=== PATIENT | male | born 1950 | race African-American/Black ===

== ENCOUNTER 2018-04-01 06:53 | Inpatient (IN) | payer MEDICARE, MEDICAID ==
[2018-04-01] MEDS ORDERED: Aspirin 325 MG TAB ONE (07:52)
[2018-04-01 08:01] LABS: CKMB 2.5 ng/mL (0-6.6); Troponin I 0.097 ng/mL (< 0.028)
[2018-04-01] MEDS ORDERED: Ondansetron ODT 4 MG TAB SL PRN (09:21)
[2018-04-01] MEDS ORDERED: Ondansetron HCl/PF 4 MG/2 ML Vial IVP PRN (09:21)
[2018-04-01] MEDS ORDERED: Acetaminophen 325 MG TAB PO PRN ×2 (09:21→13:52)
[2018-04-01 10:31] LABS: HBSAB Concentration 5.08 mIU/mL; HBSAg Index 0.25 S/CO (0-0.99); Hep B Surf AB Non-Reactive (NonReactive); Hep B Surf Ag Non-Reactive S/CO (NonReactive)
--- NOTE | 2018-04-01 12:12 | CON ---
DATE OF CONSULTATION: 04/01/2018 REASON FOR CONSULTATION: End-stage renal disease for maintenance hemodialysis. HISTORY OF PRESENT ILLNESS: This is a very pleasant 67-year-old gentleman who presented to the [facility] with a 1 day history of increasing shortness of breath. The patient did dialyze yesterday. The patient has ascites as well as hepatitis C. PAST MEDICAL HISTORY: Significant for end-stage renal disease, hypertension, anemia, AV fistula, alicia neled dialysis catheter, atrial fibrillation, hepatitis C, COPD. ALLERGIES: Reviewed. SOCIAL AND ECONOMIC HISTORY: No alcohol or IV drug abuse. FAMILY HISTORY: Negative for end-stage renal disease. REVIEW OF SYSTEMS: A 15-point review of systems was performed and negative except for positives note d above. GENERAL: Weakness-. HEAD: Headache-. NECK: No swelling or lumps. NOSE: No epistaxis or discharge. EYES: No diplopia or pain. RESPIRATORY: Dyspnea-. CARDIOVASCULAR: Chest pain-. GASTROINTESTINAL: Nausea-. /MANAGER SOURCING: Hematuria-. MUSCULOSKELETAL: No joint pain. NEUROPSYCHIATIC SYSTEMS: No suicidal ideation. No ideation. SKIN: Denies any rash or ulcer. CONSTITUTIONAL: No fever or chills. PHYSICAL EXAMINATION: GENERAL: Patient is awake, alert. VITAL SIGNS: Afebrile, pulse 70, breathing at 16, blood pressure 130/70. GENERAL APPEARANCE AND MENTAL STATUS: Fair. HEAD/NECK: Normocephalic. Atraumatic. EYES: EOMI. No deformity. EARS: Clear. No ulcers. NOSE: Intact. No lesions. MOUTH: Clear. No discharge. THROAT: Clear. No exudate. LUNGS: Clear. No crackles. CARDIAC: S1, S2. No rub. ABDOMEN: Benign. BS+. GENITALIA/RECTUM: Rosario absent. BACK/EXTREMITIES: Edema 0+ Ulcer-. NEUROLOGICAL: Alert and motor intact. SKIN: Rash- Bruise- LYMPHATICS: Edema- Ulcer-. LABORATORY DATA: Show potassium is 4.7. ASSESSMENT AND PLAN: 1. Stage 6 chronic kidney disease, we will plan hemodialysis. 2. Hypertension, stable. 3. Anemia, stable. 4. Medication based on glomerular filtration rate is appropriate.
[2018-04-01 13:21] LABS: Troponin I 0.098 ng/mL (< 0.028)
[2018-04-01] MEDS ORDERED: PROVENTIL INHALER 6.7 G (200 INHALATIONS) INH PRN (14:02)
[2018-04-01 15:01] LABS: INR-International Normal Ratio 1.2; PTT 35.7 SEC (22.9-36.1); Prothrombin Time 15.6 SEC (12.0-14.7)
[2018-04-01] MEDS ORDERED: Warfarin Sodium 7.5 MG TAB PO SCH (17:00)
--- NOTE | 2018-04-01 17:28 | CON ---
DATE OF CONSULTATION: 04/01/2018 REASON FOR CONSULTATION: Atrial flutter. HISTORY OF PRESENT ILLNESS: Mr. Molina is a pleasant 67-year-old - [place] gentleman who comes to the hospital for shortness of breath. He has end-stage renal disease on hemodialysis and has a hepatitis C with cirrhosis. He has a history of atrial fibrillation, which according to him, he was diagnosed recently with this and he comes in short of breath. He was found to be a little volume overload, so he had another round of hemodialysis and on monitoring, it was found that he was in atrial flutter with 3:1 block and Cardiology is being consulted for this. Mr. Molina states his breathing is a little better after the other round of dialysis today. PAST MEDICAL HISTORY: 1. End-stage renal disease on hemodialysis above. 2. Hypertension. 3. Anemia of chronic disease. 4. Atrial fibrillation. 5. Hepatitis C cirrhosis. 6. COPD. PAST SURGICAL HISTORY: 1. AV fistula. 2. Hemodialysis catheter in the past. 3. Paracentesis for diagnostic purposes in the past. OUTPATIENT MEDICATIONS: Include: 1. Dialyvite 800 Ultra D. 2. Oracle p.r.n. 3. Minoxidil 5 mg p.o. b.i.d. 4. Sensipar. 5. Norvasc 10 mg a day. 6. Losartan 100 mg a day. 7. Metoprolol tartrate 25 mg b.i.d. 8. Warfarin 7.5 mg a day. ALLERGIES: No known drug allergies. SOCIAL HISTORY: No alcohol, tobacco or drugs. FAMILY HISTORY: Noncontributory. REVIEW OF SYSTEMS: A 12-point review of systems was done and is all negative except stated in history of present illness. PHYSICAL EXAMINATION: VITAL SIGNS: Temperature 98.6, pulse 105 to 115, respiratory rate 18, satting 97% on 2 liters, blood pressure 147/89. GENERAL: Awake, alert, oriented x3, in no distress. HEENT: Normocephalic, atraumatic. NECK: Supple. LUNGS: Lungs are reduced breath sounds bilaterally. CARDIOVASCULAR: S1, S2. Heart rate in the 110s. ABDOMEN: Distended with positive ascitic wave. EXTREMITIES: 1+ edema. SKIN: Warm and dry. LABORATORY WORK: Reviewed. CBC with a white count of 7.3, hemoglobin of 8.6, hematocrit 26.7, and platelet count 179. Coags were unremarkable. INR is 1.2, suggestive of him not taking any of his warfarin. Chemistries with sodium of 142, potassium 4.7, BUN 57, creatinine 10.18, GFR of 6. Lactic acid was 1.5. Ammonia was 87, CK-MB of 2.6 and 2.5. Troponin I is 0.12, 0.09 and 0.09. BNP was . Plasma alcohol was undetectable. Hepatitis B surface antigen and antibody surface antigen and antibody are both nonreactive. Chest x-ray, stable cardiomegaly but no CHF. ASSESSMENT AND PLAN: 1. Atrial flutter. 2. History of atrial fibrillation. 3. Hepatitis C cirrhosis. 4. End-stage renal disease, on hemodialysis. 5. Volume overload. 6. Elevated ammonia level. PLAN: 1. We will slow him down with IV diltiazem. 2. He has very few choices for antiarrhythmics given his liver dysfunction. We will consult EP if he does not convert in the next few days, therefore unable to slow him down. 3. Would stop warfarin for now. He has elevated ammonia which could indicate GI bleeding and with cirrhosis not a good candidate for any anticoagulation. Thank you for letting us to assist in the care of your patient. We will follow. TORI
--- NOTE | 2018-04-01 18:02 | HP ---
DATE OF ADMISSION: 04/01/2018 CHIEF COMPLAINT: Shortness of breath. HISTORY OF PRESENT ILLNESS: Patient is a very pleasant 67-year-old male who presents to the hospital with shortness of breath x1 week. Patient has a history of cirrhosis secondary to hepatitis C. He has a history of end-stage renal disease on dialysis. The patient further states that he was at [facility] a few days ago for about a week for shortness of breath. The patient does not recall what was done at the hospital; however, stated that he went home, felt very short of breath and so he decided to come back to the hospital and since he had elevated troponins, he was transferred here for further evaluation. Patient states that he has been going to dialysis every single day while he was at the hospital at [place]. The patient denies any fevers or chills. He denied any chest pain. Patient states that normally he is able to walk around; however, for the past month he has not been able to walk around very much. He gets very short of breath. He does use 2 liters of oxygen on a daily basis. PAST MEDICAL HISTORY: He has a history of cirrhosis. He has a history of hepatitis C, hypertension, end-stage renal disease. PAST SURGICAL HISTORY: He has had a bypass. He also has a fistula, has a hernia repair. SOCIAL HISTORY: The patient has a history of smoking in the past; however, currently does not smoke. Denies any alcohol or drug use. The decision maker, patient mentioned, are his kids and the patient wants to be a F[employer]. FAMILY HISTORY: Denies any history of heart disease or heart failure. ALLERGIES: No known allergies. CURRENT MEDICATIONS: He takes metoprolol 150 mg twice a day, losartan 100 mg daily, Sensipar 60 mg daily, Coumadin 7.5 mg daily, amlodipine 10 mg daily, calcium acetate 1 daily, [place] 10/325 q.6 hours p.r.n. PHYSICAL EXAMINATION: VITAL SIGNS: Temperature of 98.6, 105, 18, 97 on 2 liters, 147/89. GENERAL: He is awake, alert, oriented x3, appears a little short of breath. He appears more older than his stated age. HEENT: Patient has significant dilated superficial veins, especially noted in his left upper extremity where his dialysis all the way up to his chest is. He does have significant JVD which is noted. CARDIOVASCULAR: S1, S2 present, which is irregularly irregular. He appears to be a little tachycardic. LUNGS: Mild decreased breath sounds bilaterally with mild crackles to bilateral lower bases. ABDOMEN: Obese. Bowel sounds present. EXTREMITIES: No edema to lower extremities. NEUROLOGIC: No focal deficits noted. SKIN: Intact. No cuts or lesions noted. REVIEW OF SYSTEMS: All negative except the ones mentioned above in the HPI. LABORATORY RESULTS: Are the following: WBC of 7.3, hemoglobin of 8.6, hematocrit of 26.7, platelets of 179. Chemistry: Sodium of 142, potassium of 4.7, BUN of 57, creatinine of 10.18. His proBNP is 3736. Troponins are mildly elevated. Ammonia level is 87. He did have a chest x-ray which indicated cardiomegaly with mild effusion. The chest x-ray is indicated that the patient has a new endograft stent overlying the medial aspect of the left upper hemothorax. ASSESSMENT AND PLAN: The patient is a very pleasant 67-year-old male who presents to the hospital with shortness of breath. 1. Shortness of breath. This could be secondary to acute on chronic, there is systolic versus diastolic heart failure. I do have an echocardiogram; however, this was done in 2015. I do not have a recent echocardiogram. We will try and get records from [facility] and see if this is in terms of heart failure. The other possibilities could be secondary to volume overload secondary to end-stage renal disease and also cirrhosis. Patient states he has been going to his dialysis sessions. We will consult Nephrology to continue that. 2. Atrial flutter. He is mildly tachycardic. We will consult Cardiology also , put the patient on some rate-limiting medications to hopefully slow down the heart rate a little bit. 3. Hypertension. We will continue patient's home medications. 4. End-stage renal disease on dialysis. We will consult Nephrology. 5. Mildly elevated troponins. We will get an echocardiogram and also get results from [facility]. 6. Deep venous thrombosis prophylaxis. will put pt on scd. hold Coumadin high risk of bleeding MTDD
[2018-04-01] MEDS: Diltiazem 125 MG in Sodium Chloride 0.9% 100 ML IVPB SCH (18:19)
[2018-04-01] MEDS: Cinacalcet HCl 30 MG TAB PO SCH (20:14)
[2018-04-01] MEDS: Metoprolol Tartrate 100 MG TAB PO SCH (20:14)
[2018-04-01] MEDS ORDERED: Prevnar 13-Val Conj/PF 0.5 ML SYRINGE IM ONE (21:00)
[2018-04-02 05:51] LABS: Anion Gap 19 mmol/L (10-20); BUN (Urea Nitrogen) 55 mg/dL (8.4-25.7); Calc. Creatinine Clearance 7 mL/min (70-130); Calcium 10.1 mg/dL (7.8-10.44); Carbon Dioxide 24 mmol/L (23-31); Chloride 102 mmol/L (98-107); Estimated GFR-MDRD 7; Glucose 96 mg/dL (80-115); Potassium 5.3 mmol/L (3.5-5.1); Sodium 140 mmol/L (136-145)
[2018-04-02 06:58] LABS: Band 1 % (5-11); Eosinophils 3 % (0-10); Lymphocytes 14 % (21-51); MDiff Complete? YES; Mean Corpuscular HGB CONC 31.9 g/dL (32.0-36.0); Mean Corpuscular Volume 94.2 fL (78.0-98.0); Monocytes 10 % (0-10); Neutrophil 71 % (42-75); PLT Morphology Comment Appears Adequate; Platelet Count 198 thou/uL (130-400); RBC Distribution Width 15.3 % (11.5-14.5); Red Blood Cell (RBC) Count 2.99 mill/uL (4.70-6.10); Target Cells SLIGHT = 2-5 cells (100X) (0-1/hpf); White Blood Cell (WBC) Count 7.9 thou/uL (4.8-10.8)
[2018-04-02] MEDS ORDERED: Losartan 25 MG TAB PO SCH (09:00)
[2018-04-02] MEDS ORDERED: Ondansetron HCl/PF 4 MG/2 ML Vial IVP SCH (09:00)
[2018-04-02] MEDS ORDERED: Pantoprazole 40 MG VIAL IVP SCH (10:00)
[2018-04-02] MEDS: Cinacalcet HCl 30 MG TAB PO SCH ×2 (11:59→21:18)
[2018-04-02] MEDS: Aspirin 81 mg Enteric Coated Tablet PO SCH (12:00)
[2018-04-02] MEDS: Metoprolol Tartrate 100 MG TAB PO SCH ×2 (12:00→21:22)
[2018-04-02] MEDS: Amlodipine 10 MG TAB PO SCH (12:00)
--- NOTE | 2018-04-02 12:11 | CT ---
CT BRAIN PERFORMED WITHOUT CONTRAST ENHANCEMENT: Date: 04/02/18 HISTORY: Altered mental status, right-sided weakness. COMPARISON: 06/06/03 study. FINDINGS: There is generalized ventricular and sulcal prominence. There is decreased attenuation of the periven tricular white matter. There are no signs of intracerebral hemorrhage or extra-axial fluid collection s. Mastoid air cells and visualized sinuses are clear. IMPRESSION: No acute intracranial abnormalities. POS: [facility]
[2018-04-02 12:19] LABS: Hemoglobin 8.9 g/dL (14.0-18.0)
[2018-04-02 12:42] LABS: Anion Gap 17 mmol/L (10-20); BUN (Urea Nitrogen) 61 mg/dL (8.4-25.7); Calc. Creatinine Clearance 7 mL/min (70-130); Calcium 9.7 mg/dL (7.8-10.44); Carbon Dioxide 27 mmol/L (23-31); Chloride 102 mmol/L (98-107); Estimated GFR-MDRD 7; Glucose 91 mg/dL (80-115); Potassium 5.5 mmol/L (3.5-5.1); Sodium 140 mmol/L (136-145)
--- NOTE | 2018-04-02 13:28 | PRG ---
DATE OF SERVICE: 04/30/2018 SUBJECTIVE: A 67-year-old gentleman being seen for acute kidney injury. The patient denies any naus ea, vomiting, or chest pain. PHYSICAL EXAMINATION: GENERAL: Patient is awake, alert. VITAL SIGNS: Afebrile, pulse 74, breathing 16, blood pressure 138/85. HEAD/NECK: Normocephalic. Atraumatic. EYES: EOMI. No deformity. EARS: Clear. No ulcers. NOSE: Intact. No lesions. MOUTH: Clear. No discharge. THROAT: Clear. No exudate. LUNGS: Clear. No crackles. CARDIAC: S1, S2. No rub. ABDOMEN: Benign. BS+. GENITALIA/RECTUM: Rosario absent. BACK/EXTREMITIES: Edema 0+ Ulcer- NEUROLOGICAL: Alert and motor intact. SKIN: Rash- Bruise- LYMPHATICS: Edema- Ulcer- LABORATORY DATA: Show hemoglobin 8.9, potassium is 5.5. ASSESSMENT AND RECOMMENDATIONS: 1. Stage 6 chronic kidney disease, plan dialysis today. 2. Hyperkalemia, plan dialysis. 3. Anemia, stable. 4. Medications based on glomerular filtration rate are appropriate.
--- NOTE | 2018-04-02 14:37 | PDOC.PN ---
- Subjective Encounter Start Date: 04/02/18 Encounter Start Time: 10:30 Subjective: pt up in bed appeared confused this am - Objective Resuscitation Status: Resuscitation Status FULL:Full Resuscitation Vital Signs & Weight: Vital Signs (12 hours) Temp Pulse Resp BP BP Pulse Ox 04/02/18 12:00 104 H 04/02/18 11:49 97.7 F 104 H 18 156/98 H 99 04/02/18 09:05 98.1 F 104 H 18 92 L 04/02/18 08:34 98.1 F 107 H 20 138/85 92 L 04/02/18 04:00 97.8 F 73 19 150/74 H 96 Weight Weight 141 lb 9.6 oz I&O: 04/01/18 04/02/18 04/03/18 06:59 06:59 06:59 Intake Total 963.1 240 Output Total 300 Balance 663.1 240 Result Diagrams: 04/02/18 12:11 04/02/18 12:11 Phys Exam - Physical Examination pt has significant dilated superfical veins Neck: no nodes, no JVD, supple, full ROM decreased breath sound to bases Cardiovascular: RRR, no significant murmur, no rub, gallop, irregular Gastrointestinal: soft, non-tender, no distention, positive bowel sounds Musculoskeletal: no edema, pulses present, edema present Dx/Plan (1) SOB (shortness of breath) Code(s): R06.02 - SHORTNESS OF BREATH Status: Acute (2) Cirrhosis Code(s): K74.60 - UNSPECIFIED CIRRHOSIS OF LIVER Status: Acute (3) ESRD (end stage renal disease) on dialysis Code(s): N18.6 - END STAGE RENAL DISEASE; Z99.2 - DEPENDENCE ON RENAL DIALYSIS Status: Chronic (4) Hyperkalemia Code(s): E87.5 - HYPERKALEMIA Status: Acute - Plan nurse called this am stating pt very disoriented, at bedside pt awake and -: oriented x2. He stated " leave me alone". pt had emesis x1 today -: he has been given K binder by nephro for hyperkalemia. -: ct head negative, elevated ammonia. will start pt on laculose in am and -: rifaxmine now. pt became bradycardiac last night so drip was off. * . Review of Systems - Review of Systems Respiratory: negative: Cough, Dry, Shortness of Breath, Hemoptysis, SOB with Excertion, Pleuritic Pain, Sputum, Wheezing Cardiovascular: negative: chest pain, palpitations, orthopnea, paroxysmal nocturnal dyspnea, edema, light headedness, other Gastrointestinal: Abdominal Pain Genitourinary: negative: Dysuria, Frequency, Incontinence, Hematuria, Retention , Other Musculoskeletal: negative: Neck Pain, Shoulder Pain, Arm Pain, Back Pain, Hand Pain, Leg Pain, Foot Pain, Other - Medications/Allergies Allergies/Adverse Reactions: Allergies Allergy/AdvReac Type Severity Reaction Status Date / Time No Known Allergies Allergy Verified 04/01/18 16:23 Medications: Current Medications Acetaminophen (Tylenol) 650 mg PO Q4H PRN PRN Reason: Headache/Fever or Pain Albuterol Sulfate (Proventil Hfa) 1 puff INH Q4HR PRN PRN Reason: SOB &/or Wheezing Amlodipine Besylate (Norvasc) 10 mg PO DAILY [facility] Last Admin: 04/02/18 12:00 Dose: 10 mg Aspirin (Ecotrin) 81 mg PO DAILY [facility] Last Admin: 04/02/18 12:00 Dose: 81 mg Cinacalcet (Sensipar) 15 mg PO BID [facility] Last Admin: 04/02/18 11:59 Dose: 15 mg Diltiazem HCl 125 mg/ Sodium (Chloride) 125 mls @ 5 mls/hr IVPB INF [facility]; Protocol Last Admin: 04/01/18 18:19 Dose: 125 mls Losartan Potassium (Cozaar) 100 mg PO DAILY [facility] Last Admin: 04/02/18 11:59 Dose: 100 mg Metoprolol Tartrate (Lopressor) 100 mg PO BID [facility] Last Admin: 04/02/18 12:00 Dose: 100 mg Miscellaneous Medication (Pharmacy To Dose) 1 each PO PRN PRN PRN Reason: Pharmacy to dose Pantoprazole Sodium (Protonix) 40 mg IVP Q12HR [facility] Sodium Chloride (Flush - Normal Saline) 10 ml IVF PRN PRN PRN Reason: Saline Flush Sodium Polystyrene Sulfonate (Kayexelate Oral Susp 15 Gm/60 Ml) 30 gm PO NOW [facility] Stop: 04/02/18 15:30
--- NOTE | 2018-04-02 16:06 | PDOC.EVN ---
Event Note - Event Note Event Note: Nurse called pt vomited again. Emesis appears dark brown, hard to say if there is blood. He is more confused. He does have chunks of food in his emesis. will check gastric occult. He is on ppi if occult positive will start octretide drip and call gi. He has had SBO in the past. will get kub. will also get cxr for concerns of aspiration pna and will start pt on broad spectrum abx. Family member called and message left. Pt will be transferred to [facility].
[2018-04-02 16:24] LABS: Actual Bicarbonate (HCO3a) 27.6 mEq/L (22-28); Base Excess (BEa) 3.5 mEq/L (-2.0 to +3.0); CO2 Tension 40.1 mmHg (35.0-45.0); Carboxyhemoglobin (COHb) 1.5 gm% (0.0-3.0); Hemoglobin (Hb) 9.6 g/dL (14.0-18.0); O2 Tension (PaO2) 75.4 mmHg (> 80.0); pH, Arterial 7.45 (7.35-7.45)
[2018-04-02 16:25] LABS: Potassium - ABG Lab 5.6 mmol/L (3.70-5.30); Puncture Site RBA
[2018-04-02] MEDS: Ipratropium Bromide 2.5 ml Neb NEB SCH ×3 (16:37→22:30)
--- NOTE | 2018-04-02 16:59 | RAD ---
AP CHEST: Indication: Shortness of breath. Comparison: 04-01-18 FINDINGS: There is prominent cardiomegaly with pulmonary vascular congestion. Hilar interstitial and airspace o pacities suspicious for CHF. Endovascular stent overlying the medial upper hemithorax is stable. No p leural effusion or pneumothorax is grossly evident. Chronic osseous changes is similar. IMPRESSION: Worsening perihilar and interstitial/airspace opacities suspicious for worsening pulmonary edema. Car diomegaly and mild pulmonary vascular congestion persists. POS: [facility]
--- NOTE | 2018-04-02 17:01 | PDOC.CTH ---
Cardiology Progress Note - Subjective He is more confused today and throwing up black emesis. - Objective Vital Signs Temp Pulse Resp BP BP Pulse Ox 04/02/18 16:37 100 30 H 04/02/18 15:38 97.9 F 98 20 124/82 97 04/02/18 12:00 104 H 04/02/18 11:49 97.7 F 104 H 18 156/98 H 99 04/02/18 09:05 98.1 F 104 H 18 92 L 04/02/18 08:34 98.1 F 107 H 20 138/85 92 L Weight 141 lb 9.6 oz 04/01/18 04/02/18 04/03/18 06:59 06:59 06:59 Intake Total 963.1 240 Output Total 300 Balance 663.1 240 - Physical Examination General/Neuro: other: (confused.) Neck: no JVD present Lungs: unlabored respirations Heart: RRR Abdomen: NT/ND Extremities: + edema B (1+) - Telemetry Telemetry Rhythm: Aflutter HR 90-105 - Labs Result Diagrams: 04/02/18 12:11 04/02/18 12:11 Troponin/CKMB CK-MB (CK-2) 2.5 ng/mL (0-6.6) 04/01/18 07:26 Troponin I 0.098 ng/mL (< 0.028) H 04/01/18 12:26 - Assessment/Plan 1. Atrial flutter 2. Hep C Cirrhosis 3. AMS, likely from ammonia level. 4. Possible GI bleeding. 5. ESRD on HD PLAN: - Continue to rate control only for flutter. - Agree with transfer to ICU for closer monitoring. - No anticoagulation or aspirin for stroke prophylaixs due to possiblke GI bleedinhg and Hep C Cirrhosis. - Will follow.
--- NOTE | 2018-04-02 17:01 | RAD ---
KUB: Indication: Nausea, vomiting. Comparison: 04-21-15 FINDINGS: There is an endograft stent within the right upper quadrant of the abdomen and may reflect a Tips eli nt. Lung bases are clear. Bowel gas pattern is unobstructed. No acute osseous abnormality is evident. IMPRESSION: 1. Suspected Tips shunt within the right upper quadrant of the abdomen. 2. Nonspecific bowel gas pattern without oscar evidence of obstruction. POS: [facility]
[2018-04-02] MEDS ORDERED: Octreotide Acetate 1,250 MCG in Sodium Chloride 0.9% 250 ML 250 ML IVPB SCH (17:30)
[2018-04-02] MEDS: Midazolam HCl 2 mg/2 ml Vial ONE ×2 (17:34→17:35)
[2018-04-02] MEDS ORDERED: Propofol 1,000 MG/100 ML VIAL IV ONE (17:39)
[2018-04-02] MEDS ORDERED: Albuterol Sulfate 2.5 mg/3 ml Neb ONE (17:50)
[2018-04-02 18:03] LABS: Actual Bicarbonate (HCO3a) 25.4 mEq/L (22-28); Base Excess (BEa) 0.4 mEq/L (-2.0 to +3.0); CO2 Tension 39.9 mmHg (35.0-45.0); O2 Tension (PaO2) 61.6 mmHg (> 80.0); pH, Arterial 7.41 (7.35-7.45)
[2018-04-02 18:04] LABS: Calcium, Ionized 1.13 mmol/L (1.12-1.30); Carboxyhemoglobin (COHb) 1.5 gm% (0.0-3.0); Hemoglobin (Hb) 9.2 g/dL (14.0-18.0); Potassium - ABG Lab 5.6 mmol/L (3.70-5.30)
[2018-04-02 18:10] LABS: ALV-art Gradient 102.425 (0-20); Puncture Site R BRACHIAL
[2018-04-02] MEDS ORDERED: Ipratropium Bromide 2.5 ml Neb ONE (18:16)
--- NOTE | 2018-04-02 18:37 | CON ---
DATE OF CONSULTATION: 04/02/2018 HISTORY OF PRESENT ILLNESS: Jesse is a 67-year-old male who was moved from the telemetry unit to the IMU and then shortly thereafter to the ICU. He has had an altered mental status, has vomited today. He did not vomit blood but his emesis was heme positive. He has an exam suggestive of ascites. He has end-stage renal disease and cirrhosis. He has a mature graft in his left arm. Reviewing records, he has been followed in the [facility] and multiple visits with Makayla in the [facility]. He has undergone a paracentesis in the past in 04/2015. He has been followed by Dr. De Los Santos in the past and Dr. Paulino in the past, reviewing old records. He has a history of hepatitis C. He has had an inguinal herniorrhaphy in the past. He has been multiple times. I am told he has several children and he lives in the [place] area. 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 Paulino. This is on closer questioning, he admitted that he might have used IV drugs in the past. SOCIAL HISTORY: He is nonsmoker, nondrinker. FAMILY HISTORY: Negative for lung disease in early age. REVIEW OF SYSTEMS: 10 point review of systems completed. He is obtunded, so no review of systems is obtainable. PHYSICAL EXAMINATION: GENERAL: He had a long expiratory phase with increased work of breathing. He is using his accessory muscles. He is using his abdominal muscles to exhale. VITAL SIGNS: He is afebrile, heart rate was around 100. Blood pressure is 120 , this has been as high as 156 today systolic. Oximetry is 97. HEENT: Pupils are reactive. Sclerae is anicteric. Extraocular movements are difficult to discuss because of his combative behavior, quickly go back to sleep when he was stimulated. LUNGS: Remarkable for mild rhonchi on the right. His left lung was clear when I was doing. HEART: Regular rhythm. S1 and S2 are normal. ABDOMEN: Soft and nontender. EXTREMITIES: Without asymmetry, clubbing or cyanosis. NEUROLOGIC: He moved all extremities with considerable strength. LABORATORY DATA: White count 7.9, hemoglobin 9.0, platelets 198. Repeat hemoglobin 7 hours later was 8.9. Sodium 140, potassium 5.5, chloride 102, bicarbonate 27, BUN 16, creatinine 9.56. PH is 7.45, CO2 of 40, pO2 of 75. IMPRESSION: His exam suggestive of ascites and significantly increased work of breathing. Although code is not impending, I doubt he would make at 12 hours of his current respiratory status, he may not make it through the night. I recommended intubation. He certainly has an exam suggestive of chronic obstructive pulmonary disease. I can find reviewing all records and a history of heavy smoking. He has been followed in the Heart Failure Clinic. I found an echo from 2015 that showed an ejection fraction of 55-60 with left ventricular hypertrophy. He will need central line access and place femoral vein line once we have intubated and sedated. It is interesting to note that he does have a history of an upper extremity thrombosis in the past from 2015 note. Critical care time 40 minutes independent of the procedures performed. TORI
--- NOTE | 2018-04-02 18:38 | OP ---
DATE OF PROCEDURE: 04/02/2018 PROCEDURE: Right femoral vein line. INDICATION: Need for multiple drug access, potential hypotension after respiratory failure. There is no family available for consent. It was deemed an emergent procedure: Right femoral area was prepped with chlorhexidine. Once his groin was shaved and cleansed with chlorhexidine very thoroughly, his femoral vein was easily cannulated with an introducer needle followed by a wire. Vein dilator was inserted after a small incision was made with a #11 blade. Triple lumen catheter was inserted completely and sewn in place x2. All 3 ports were flushed with saline. Sterile dressing was applied. He tolerated the procedure well. TORI
--- NOTE | 2018-04-02 19:08 | CON ---
DATE OF CONSULTATION: 04/02/2018 HISTORY OF PRESENT ILLNESS: The patient is a 67-year-old -Serbian gentleman who presented to the hospital with shortness of breath. He has end-stage renal disease on hemodialysis and also cirr hosis secondary to hepatitis C. Apparently, he became obtunded on the medical floor and was intubate d and sent to the ICU. He did have an episode of emesis that was blood tinged. He has had no emesis here in the ICU. He is intubated and adds nothing to history of present illness. PAST MEDICAL HISTORY: End-stage renal disease on hemodialysis, cirrhosis secondary to hepatitis C, h ypertension. PAST SURGICAL HISTORY: He has a fistula, hernia repair and has had coronary artery bypass. SOCIAL HISTORY: No smoking, no alcohol. FAMILY HISTORY: Unobtainable. REVIEW OF SYSTEMS: Unobtainable. ALLERGIES: According to the patient's electronic medical record. ALLERGIES: No known allergies. HOME MEDICATIONS: Coumadin 7.5 mg p.o. every day, minoxidil 5 mg p.o. b.i.d., Toprol 25 mg p.o. b.i. d., losartan 100 mg p.o. daily, hydrocodone 1 p.o. q.6 hours p.r.n., Dialyvite 800/Ultram D 1 p.o. da nikko, Sensipar 60 mg p.o. every day, Norvasc 10 mg p.o. daily. PHYSICAL EXAMINATION: GENERAL: Shows intubated, -Serbian gentleman in no acute distress. NECK: Supple. CHEST: Clear. CARDIOVASCULAR: Regular rate and rhythm. ABDOMEN: Protuberant, soft with hepatomegaly, no splenomegaly is appreciable. EXTREMITIES: Normal except for the left upper quadrant where he has a fistula and large collateral v eins going into his chest. LABORATORY DATA: Previous laboratories show a hepatitis C to be positive with RNA positive. Plasma alcohol is less than 10. Chemistry significant for potassium of 5.5, BUN 61, creatinine 9.56. CBC s hows a white blood cell count of 7.9, hemoglobin 9.0 with a repeat of 8.9, platelet count 198. PT is 15.6 with an INR of 1.2. ASSESSMENT: 1. Altered mental status - this could represent hepatic encephalopathy from SBP. 2. Hyperkalemia. 3. End-stage renal disease, on hemodialysis. 4. Dyspnea. 5. Ascites. 6. Cirrhosis secondary to hepatitis C. RECOMMENDATIONS: 1. Diagnostic paracentesis. 2. Serial H&H. 3. PPI. 4. No need for octreotide at this time. 5. No endoscopy at this time.
--- NOTE | 2018-04-02 19:11 | OP ---
PREOPERATIVE DIAGNOSIS: Ascites, rule out SBP. PROCEDURE IN DETAIL: The area in the right lower quadrant was prepped and draped in usual manner. A small needle was inserted through the abdominal wall and a small amount of brown clear colored fluid was aspirated. This will be sent for cell count and diff, approximately a total of 10-15 10 mL aspi rated. ASSESSMENT: Diagnostic paracentesis. RECOMMENDATIONS: Cell count with diff.
[2018-04-02 19:18] LABS: Anion Gap 15 mmol/L (10-20); BUN (Urea Nitrogen) 67 mg/dL (8.4-25.7); Calc. Creatinine Clearance 7 mL/min (70-130); Calcium 9.2 mg/dL (7.8-10.44); Carbon Dioxide 27 mmol/L (23-31); Chloride 103 mmol/L (98-107); Estimated GFR-MDRD 7; Glucose 91 mg/dL (80-115); Sodium 139 mmol/L (136-145)
[2018-04-02] MEDS: Piperacillin/Tazobactam 3.375 GM in Sodium Chloride 0.9% 100 ML IVPB SCH ×2 (19:18→21:23)
[2018-04-02] MEDS: Sodium Chloride 0.9% 1,000 ML IV SCH (20:20)
[2018-04-02 20:34] LABS: BF Color Yellow; BF RBC Count - Manual 2740 /cumm; Body Fluid Source PARACENTESIS FLD; Clarity Hazy (Clear); RBC Background Count 0.001; Tube # EDTA; WBC/NonHematic-Auto 257 /cumm
[2018-04-02] MEDS ORDERED: Lorazepam 2 MG/ML VIAL SLOW IVP PRN (20:36)
[2018-04-02] MEDS ORDERED: Fentanyl BOLUS 250 ML IVPB PRN (20:36)
[2018-04-02] MEDS ORDERED: Propofol BOLUS 1,000 MG/100 ML VIAL IV PRN (20:36)
[2018-04-02] MEDS ORDERED: fentaNYL Citrate/PF 2,000 MCG in Sodium Chloride 0.9% 60 ML IV SCH (20:36)
[2018-04-02] MEDS ORDERED: DISCONTINUE PREVIOUS NARCOTIC PAIN MEDICATIONS AND BENZODIAZEPINES FS SCH (20:36)
[2018-04-02 20:59] LABS: BF Segmented Neutrophils 3 %; Cell Count Non Hematic 85 %; Lymphocytes 12 %
[2018-04-02] MEDS: Pantoprazole 40 MG VIAL IVP SCH (21:22)
[2018-04-02] MEDS: Rifaximin 550 MG TAB PO SCH (21:23)
[2018-04-02] MEDS: Albuterol Sulfate 1.25 MG/3 ML NEB NEB SCH ×4 (22:28→22:34)
--- NOTE | 2018-04-03 00:45 | OP ---
DATE OF PROCEDURE: 04/02/2018 DESCRIPTION OF PROCEDURE: Mr. Molina was given 1 mg of Versed. Bite block was then placed in his mouth. Fiberoptic bronchoscope was passed down through his cords. His cords appeared normal. The scope was passed through his cords _ ____ main patti. Endotracheal tube was advanced and secured in place approximately 2 cm above the main patti. His tracheobronchial tree was free of secretions. His upper airway was free of secretions. There is no evidence of aspiration on endoscopy. He tolerated the procedure well. He was then given 3 more mg of Versed and 100 mg of rocuronium. Propofol drip has been started as this is being dictated. He has had no hemodynamic instability with intubation, nor did he have any hypoxemia. TORI
[2018-04-03] MEDS: Albuterol Sulfate 1.25 MG/3 ML NEB NEB SCH ×6 (02:10→06:48)
[2018-04-03] MEDS: Ipratropium Bromide 2.5 ml Neb NEB SCH ×2 (02:12→06:47)
[2018-04-03] MEDS: Piperacillin/Tazobactam 3.375 GM in Sodium Chloride 0.9% 100 ML IVPB SCH ×4 (04:37→21:06)
[2018-04-03 05:24] LABS: Band 5 % (5-11); Eosinophils 2 % (0-10); Hemoglobin 8.2 g/dL (14.0-18.0); Lymphocytes 7 % (21-51); MDiff Complete? YES; Mean Corpuscular HGB CONC 32.5 g/dL (32.0-36.0); Mean Corpuscular Hemoglobin 29.6 pg (27.0-31.0); Mean Corpuscular Volume 91.3 fL (78.0-98.0); Mean Platelet Volume 7.9 fL (7.4-10.4); Monocytes 21 % (0-10); Neutrophil 63 % (42-75); Platelet Count 215 thou/uL (130-400); RBC Distribution Width 15.3 % (11.5-14.5); Red Blood Cell (RBC) Count 2.75 mill/uL (4.70-6.10)
[2018-04-03 05:36] LABS: ALT (SGPT) 17 U/L (8-55); AST (SGOT) 31 U/L (5-34); Albumin 2.9 g/dL (3.4-4.8); Alkaline Phosphatase 127 U/L (40-150); Anion Gap 18 mmol/L (10-20); BUN (Urea Nitrogen) 43 mg/dL (8.4-25.7); Bilirubin, Total 0.9 mg/dL (0.2-1.2); Calc. Creatinine Clearance 9 mL/min (70-130); Calcium 9.2 mg/dL (7.8-10.44); Carbon Dioxide 25 mmol/L (23-31); Chloride 102 mmol/L (98-107); Estimated GFR-MDRD 10; Globulin 5.1 g/dL (2.4-3.5); Glucose 82 mg/dL (80-115); Potassium 4.4 mmol/L (3.5-5.1); Sodium 141 mmol/L (136-145)
[2018-04-03] MEDS ORDERED: Albuterol Sulfate 1.25 MG/3 ML NEB NEB PRN (06:52)
[2018-04-03] MEDS ORDERED: Metoprolol Tartrate 100 MG TAB PO SCH (07:00)
[2018-04-03 07:10] LABS: CO2 Tension 29.1 mmHg (35.0-45.0); O2 Tension (PaO2) 65.5 mmHg (> 80.0); pH, Arterial 7.55 (7.35-7.45)
[2018-04-03 07:11] LABS: Actual Bicarbonate (HCO3a) 25.1 mEq/L (22-28); Hemoglobin (Hb) 8.6 g/dL (14.0-18.0)
[2018-04-03 07:12] LABS: Carboxyhemoglobin (COHb) 1.7 gm% (0.0-3.0); Potassium - ABG Lab 4.5 mmol/L (3.70-5.30); Puncture Site RBRACH
[2018-04-03 07:13] LABS: ALV-art Gradient 112.025 (0-20)
--- NOTE | 2018-04-03 08:18 | RAD ---
AP VIEW OF THE CHEST: INDICATION: Intubation. COMPARISON: Prior exam dated 04/02/18. FINDINGS: Slight worsening central edema pattern. Cardiomegaly persists. The patient has been intubated with gastric catheter placement. ET tube tip is 1.7 cm from the level of the patti. No pneumothorax is evident. No acute osseous abnormality is evident. Endovascular stent is unchanged in position. IMPRESSION: 1. Worsening central edema pattern with persistent cardiomegaly. 2. Interval intubation and gastric catheter placement. POS: [facility]
[2018-04-03] MEDS: Amlodipine 10 MG TAB PO SCH (09:32)
[2018-04-03] MEDS: Rifaximin 550 MG TAB PO SCH ×2 (09:33→21:06)
[2018-04-03] MEDS: Aspirin 81 mg Enteric Coated Tablet PO SCH (09:33)
[2018-04-03] MEDS: Pantoprazole 40 MG VIAL IVP SCH ×2 (09:33→21:07)
[2018-04-03] MEDS: Cinacalcet HCl 30 MG TAB PO SCH ×2 (09:33→21:05)
[2018-04-03] MEDS: Metoprolol Tartrate 50 MG TAB PO SCH ×2 (09:33→21:06)
--- NOTE | 2018-04-03 11:49 | PRG ---
DATE OF SERVICE: 04/03/2018 SUBJECTIVE: A 67-year-old gentleman being seen for end-stage renal disease. The patient remains int ubated. PHYSICAL EXAMINATION: GENERAL: Patient is resting. VITAL SIGNS: Afebrile, pulse , breathing at 16, blood pressure 124/84. HEAD/NECK: Normocephali c. Atraumatic. EYES: EOMI. No deformity. EARS: Clear. No ulcers. NOSE: Intact. No lesions. MOUTH: Clear. No discharge. THROAT: Clear. No exudate. LUNGS: Clear. No crackles. CARDIAC: S1, S2. No rub. ABDOMEN: Benign. BS+. GENITALIA/RECTUM: Rosario absent. BACK/EXTREMITIES: Edema 0+ Ulcer-. NEUROLOGICAL: Alert and motor intact. SKIN: Rash- Bruise- LYMPHATICS: Edema- Ulcer-. LABORATORY DATA: Show hemoglobin 8.2, potassium 4.4. ASSESSMENT: 1. Stage 6 chronic kidney disease, stable. 2. Hypertension, stable. 3. Anemia, stable. 4. Multiorgan failure. Management per primary team. No indication for dialysis today. Prognosis i s poor.
--- NOTE | 2018-04-03 11:50 | PRG ---
DATE OF SERVICE: 04/03/2018 Thirty-five minutes critical care time. SUBJECTIVE: This patient remains intubated on mechanical ventilation and seemingly done well overnig ht. PHYSICAL EXAMINATION: VITAL SIGNS: Temperature is 99.3, pulse 100, blood pressure 118/80, 24-hour intake 2191, output 650 plus what was removed by dialysis which is about 300 mL. NEUROLOGIC: He is sedated on mechanical ventilation. HEENT: Pupils react. Sclerae icteric. Oropharynx clear. NECK: He has significant JVD, no bruits. LUNGS: Clear anteriorly. CARDIOVASCULAR: S1, S2 regular. ABDOMEN: Distended, but soft to palpation. EXTREMITIES: No clubbing, cyanosis. Generalized edema throughout. LABORATORY DATA: ABG - pH 7.55, pCO2 of 29, pO2 of 65 on bilevel 28/3 with an FiO2 30%. White blood cell count 7, hematocrit 25.1, platelet count 215. Sodium 141, potassium 4.4, chloride 102, CO2 25, BUN 43, creatinine 7.1, glucose 82. Ascitic fluid showed minimal white blood cells and no neutrophi ls of significance. Chest x-ray shows cardiomegaly and infiltrative changes bilaterally. ASSESSMENT: 1. Acute respiratory failure requiring mechanical ventilation. 2. Ascites. 3. Probable underlying chronic obstructive pulmonary disease. 4. History of congestive heart failure. 5. History of hepatitis C. 6. End-stage renal disease which requires hemodialysis. PLAN: This patient basically has cardiorenal syndrome on top of cirrhosis. He is intubated for volu me overload. I think he is safe to go ahead and switch from bilevel SIMV. I have decreased his rate due to the development of respiratory alkalosis. He is continuing antibiotics for now, although I a m not completely sure what we are treating with that. He will continue dialysis. I will go ahead an d initiate tube feeds. Continue low dose steroids.
--- NOTE | 2018-04-03 13:37 | PRG ---
DATE OF SERVICE: 04/03/2018 SUBJECTIVE: The patient is without complaints. He is somewhat lucid, but still intubated on the oliver tilator. No melena, hematochezia per nursing reports. PHYSICAL EXAMINATION: VITAL SIGNS: Temperature 99.2, pulse 107, respiratory rate 20, blood pressure 123/80. CHEST: Clear. CARDIOVASCULAR: Regular rate and rhythm. ABDOMEN: Soft and protuberant with hepatomegaly appreciable 4 fingerbreadths below the right costal margin. EXTREMITIES: No edema. LABORATORY DATA: Shows a white blood cell count of 8.3, hematocrit 25.1, white blood cell count of 7 .0. Chemistries significant for a BUN 43, creatinine 7.06, albumin 2.9. Paracentesis fluid showed white blood cells 257 with 3% segmental segs. ASSESSMENT: 1. Cirrhosis - stable. 2. End-stage renal disease on hemodialysis. 3. Respiratory failure. 4. Altered mental status - doubt this is a GI event. 5. Ascites - no spontaneous bacterial peritonitis by peritoneal fluid analysis. RECOMMENDATIONS: Begin tube feedings.
[2018-04-03] MEDS: Sodium Chloride 0.9% 1,000 ML IV SCH (17:03)
[2018-04-03] MEDS: Propofol 1,000 MG/100 ML VIAL IV PRN (17:03)
--- NOTE | 2018-04-03 17:12 | PDOC.PN ---
- Subjective Encounter Start Date: 04/03/18 Encounter Start Time: 11:30 Subjective: pt intubated - Objective Resuscitation Status: Resuscitation Status FULL:Full Resuscitation Vital Signs & Weight: Vital Signs (12 hours) Temp Pulse Resp BP Pulse Ox 04/03/18 16:00 99.4 F 27 H 04/03/18 14:27 107 H 129/86 04/03/18 12:00 99.2 F 20 04/03/18 10:29 108 H 130/92 H 04/03/18 10:00 22 H 04/03/18 09:32 110 H 118/80 04/03/18 08:00 99.3 F 108 H 20 98 04/03/18 06:46 110 H 20 98 04/03/18 06:00 20 Weight Admit Weight 130 lb Weight 130 lb 8.218 oz Most Recent Monitor Data Heart Rate from ECG 107 NIBP 118/81 NIBP BP-Mean 88 Respiration from ECG 24 SpO2 97 I&O: 04/02/18 04/03/18 04/04/18 06:59 06:59 06:59 Intake Total 963.1 2191 180 Output Total 300 650 Balance 663.1 1541 180 Result Diagrams: 04/03/18 04:10 04/03/18 04:10 Phys Exam - Physical Examination Neck: no nodes, no JVD, supple, full ROM rhonchi all over Cardiovascular: RRR, no significant murmur, no rub, gallop, irregular Gastrointestinal: soft, non-tender, no distention, positive bowel sounds Dx/Plan (1) SOB (shortness of breath) Code(s): R06.02 - SHORTNESS OF BREATH Status: Acute (2) Cirrhosis Code(s): K74.60 - UNSPECIFIED CIRRHOSIS OF LIVER Status: Acute (3) ESRD (end stage renal disease) on dialysis Code(s): N18.6 - END STAGE RENAL DISEASE; Z99.2 - DEPENDENCE ON RENAL DIALYSIS Status: Chronic (4) Hyperkalemia Code(s): E87.5 - HYPERKALEMIA Status: Acute - Plan will continue abx for now -: vent managment per pulmonary -: will continue ppi -: pt on lactulose, s/p paracentesis * . Review of Systems - Review of Systems Other: unable to obtain - Medications/Allergies Allergies/Adverse Reactions: Allergies Allergy/AdvReac Type Severity Reaction Status Date / Time No Known Allergies Allergy Verified 04/01/18 16:23 Medications: Current Medications Acetaminophen (Tylenol) 650 mg PO Q4H PRN PRN Reason: Headache/Fever or Pain Albuterol Sulfate (Albuterol Sulfate) 1.25 mg NEB Q1H PRN PRN Reason: Dyspnea/Wheezing/SOB Albuterol/Ipratropium (Duoneb) 3 ml NEB [id number] [facility] Last Admin: 04/03/18 14:26 Dose: 3 ml Amlodipine Besylate (Norvasc) 10 mg PO DAILY [facility] Last Admin: 04/03/18 09:32 Dose: 10 mg Aspirin (Ecotrin) 81 mg PO DAILY [facility] Last Admin: 04/03/18 09:33 Dose: 81 mg Cinacalcet (Sensipar) 15 mg PO BID [facility] Last Admin: 04/03/18 09:33 Dose: Not Given Diltiazem HCl 125 mg/ Sodium (Chloride) 125 mls @ 5 mls/hr IVPB INF [facility]; Protocol Last Admin: 04/01/18 18:19 Dose: 125 mls Piperacillin Sod/Tazobactam (Sod 3.375 gm/ Sodium Chloride) 100 mls @ 200 mls/ hr IVPB 0400,1000,1600,2200 [facility] Last Admin: 04/03/18 17:02 Dose: 100 mls Sodium Chloride (Normal Saline 0.9%) 1,000 mls @ 50 mls/hr IV .Q20H [facility] Last Admin: 04/03/18 17:03 Dose: 1,000 mls Fentanyl Citrate 2,000 mcg/ (Sodium Chloride) 100 mls @ 0 mls/hr IV INF [facility]; Protocol Stop: 05/02/18 20:36 Fentanyl Citrate (Fentanyl Bolus) 250 mls @ 0 mls/hr IVPB PRN PRN PRN Reason: Breakthrough pain/agitation Stop: 05/02/18 20:36 Lactulose (Lactulose) 30 gm PO QID [facility] Last Admin: 04/03/18 17:03 Dose: 30 gm Lorazepam (Ativan) 2 mg SLOW IVP Q1H PRN PRN Reason: Breakthrough agitation Stop: 05/02/18 20:36 Methylprednisolone Sodium Succinate (Solu-Medrol) 20 mg IVP Q8HR [facility] Last Admin: 04/03/18 13:15 Dose: 20 mg Metoprolol Tartrate (Lopressor) 50 mg PO BID [facility] Last Admin: 04/03/18 09:33 Dose: 50 mg Miscellaneous Medication (Pharmacy To Dose) 1 each PO PRN PRN PRN Reason: Pharmacy to dose Morphine Sulfate (Morphine) 2 mg SLOW IVP Q1H PRN PRN Reason: BREAKTHROUGH PAIN/AGITATION Stop: 05/02/18 20:36 Discontinue Previous Narcotic Pain Medications And Benzodiazepines 1 each FS .ONE [facility] Stop: 05/02/18 20:36 Pantoprazole Sodium (Protonix) 40 mg IVP Q12HR [facility] Last Admin: 04/03/18 09:33 Dose: 40 mg Propofol (Diprivan) 1,000 mg IV INF PRN; Protocol PRN Reason: TO ACHIEVE GOAL RASS Stop: 05/02/18 20:36 Last Admin: 04/03/18 17:03 Dose: 1,000 mg Propofol (Diprivan Bolus) 20 mg IV Q5MIN PRN PRN Reason: BREAKTHROUGH AGITATION Stop: 05/02/18 20:36 Rifaximin (Xifaxan) 550 mg PO BID [facility] Last Admin: 04/03/18 09:33 Dose: 550 mg Sodium Chloride (Flush - Normal Saline) 10 ml IVF PRN PRN PRN Reason: Saline Flush Last Admin: 04/02/18 21:22 Dose: 10 ml
[2018-04-04] MEDS: Propofol 1,000 MG/100 ML VIAL IV PRN ×3 (03:11→23:30)
[2018-04-04] MEDS: Piperacillin/Tazobactam 3.375 GM in Sodium Chloride 0.9% 100 ML IVPB SCH ×2 (04:08→09:43)
[2018-04-04 04:22] LABS: Band 3 % (5-11); Hemoglobin 8.6 g/dL (14.0-18.0); Lymphocytes 9 % (21-51); MDiff Complete? YES; Mean Corpuscular HGB CONC 33.4 g/dL (32.0-36.0); Mean Corpuscular Hemoglobin 30.3 pg (27.0-31.0); Mean Corpuscular Volume 90.6 fL (78.0-98.0); Mean Platelet Volume 7.5 fL (7.4-10.4); Monocytes 4 % (0-10); Neutrophil 84 % (42-75); Platelet Count 232 thou/uL (130-400); RBC Distribution Width 15.5 % (11.5-14.5); Red Blood Cell (RBC) Count 2.83 mill/uL (4.70-6.10); White Blood Cell (WBC) Count 6.4 thou/uL (4.8-10.8)
[2018-04-04 04:38] LABS: Anion Gap 23 mmol/L (10-20); BUN (Urea Nitrogen) 60 mg/dL (8.4-25.7); Calc. Creatinine Clearance 7 mL/min (70-130); Calcium 9.4 mg/dL (7.8-10.44); Carbon Dioxide 21 mmol/L (23-31); Chloride 103 mmol/L (98-107); Estimated GFR-MDRD 8; Glucose 118 mg/dL (80-115); Potassium 5.2 mmol/L (3.5-5.1); Sodium 142 mmol/L (136-145)
[2018-04-04 07:03] LABS: Actual Bicarbonate (HCO3a) 21.6 mEq/L (22-28); Base Excess (BEa) -1.4 mEq/L (-2.0 to +3.0); CO2 Tension 28.5 mmHg (35.0-45.0); Hemoglobin (Hb) 6.9 g/dL (14.0-18.0); O2 Tension (PaO2) 72.1 mmHg (> 80.0)
[2018-04-04 07:04] LABS: ALV-art Gradient 177.475 (0-20); Potassium - ABG Lab 4.9 mmol/L (3.70-5.30); Puncture Site ALINE
--- NOTE | 2018-04-04 09:00 | RAD ---
ONE VIEW CHEST: HISTORY: Respiratory distress. Ventilated patient. COMPARISON: 04/03/18. FINDINGS: Portable semiupright chest demonstrates a stable endotracheal tube, nasogastric tube, and stent proje cting over the left hemithorax. Stable changes in the lung parenchyma. Stable cardiomegaly. Persistent opacification of the left hemidiaphragm. IMPRESSION: No significant interval change. POS: [facility]
[2018-04-04] MEDS: Amlodipine 10 MG TAB PO SCH (09:41)
[2018-04-04] MEDS: Cinacalcet HCl 30 MG TAB PO SCH ×2 (09:42→20:35)
[2018-04-04] MEDS: Aspirin 81 mg Enteric Coated Tablet PO SCH (09:42)
[2018-04-04] MEDS: Rifaximin 550 MG TAB PO SCH ×2 (09:43→21:04)
[2018-04-04] MEDS: Pantoprazole 40 MG VIAL IVP SCH ×2 (09:43→22:03)
[2018-04-04] MEDS: Metoprolol Tartrate 50 MG TAB PO SCH ×2 (09:43→21:04)
[2018-04-04] MEDS: Sodium Chloride 0.9% 1,000 ML IV SCH (09:44)
[2018-04-04] MEDS ORDERED: Piperacillin/Tazobactam 2.25 GM in Sodium Chloride 0.9% 100 ML IVPB SCH (10:00)
--- NOTE | 2018-04-04 10:56 | PRG ---
DATE OF SERVICE: 04/04/2018 SUBJECTIVE: The patient is still on the ventilator, tolerating tube feedings without any difficulty. OBJECTIVE: VITAL SIGNS: Temperature 99.2, pulse 108, respiratory rate 22, blood pressure 127/82. CHEST: Clear. CARDIOVASCULAR: Regular rate and rhythm. ABDOMEN: Protuberant, soft. Bowel sounds present. LABORATORY DATA: Shows a white blood cell count of 6.4, hemoglobin 8.6, hematocrit 25.7. Chemistry showed potassium 5.2, CO2 21, BUN 60, creatinine 8.52, glucose 118. Chest x-ray showed no significant interval change. ASSESSMENT: 1. Cirrhosis - stable. 2. Ascites - stable. 3. Respiratory failure. 4. Altered mental status. RECOMMENDATIONS: 1. Continue tube feedings. 2. Paracentesis as needed for increasing abdominal distention.
--- NOTE | 2018-04-04 12:43 | PRG ---
DATE OF SERVICE: 04/04/2018 SUBJECTIVE: A 67-year-old gentleman being seen for end-stage renal disease. The patient remains int ubated. PHYSICAL EXAMINATION: GENERAL: Patient is resting. VITAL SIGNS: Afebrile, pulse 79, breathing at 16, blood pressure 133/87. GENERAL APPEARANCE AND MENTAL STATUS: Fair. HEAD/NECK: Normocephalic. Atraumatic. EYES: EOMI. No deformity. EARS: Clear. No ulcers. NOSE: Intact. No lesions. MOUTH: Clear. No discharge. THROAT: Clear. No exudate. LUNGS: Clear. No crackles. CARDIAC: S1, S2. No rub. ABDOMEN: Benign. BS+. GENITALIA/RECTUM: Rosario absent. BACK/EXTREMITIES: Edema 0+ Ulcer-. NEUROLOGICAL: Alert and motor intact. SKIN: Rash- Bruise- LYMPHATICS: Edema- Ulcer-. LABORATORY DATA: Show hemoglobin 8.6, potassium 5.2. ASSESSMENT AND RECOMMENDATIONS: 1. Stage 6 chronic kidney disease. We will plan dialysis. 2. Uremia, we will plan dialysis. 3. Cirrhosis. Management per GI. Overall, prognosis is poor.
[2018-04-04] MEDS: Diltiazem 125 MG in Sodium Chloride 0.9% 100 ML IVPB SCH (14:22)
--- NOTE | 2018-04-04 16:41 | PDOC.PN ---
- Subjective Encounter Start Date: 04/04/18 Encounter Start Time: 11:20 Subjective: pt intubated - Objective Resuscitation Status: Resuscitation Status FULL:Full Resuscitation Vital Signs & Weight: Vital Signs (12 hours) Temp Pulse Resp BP Pulse Ox 04/04/18 14:39 119 H 137/89 04/04/18 14:36 124 H 25 H 96 04/04/18 10:16 108 H 127/82 04/04/18 10:14 108 H 22 H 97 04/04/18 10:00 22 H 04/04/18 09:41 108 H 136/87 04/04/18 08:00 99.2 F 110 H 25 H 99 04/04/18 06:35 108 H 125/80 04/04/18 06:33 108 H 28 H 97 04/04/18 06:00 22 H Weight Admit Weight 130 lb Weight 136 lb 14.513 oz Most Recent Monitor Data Heart Rate from ECG 114 NIBP 161/99 NIBP BP-Mean 107 Respiration from ECG 31 SpO2 95 I&O: 04/03/18 04/04/18 04/05/18 06:59 06:59 06:59 Intake Total 2191 2617.9 60 Output Total 650 Balance 1541 2617.9 60 Result Diagrams: 04/04/18 03:16 04/04/18 03:16 Phys Exam - Physical Examination Neck: no nodes, no JVD, supple, full ROM mild rhonchi all over Cardiovascular: RRR, no significant murmur, no rub, gallop, irregular he does have distended veins on left chest area, his left arm is swollen good bruit to his fistula Gastrointestinal: soft, positive bowel sounds mild distention left arm Dx/Plan (1) SOB (shortness of breath) Code(s): R06.02 - SHORTNESS OF BREATH Status: Acute (2) Cirrhosis Code(s): K74.60 - UNSPECIFIED CIRRHOSIS OF LIVER Status: Acute (3) ESRD (end stage renal disease) on dialysis Code(s): N18.6 - END STAGE RENAL DISEASE; Z99.2 - DEPENDENCE ON RENAL DIALYSIS Status: Chronic (4) Hyperkalemia Code(s): E87.5 - HYPERKALEMIA Status: Acute - Plan pt intuabed, per nursing tried to wean him off sedation but he got very -: agitated. will continue abx for now. palliative care consulted -: spoke with nephro for left arm swelling. * . Review of Systems - Review of Systems Other: unable to determine - Medications/Allergies Allergies/Adverse Reactions: Allergies Allergy/AdvReac Type Severity Reaction Status Date / Time No Known Allergies Allergy Verified 04/01/18 16:23 Medications: Current Medications Acetaminophen (Tylenol) 650 mg PO Q4H PRN PRN Reason: Headache/Fever or Pain Albuterol Sulfate (Albuterol Sulfate) 1.25 mg NEB Q1H PRN PRN Reason: Dyspnea/Wheezing/SOB Albuterol/Ipratropium (Duoneb) 3 ml NEB [id number] [facility] Last Admin: 04/04/18 14:36 Dose: 3 ml Amlodipine Besylate (Norvasc) 10 mg PO DAILY [facility] Last Admin: 04/04/18 09:41 Dose: 10 mg Aspirin (Ecotrin) 81 mg PO DAILY [facility] Last Admin: 04/04/18 09:42 Dose: 81 mg Cinacalcet (Sensipar) 15 mg PO BID [facility] Last Admin: 04/04/18 09:42 Dose: 15 mg Diltiazem HCl 125 mg/ Sodium (Chloride) 125 mls @ 5 mls/hr IVPB INF [facility]; Protocol Last Admin: 04/04/18 14:22 Dose: 125 mls Sodium Chloride (Normal Saline 0.9%) 1,000 mls @ 50 mls/hr IV .Q20H [facility] Last Admin: 04/04/18 09:44 Dose: 1,000 mls Fentanyl Citrate 2,000 mcg/ (Sodium Chloride) 100 mls @ 0 mls/hr IV INF [facility]; Protocol Stop: 05/02/18 20:36 Fentanyl Citrate (Fentanyl Bolus) 250 mls @ 0 mls/hr IVPB PRN PRN PRN Reason: Breakthrough pain/agitation Stop: 05/02/18 20:36 Piperacillin Sod/Tazobactam (Sod 2.25 gm/ Sodium Chloride) 100 mls @ 200 mls/ hr IVPB 0200,1000,1800 [facility] Lactulose (Lactulose) 30 gm PO QID [facility] Last Admin: 04/04/18 13:59 Dose: Not Given Lorazepam (Ativan) 2 mg SLOW IVP Q1H PRN PRN Reason: Breakthrough agitation Stop: 05/02/18 20:36 Methylprednisolone Sodium Succinate (Solu-Medrol) 20 mg IVP Q8HR [facility] Last Admin: 04/04/18 14:22 Dose: 20 mg Metoprolol Tartrate (Lopressor) 50 mg PO BID [facility] Last Admin: 04/04/18 09:43 Dose: 50 mg Miscellaneous Medication (Pharmacy To Dose) 1 each PO PRN PRN PRN Reason: Pharmacy to dose Morphine Sulfate (Morphine) 2 mg SLOW IVP Q1H PRN PRN Reason: BREAKTHROUGH PAIN/AGITATION Stop: 05/02/18 20:36 Discontinue Previous Narcotic Pain Medications And Benzodiazepines 1 each FS .ONE [facility] Stop: 05/02/18 20:36 Pantoprazole Sodium (Protonix) 40 mg IVP Q12HR [facility] Last Admin: 04/04/18 09:43 Dose: 40 mg Propofol (Diprivan) 1,000 mg IV INF PRN; Protocol PRN Reason: TO ACHIEVE GOAL RASS Stop: 05/02/18 20:36 Last Admin: 04/04/18 14:28 Dose: 1,000 mg Propofol (Diprivan Bolus) 20 mg IV Q5MIN PRN PRN Reason: BREAKTHROUGH AGITATION Stop: 05/02/18 20:36 Rifaximin (Xifaxan) 550 mg PO BID [facility] Last Admin: 04/04/18 09:43 Dose: 550 mg Sodium Chloride (Flush - Normal Saline) 10 ml IVF PRN PRN PRN Reason: Saline Flush Last Admin: 04/03/18 21:07 Dose: 10 ml
--- NOTE | 2018-04-04 17:35 | PDOC.CTH ---
Cardiology Progress Note - Subjective He had to be intubated to protect his airway. - Objective Vital Signs Temp Pulse Resp BP Pulse Ox 04/04/18 16:00 98.2 F 25 H 04/04/18 14:39 119 H 137/89 04/04/18 14:36 124 H 25 H 96 04/04/18 14:00 27 H 04/04/18 12:00 99.5 F 23 H 04/04/18 10:16 108 H 127/82 04/04/18 10:14 108 H 22 H 97 04/04/18 10:00 22 H 04/04/18 09:41 108 H 136/87 04/04/18 08:00 99.2 F 110 H 25 H 99 04/04/18 06:35 108 H 125/80 04/04/18 06:33 108 H 28 H 97 04/04/18 06:00 22 H Admit Weight 130 lb Weight 136 lb 14.513 oz 04/03/18 04/04/18 04/05/18 06:59 06:59 06:59 Intake Total 2191 2617.9 60 Output Total 650 250 Balance 1541 2617.9 -190 - Physical Examination General/Neuro: other: (Intubated. ) Neck: no JVD present Lungs: unlabored respirations Heart: RRR Abdomen: other: (Decreased ascitc wave.) Extremities: other: (no edema.) - Telemetry Telemetry Rhythm: Aflutter HR 115 - Labs Result Diagrams: 04/04/18 03:16 04/04/18 03:16 Troponin/CKMB CK-MB (CK-2) 2.5 ng/mL (0-6.6) 04/01/18 07:26 Troponin I 0.098 ng/mL (< 0.028) H 04/01/18 12:26 - Assessment/Plan 1. Atrial flutter 2. Hep C Cirrhosis 3. AMS, likely from ammonia level. 4. Possible GI bleeding. 5. ESRD on HD PLAN: - Continue diltiazem drip for rate control. - On HD now, improved fluid status with less ascitis. His left arm and shoulder veins are much much less engorged than when he came in. - No anticoagulation as high risk for bleeding.
[2018-04-04] MEDS: Piperacillin/Tazobactam 2.25 GM in Sodium Chloride 0.9% 100 ML IVPB SCH (17:43)
--- NOTE | 2018-04-04 18:17 | PRG ---
DATE OF SERVICE: 04/04/2018 SUBJECTIVE: Haylee Molina has had sedation held. She is still not awake. OBJECTIVE: VITAL SIGNS: Heart rates 119-120, blood pressure 137/89, respiratory rates per mechanical ventilatio n. LUNGS: Clear anteriorly. HEART: Regular rhythm. ABDOMEN: Distended. EXTREMITIES: Without asymmetry. LABORATORY DATA: White count 6.4, hemoglobin 8.6, platelets 232. Sodium 142, potassium 5.2, chlorid e 103, bicarbonate 21, BUN 60, creatinine , glucose 118. PH 7.5, CO2 28, pO2 of 72. Chest radiograph shows no new infiltrates. She is hazy at the left base. IMPRESSION: 1. Respiratory failure secondary to altered mental status. 2. Probable chronic obstructive pulmonary disease based on my exam without matting. 3. Ascites secondary to chronic liver disease. 4. End-stage renal disease on dialysis. 5. Status post paracentesis, there is no culture reported. 6. Heme positive emesis and no signs of bleeding. PLAN: Continue supportive care. An ammonia level was rechecked today, is down to 39, so would hope we would see in a gradual improvement in his mental status in next 24-48 hours. I met with the vadim linares and answered all the questions. She is not weanable at this time. Critical care time 30 minutes.
[2018-04-05] MEDS: Piperacillin/Tazobactam 2.25 GM in Sodium Chloride 0.9% 100 ML IVPB SCH ×3 (02:28→17:20)
[2018-04-05 04:56] LABS: Anion Gap 19 mmol/L (10-20); BUN (Urea Nitrogen) 36 mg/dL (8.4-25.7); Calc. Creatinine Clearance 13 mL/min (70-130); Calcium 9.1 mg/dL (7.8-10.44); Carbon Dioxide 25 mmol/L (23-31); Chloride 99 mmol/L (98-107); Estimated GFR-MDRD 14; Glucose 125 mg/dL (80-115); Sodium 139 mmol/L (136-145)
[2018-04-05] MEDS: Sodium Chloride 0.9% 1,000 ML IV SCH (05:35)
[2018-04-05 05:37] LABS: Band 8 % (5-11); Hemoglobin 8.9 g/dL (14.0-18.0); Lymphocytes 8 % (21-51); MDiff Complete? YES; Mean Corpuscular HGB CONC 32.8 g/dL (32.0-36.0); Mean Corpuscular Hemoglobin 30.1 pg (27.0-31.0); Mean Corpuscular Volume 91.6 fL (78.0-98.0); Monocytes 8 % (0-10); Neutrophil 76 % (42-75); Platelet Count 300 thou/uL (130-400); RBC Distribution Width 15.3 % (11.5-14.5); Red Blood Cell (RBC) Count 2.95 mill/uL (4.70-6.10); White Blood Cell (WBC) Count 7.9 thou/uL (4.8-10.8)
[2018-04-05 07:07] LABS: ALV-art Gradient 102.775 (0-20); Actual Bicarbonate (HCO3a) 25.3 mEq/L (22-28); Base Excess (BEa) 2.6 mEq/L (-2.0 to +3.0); CO2 Tension 32.1 mmHg (35.0-45.0); Carboxyhemoglobin (COHb) 1.2 gm% (0.0-3.0); Hemoglobin (Hb) 9.2 g/dL (14.0-18.0); Puncture Site RRA; pH, Arterial 7.52 (7.35-7.45)
[2018-04-05] MEDS: Propofol 1,000 MG/100 ML VIAL IV PRN (08:35)
[2018-04-05] MEDS: Pantoprazole 40 MG VIAL IVP SCH ×2 (08:36→21:16)
[2018-04-05] MEDS: Cinacalcet HCl 30 MG TAB PO SCH ×2 (08:41→21:15)
[2018-04-05] MEDS: Metoprolol Tartrate 50 MG TAB PO SCH ×2 (08:41→21:16)
[2018-04-05] MEDS: Amlodipine 10 MG TAB PO SCH (08:41)
[2018-04-05] MEDS: Aspirin 81 mg Enteric Coated Tablet PO SCH (08:41)
[2018-04-05] MEDS: Rifaximin 550 MG TAB PO SCH ×2 (08:41→21:17)
--- NOTE | 2018-04-05 09:54 | RAD ---
PORTABLE SEMIUPRIGHT CHEST: History: 67-year-old male history of respiratory insufficiency. Comparison: 04-04-18 FINDINGS: NG tube and endotracheal tubes remain in place. The tip of the endotracheal tube is within several CM of the patti, unchanged from prior study. Monitor leads overlie the chest. Left sided innominate va scular stent. Again noted is cardiomegaly with bilateral mid and lower lung zone parenchymal changes being more confluent in the left lower lobe. IMPRESSION: Persistent cardiomegaly and bilateral vascular congestion and increased linear and interstitial lian ngs in the mid and left lower lung zones with more confluent opacity in the left lower chest, unchang ed from prior study. Continued short term follow up. POS: [facility]
[2018-04-05] MEDS: Diltiazem 125 MG in Sodium Chloride 0.9% 100 ML IVPB SCH (10:25)
--- NOTE | 2018-04-05 12:04 | PRG ---
DATE OF SERVICE: 04/05/2018 SUBJECTIVE: The patient is on the ventilator. He was not tolerating tube feedings and had 2 episode s of vomiting yesterday. His Diprivan was stopped earlier today and really has not woken up. OBJECTIVE: VITAL SIGNS: Pulse is 119, respiratory rate 15, blood pressure 111/74, temperature is 98.4. HEENT: Significant for orotracheal tube and oral gastric tube. CHEST: Clear. CARDIOVASCULAR: Regular rate and rhythm. ABDOMEN: Protuberant but soft. Liver is ballottable, bowel sounds are hypoactive. EXTREMITIES: Normal. LABORATORY DATA: Shows a white blood cell count of 7.9, hemoglobin of 8.9, hematocrit 27.0. Rfid Technician jodie show a BUN 36, creatinine 5.17. Ammonia from yesterday was 39. ASSESSMENT: 1. Cirrhosis - stable. 2. Ascites - stable. 3. Respiratory failure. 4. Altered mental status - this is not hepatic encephalopathy. 5. Intolerance of tube feedings. RECOMMENDATIONS: 1. Trial of metoclopramide. 2. Minimize narcotics. 3. Continue lactulose and Xifaxan.
[2018-04-05] MEDS: Metoclopramide HCl 10 MG/2 ML VIAL IVP SCH ×3 (12:51→23:53)
--- NOTE | 2018-04-05 18:11 | PDOC.CTH ---
Cardiology Progress Note - Subjective No new issues. He is starting to open eyes. On Precedex now. - Objective Vital Signs Temp Pulse Resp BP Pulse Ox 04/05/18 18:00 26 H 04/05/18 16:00 99.8 F H 20 04/05/18 14:11 112 H 99/58 L 04/05/18 14:10 121 H 19 95 04/05/18 14:00 24 H 04/05/18 12:00 99.4 F 20 04/05/18 10:54 109 H 113/75 04/05/18 10:52 109 H 18 97 04/05/18 10:00 20 04/05/18 08:41 108 H 119/80 04/05/18 08:00 99 F 118 H 25 H 97 04/05/18 06:34 108 H 119/80 04/05/18 06:32 108 H 15 97 Admit Weight 130 lb Weight 126 lb 5.198 oz 04/04/18 04/05/18 04/06/18 06:59 06:59 06:59 Intake Total 2617.9 1958.3 821 Output Total 600 250 Balance 2617.9 1358.3 571 - Physical Examination General/Neuro: other: (Sedated intubated. ) Neck: other: (JVD 15 cm H2O) Lungs: CTA Heart: other: (Irregular) Abdomen: other: (Mild ascitis.) Extremities: other: (no edema) - Telemetry Telemetry Rhythm: Aflutter variable block. - Labs Result Diagrams: 04/05/18 04:28 04/05/18 04:28 Troponin/CKMB CK-MB (CK-2) 2.5 ng/mL (0-6.6) 04/01/18 07:26 Troponin I 0.098 ng/mL (< 0.028) H 04/01/18 12:26 - Assessment/Plan 1. Atrial flutter 2. Hep C Cirrhosis 3. AMS 4. ESRD on HD PLAN: - Continue diltiazem drip for rate control at low dose. - On HD - No anticoagulation as high risk for bleeding due to Hep C cirrhosis. - Will switch rate control strategy to Oral once PO tolerated.
--- NOTE | 2018-04-05 18:29 | PRG ---
DATE OF SERVICE: 04/05/2018 SUBJECTIVE: A 67-year-old gentleman being seen for end-stage renal disease. The patient tolerated di alysis well and remains unresponsive. PHYSICAL EXAMINATION: GENERAL APPEARANCE: Patient is resting. VITAL SIGNS: Afebrile, pulse 70, breathing at 16, blood pressure 93/56. HEAD/NECK: Normocephalic. Atraumatic. EYES: EOMI. No deformity. EARS: Clear. No ulcers. NOSE: Intact. No lesions. MOUTH: Clear. No discharge. THROAT: Clear. No exudate. LUNGS: Clear. No crackles. CARDIAC: S1, S2. No rub. ABDOMEN: Benign. BS+. GENITALIA/RECTUM: Rosario absent. BACK/EXTREMITIES: Edema 0+ Ulcer- NEUROLOGICAL: Alert and motor intact. SKIN: Rash- Bruise- LYMPHATICS: Edema- Ulcer- LABORATORY DATA: Show hemoglobin 8.9, creatinine 5.1, potassium 4. ASSESSMENT: 1. Stage 6 chronic kidney disease. We will plan dialysis as needed. 2. Hypertension, stable. 3. Anemia, stable. 4. Hyperkalemia, stable. No indication for dialysis today.
--- NOTE | 2018-04-05 20:48 | PDOC.PN ---
- Subjective Encounter Start Date: 04/05/18 Encounter Start Time: 18:20 Subjective: f/u for acute resp failure on mech vent minimally responsive. Receiving -: HD due to ESRD. - Objective Resuscitation Status: Resuscitation Status FULL:Full Resuscitation MAR Reviewed: Yes Vital Signs & Weight: Vital Signs (12 hours) Temp Pulse Resp BP Pulse Ox 04/05/18 20:02 103 H 95/60 04/05/18 18:48 90 20 97 04/05/18 18:00 26 H 04/05/18 16:00 99.8 F H 20 04/05/18 14:11 112 H 99/58 L 04/05/18 14:10 121 H 19 95 04/05/18 14:00 24 H 04/05/18 12:00 99.4 F 20 04/05/18 10:54 109 H 113/75 04/05/18 10:52 109 H 18 97 04/05/18 10:00 20 Weight Admit Weight 130 lb Weight 126 lb 5.198 oz Most Recent Monitor Data Heart Rate from ECG 85 NIBP 96/60 NIBP BP-Mean 72 Respiration from ECG 18 SpO2 94 I&O: 04/04/18 04/05/18 04/06/18 06:59 06:59 06:59 Intake Total 2617.9 1958.3 821 Output Total 600 250 Balance 2617.9 1358.3 571 Result Diagrams: 04/05/18 04:28 04/05/18 04:28 Additional Labs: Laboratory Tests 04/02/18 04/02/18 04/02/18 05:13 12:11 18:49 Hgb 9.0 L 8.9 L Potassium 6.0 H Creatinine 9.70 H Ammonia 04/03/18 04/03/18 04/04/18 04:10 04:10 03:16 Hgb 8.2 L Potassium 4.4 5.2 H Creatinine 7.06 H 8.52 H Ammonia 04/04/18 04/04/18 03:16 10:51 Hgb 8.6 L Potassium Creatinine Ammonia 39 Radiology Reviewed by me: Yes (PCXR - pulm edema L>R) EKG Reviewed by me: Yes (Tele - A-flutter with variable block) Phys Exam - Physical Examination sedate on mech vent ETT in place HEENT: sclera anicteric, oral pharynx no lesions Neck: no nodes, no JVD, supple diminished in bases, basilar crackles S1, S2 Cardiovascular: no significant murmur, no rub, irregular mild distention Gastrointestinal: soft, non-tender, positive bowel sounds Musculoskeletal: no edema, pulses present Skin: no rash, normal turgor, cap refill <2 seconds Dx/Plan (1) Acute respiratory failure with hypoxia Code(s): J96.01 - ACUTE RESPIRATORY FAILURE WITH HYPOXIA Status: Acute Comment: Continue SIMV with FIO2 30%, wean as clinically indicated (2) Hyperkalemia Code(s): E87.5 - HYPERKALEMIA Status: Acute Comment: Improved and resolving with HD, serial K+ monitoring (3) COPD exacerbation Code(s): J44.1 - CHRONIC OBSTRUCTIVE PULMONARY DISEASE W (ACUTE) EXACERBATION Status: Acute Comment: Continue SIMV, Duonebs, Solumedrol, Zosyn (4) ESRD (end stage renal disease) on dialysis Code(s): N18.6 - END STAGE RENAL DISEASE; Z99.2 - DEPENDENCE ON RENAL DIALYSIS Status: Chronic Comment: HD per Renal service (5) Cirrhosis Code(s): K74.60 - UNSPECIFIED CIRRHOSIS OF LIVER Status: Chronic Qualifiers: Hepatic cirrhosis type: unspecified hepatic cirrhosis Comment: Continue Xifaxan, Lactulose (6) Atrial flutter with rapid ventricular response Code(s): I48.92 - UNSPECIFIED ATRIAL FLUTTER Status: Acute Comment: Rate improved, continue Diltiazem gtt - Plan continue antibiotics, transition social worker, respiratory therapy, DVT proph w/SCDs continue critical support -: Wean off mech ventilation as clinically indicated -: Continue Solumedrol, Duonebs, Zosyn -: Continue Lactulose and Xifaxan -: AM lab: BMP, CBC * .
--- NOTE | 2018-04-05 23:56 | PRG ---
DATE OF SERVICE: 04/05/2018 He was awake, but he was sedated last night. I have discontinued all sedatives except Precedex. PHYSICAL EXAMINATION: VITAL SIGNS: Have been stable. LUNGS: Clear. HEART: Regular rhythm. ABDOMEN: Soft. EXTREMITIES: Without asymmetry. LABORATORY DATA: White count 7.9, hemoglobin 8.9, platelets 300,000. Electrolytes are normal. Creatinine is 5.17. The pH is 7.53, CO2 of 32, pO2 71. Chest radiograph is essentially unchanged. IMPRESSION: 1. Respiratory failure secondary to altered mental status, hepatic encephalopathy and ascites as wel l as COPD by exam. There is no history of PFTs in the past. The daughter 2 days ago related k now much about him. 2. End-stage renal disease. 3. Cirrhosis. 4. Status post paracentesis, was not suggestive of an infectious process. 5. Atrial flutter. PLAN: Continue supportive care. If awaken on just Precedex and we will consider extubation in 24-48 hours.
[2018-04-06] MEDS: Piperacillin/Tazobactam 2.25 GM in Sodium Chloride 0.9% 100 ML IVPB SCH ×3 (01:39→17:30)
[2018-04-06 03:52] LABS: Hemoglobin 8.4 g/dL (14.0-18.0); Mean Corpuscular HGB CONC 32.8 g/dL (32.0-36.0); Mean Corpuscular Volume 91.5 fL (78.0-98.0); Mean Platelet Volume 7.7 fL (7.4-10.4); Platelet Count 250 thou/uL (130-400); RBC Distribution Width 15.4 % (11.5-14.5)
[2018-04-06 03:53] LABS: Band 1 % (5-11); Lymphocytes 6 % (21-51); MDiff Complete? YES; Monocytes 4 % (0-10); Neutrophil 89 % (42-75); PLT Morphology Comment Appears Adequate
[2018-04-06 04:02] LABS: Anion Gap 20 mmol/L (10-20); BUN (Urea Nitrogen) 55 mg/dL (8.4-25.7); Calc. Creatinine Clearance 9 mL/min (70-130); Calcium 8.5 mg/dL (7.8-10.44); Carbon Dioxide 22 mmol/L (23-31); Chloride 100 mmol/L (98-107); Estimated GFR-MDRD 11; Glucose 121 mg/dL (80-115); Sodium 138 mmol/L (136-145)
[2018-04-06] MEDS: Metoclopramide HCl 10 MG/2 ML VIAL IVP SCH ×4 (06:08→23:19)
[2018-04-06] MEDS: Sodium Chloride 0.9% 1,000 ML IV SCH (06:09)
[2018-04-06 06:46] LABS: Actual Bicarbonate (HCO3a) 23.1 mEq/L (22-28); Base Excess (BEa) -0.1 mEq/L (-2.0 to +3.0); CO2 Tension 31.8 mmHg (35.0-45.0); O2 Tension (PaO2) 54.5 mmHg (> 80.0); pH, Arterial 7.48 (7.35-7.45)
[2018-04-06 06:47] LABS: Carboxyhemoglobin (COHb) 1.6 gm% (0.0-3.0); Hemoglobin (Hb) 9.1 g/dL (14.0-18.0); Potassium - ABG Lab 3.9 mmol/L (3.70-5.30); Puncture Site RRA
[2018-04-06] MEDS: Amlodipine 10 MG TAB PO SCH (09:05)
[2018-04-06] MEDS: Pantoprazole 40 MG VIAL IVP SCH ×2 (09:06→20:38)
[2018-04-06] MEDS: Rifaximin 550 MG TAB PO SCH ×2 (09:07→20:38)
[2018-04-06] MEDS: Metoprolol Tartrate 50 MG TAB PO SCH ×2 (09:07→20:38)
[2018-04-06] MEDS: Cinacalcet HCl 30 MG TAB PO SCH ×2 (09:07→20:37)
[2018-04-06] MEDS: Aspirin 81 mg Enteric Coated Tablet PO SCH (09:08)
--- NOTE | 2018-04-06 10:10 | RAD ---
CHEST 1 VIEW: HISTORY: Dyspnea. Followup. COMPARISON: 04/05/18. FINDINGS: Cardiac silhouette magnified, enlarged, and partially obscured by left basilar infiltrate. Mediastin um remains shifted leftward slightly. Endotracheal catheter tip remains just above the level of the patti. nasogastric tube remains in place. Parenchymal scarring throughout each lung is stable. IMPRESSION: Left basilar infiltrate and other findings are stable. POS: PA[facility]
--- NOTE | 2018-04-06 10:41 | PRG ---
DATE OF SERVICE: 04/06/2018 SUBJECTIVE: A 67-year-old gentleman being seen for end-stage renal disease. The patient is resting. PHYSICAL EXAMINATION: GENERAL APPEARANCE: Patient is resting. VITAL SIGNS: Afebrile, pulse 74, breathing 16, blood pressure 98/61. HEAD/NECK: Normocephalic. Atraumatic. EYES: EOMI. No deformity. EARS: Clear. No ulcers. NOSE: Intact. No lesions. MOUTH: Clear. No discharge. THROAT: Clear. No exudate. LUNGS: Clear. No crackles. CARDIAC: S1, S2. No rub. ABDOMEN: Benign. BS+. GENITALIA/RECTUM: Rosario absent. BACK/EXTREMITIES: Edema 0+ Ulcer- NEUROLOGICAL: The patient is resting. SKIN: Rash- Bruise- LYMPHATICS: Edema- Ulcer- LABORATORY DATA: Show hemoglobin 8.4, potassium 4. ASSESSMENT AND PLAN: 1. Stage 6 chronic kidney disease. No indication for dialysis. 2. Hypertension, stable. 3. Anemia, stable. 4. Medications based on glomerular filtration rate are appropriate.
--- NOTE | 2018-04-06 12:12 | PRG ---
DATE OF SERVICE: 04/06/2018 The patient is still on a ventilator. He opens his eyes, does not seem to grimace with palpation of his abdomen. He is now being fed by tube. OBJECTIVE: VITAL SIGNS: Temperature is 98.1, pulse 59, respiratory rate 13, blood pressure 105/60. HEENT: Significant for endotracheal and orotracheal tube. CHEST: Clear. CARDIOVASCULAR: Regular rate and rhythm. ABDOMEN: Protuberant, but very soft and nontender. Bowel sounds are hypoactive. EXTREMITIES: Normal. LABORATORY DATA: Shows a white blood cell count 7.0, hemoglobin 8.4, hematocrit 25.6. Chemistries s how a CO2 22, BUN 55, creatinine 4.66, glucose 121. ASSESSMENT: 1. Cirrhosis - stable. 2. Ascites. 3. Ileus. 4. End-stage renal disease. RECOMMENDATIONS: 1. Clamp NG. 2. Hopefully, we will start a trial of tube feeding. 3. Continue metoclopramide.
--- NOTE | 2018-04-06 16:03 | PDOC.PN ---
- Subjective Encounter Start Date: 04/06/18 Encounter Start Time: 15:00 Subjective: f/u [facility] More alert this -: pm and opens eyes and tracks to name. + BM in last 24h - Objective Resuscitation Status: Resuscitation Status FULL:Full Resuscitation MAR Reviewed: Yes Vital Signs & Weight: Vital Signs (12 hours) Temp Pulse Resp BP Pulse Ox 04/06/18 14:34 89 112/75 04/06/18 14:33 89 18 99 04/06/18 14:00 20 04/06/18 12:00 98.1 F 04/06/18 10:19 59 L 105/60 04/06/18 10:18 59 L 13 99 04/06/18 09:05 94 98/61 04/06/18 08:00 97.7 F 04/06/18 06:24 94 98/61 04/06/18 06:23 96 13 97 04/06/18 06:00 16 Weight Admit Weight 130 lb Weight 132 lb 11.492 oz Most Recent Monitor Data Heart Rate from ECG 79 NIBP 112/81 NIBP BP-Mean 91 Respiration from ECG 30 SpO2 100 I&O: 04/05/18 04/06/18 04/07/18 06:59 06:59 06:59 Intake Total 1958.3 1687 197 Output Total 600 250 Balance 1358.3 1437 197 Result Diagrams: 04/06/18 03:15 04/06/18 03:15 Additional Labs: Laboratory Tests 04/02/18 04/02/18 04/02/18 05:13 12:11 18:49 Hgb 9.0 L 8.9 L Potassium 6.0 H Creatinine 9.70 H Ammonia 04/03/18 04/03/18 04/04/18 04:10 04:10 03:16 Hgb 8.2 L Potassium 4.4 5.2 H Creatinine 7.06 H 8.52 H Ammonia 04/04/18 04/04/18 03:16 10:51 Hgb 8.6 L Potassium Creatinine Ammonia 39 Radiology Reviewed by me: Yes (PCXR - L basilar infiltrate) EKG Reviewed by me: Yes (Tele - A-fib in 90's) Phys Exam - Physical Examination opens eyes to name, turns head and tracks with eyes briefly ETT in place HEENT: PERRLA, sclera anicteric, oral pharynx no lesions Neck: no nodes, no JVD, supple, full ROM diminished in bases Respiratory: no wheezing S1, S2 Cardiovascular: no significant murmur, no rub, irregular tympanic Gastrointestinal: soft, non-tender, positive bowel sounds Musculoskeletal: no edema, pulses present random movements of all extremities Neurological: moves all 4 limbs Skin: no rash, normal turgor, cap refill <2 seconds Dx/Plan (1) Acute respiratory failure with hypoxia Code(s): J96.01 - ACUTE RESPIRATORY FAILURE WITH HYPOXIA Status: Acute Comment: Continue SIMV with FIO2 30%, wean as clinically indicated, Duonebs, Zosyn (2) Hyperkalemia Code(s): E87.5 - HYPERKALEMIA Status: Acute Comment: Improved and resolving with HD, serial K+ monitoring (3) COPD exacerbation Code(s): J44.1 - CHRONIC OBSTRUCTIVE PULMONARY DISEASE W (ACUTE) EXACERBATION Status: Acute Comment: Continue SIMV, Duonebs, Solumedrol, Zosyn (4) ESRD (end stage renal disease) on dialysis Code(s): N18.6 - END STAGE RENAL DISEASE; Z99.2 - DEPENDENCE ON RENAL DIALYSIS Status: Chronic Comment: HD per Renal service (5) Cirrhosis Code(s): K74.60 - UNSPECIFIED CIRRHOSIS OF LIVER Status: Chronic Qualifiers: Hepatic cirrhosis type: unspecified hepatic cirrhosis Comment: Continue Xifaxan, Lactulose (6) Atrial flutter with rapid ventricular response Code(s): I48.92 - UNSPECIFIED ATRIAL FLUTTER Status: Acute Comment: Rate improved, continue Diltiazem gtt - Plan continue antibiotics, transition social worker, respiratory therapy, DVT proph w/SCDs Continue pulm supportive measures and wean as clinically indicated from -: [facility] vent -: HD per Renal service -: Continue Diltiazem gtt for rate control -: Continue Solumedrol * AM lab: BMP, CBC
--- NOTE | 2018-04-06 17:38 | PDOC.CTH ---
Cardiology Progress Note - Subjective No new issues. Remains intubated. - Objective Vital Signs Temp Pulse Resp BP Pulse Ox 04/06/18 16:00 98.5 F 19 04/06/18 14:34 89 112/75 04/06/18 14:33 89 18 99 04/06/18 14:00 20 04/06/18 12:00 98.1 F 16 04/06/18 10:19 59 L 105/60 04/06/18 10:18 59 L 13 99 04/06/18 10:00 10 L 04/06/18 09:05 94 98/61 04/06/18 08:00 97.7 F 122 H 13 100 04/06/18 06:24 94 98/61 04/06/18 06:23 96 13 97 04/06/18 06:00 16 Admit Weight 130 lb Weight 132 lb 11.492 oz 04/05/18 04/06/18 04/07/18 06:59 06:59 06:59 Intake Total 1958.3 1687 197 Output Total 600 250 Balance 1358.3 1437 197 - Physical Examination General/Neuro: alert & oriented x3, NAD Neck: no JVD present Lungs: CTA, unlabored respirations Heart: RRR Abdomen: NT/ND Extremities: other: (no edema.) - Telemetry Telemetry Rhythm: Aflutter variable AV cond, HR 80's - Labs Result Diagrams: 04/06/18 03:15 04/06/18 03:15 Troponin/CKMB CK-MB (CK-2) 2.5 ng/mL (0-6.6) 04/01/18 07:26 Troponin I 0.098 ng/mL (< 0.028) H 04/01/18 12:26 - Assessment/Plan 1. Atrial flutter 2. Hep C Cirrhosis 3. AMS 4. ESRD on HD PLAN: - Continue diltiazem drip for rate control at low dose. - On HD - No anticoagulation as high risk for bleeding due to Hep C cirrhosis. - Will switch rate control strategy to Oral once PO tolerated.
--- NOTE | 2018-04-06 18:24 | PRG ---
DATE OF SERVICE: 04/06/2018 SUBJECTIVE: Haylee Molina is more alert today. He will follow commands. He is afebrile, respir atory rates in the teens, heart rates in the 90s, blood pressure 106/75. Intake and outputs, positive 1437. OBJECTIVE: LUNGS: Clear anteriorly. HEART: Regular rhythm. ABDOMEN: Soft. EXTREMITIES: Without asymmetry. LABORATORY DATA: White count 7, hemoglobin 8.4, platelets 250. Sodium 138, potassium 4, chloride 10 0, bicarbonate 22, BUN 55, creatinine 6.44. IMPRESSION: 1. Respiratory failure, status post intubation for altered mental status. 2. Hepatic encephalopathy, resolving. 3. Cirrhosis. 4. End-stage renal disease. 5. Ascites associated with cirrhosis. PLAN: Continue to slowly wean from mechanical ventilation. He did not tolerate tube feeds yesterday, so his NG tube was clamped. We will continue to follow. Critical care time, 30 minutes.
[2018-04-07] MEDS: Sodium Chloride 0.9% 1,000 ML IV SCH (03:21)
[2018-04-07] MEDS: Piperacillin/Tazobactam 2.25 GM in Sodium Chloride 0.9% 100 ML IVPB SCH ×3 (03:28→18:06)
[2018-04-07] MEDS: Metoclopramide HCl 10 MG/2 ML VIAL IVP SCH ×4 (04:57→23:07)
[2018-04-07 06:02] LABS: Anion Gap 22 mmol/L (10-20); BUN (Urea Nitrogen) 76 mg/dL (8.4-25.7); Calc. Creatinine Clearance 8 mL/min (70-130); Calcium 8.1 mg/dL (7.8-10.44); Carbon Dioxide 19 mmol/L (23-31); Chloride 102 mmol/L (98-107); Estimated GFR-MDRD 9; Glucose 113 mg/dL (80-115); Potassium 3.7 mmol/L (3.5-5.1); Sodium 139 mmol/L (136-145)
[2018-04-07 06:07] LABS: Band 1 % (5-11); Hemoglobin 8.6 g/dL (14.0-18.0); Hypochromia SLIGHT = 6-15 cells (100X) (0-5/hpf); Lymphocytes 1 % (21-51); MDiff Complete? YES; Mean Corpuscular HGB CONC 33.1 g/dL (32.0-36.0); Mean Corpuscular Hemoglobin 30.1 pg (27.0-31.0); Mean Corpuscular Volume 90.9 fL (78.0-98.0); Mean Platelet Volume 7.8 fL (7.4-10.4); Monocytes 1 % (0-10); Neutrophil 97 % (42-75); PLT Morphology Comment Appears Adequate; Platelet Count 274 thou/uL (130-400); RBC Distribution Width 15.7 % (11.5-14.5); Red Blood Cell (RBC) Count 2.85 mill/uL (4.70-6.10); White Blood Cell (WBC) Count 10.1 thou/uL (4.8-10.8)
[2018-04-07 07:29] LABS: Actual Bicarbonate (HCO3a) 18.7 mEq/L (22-28); Base Excess (BEa) -4.5 mEq/L (-2.0 to +3.0); CO2 Tension 27.5 mmHg (35.0-45.0); Carboxyhemoglobin (COHb) 0.9 gm% (0.0-3.0); Hemoglobin (Hb) 8.9 g/dL (14.0-18.0); O2 Tension (PaO2) 76.7 mmHg (> 80.0); pH, Arterial 7.45 (7.35-7.45)
[2018-04-07 07:30] LABS: ALV-art Gradient 101.325 (0-20); Calcium, Ionized 1.04 mmol/L (1.12-1.30); Puncture Site RR
[2018-04-07] MEDS ORDERED: Sodium Chloride 0.9% 1,000 ML IV SCH (09:06)
--- NOTE | 2018-04-07 09:07 | PRG ---
DATE OF SERVICE: 04/07/2018 SUBJECTIVE: This is a 67-year-old gentleman being seen for end-stage renal disease. The patient rem ains intubated. PHYSICAL EXAMINATION: GENERAL: Patient is resting. VITAL SIGNS: Afebrile, pulse 69, breathing 16, blood pressure 135/70. OBJECTIVE: See above. Awake, alert, in no acute distress. GENERAL APPEARANCE AND MENTAL STATUS: Fair. HEAD/NECK: Normocephalic. Atraumatic. EYES: EOMI. No deformity. EARS: Clear. No ulcers. NOSE: Intact. No lesions. MOUTH: Clear. No discharge. THROAT: Clear. No exudate. LUNGS: Clear. No crackles. CARDIAC: S1, S2. No rub. ABDOMEN: Benign. BS+. GENITALIA/RECTUM: Rosario absent. BACK/EXTREMITIES: Edema 0+ Ulcer- NEUROLOGICAL: The patient is resting. SKIN: Rash- Bruise- LYMPHATICS: Edema- Ulcer- LABORATORY: Hemoglobin 8.6, potassium 3.6. ASSESSMENT AND RECOMMENDATIONS: 1. Stage 6 chronic kidney disease, plan dialysis. 2. Hypertension, stable. 3. Anemia, stable. 4. Medication based on glomerular filtration rate are appropriate. 5. ____.
--- NOTE | 2018-04-07 09:13 | RAD ---
CHEST 1 VIEW: HISTORY: Ventilated patient. COMPARISON: Radiograph prior day. FINDINGS: Endotracheal tube tip is in place with tip above the patti 3 cm. Left subclavian vascular stent is in place. Large left upper lobe bullae. Moderate edema. Layering left effusion. Left retrocardiac opacity. IMPRESSION: 1. Increase in reticulonodular opacity suggesting increasing edema. 2. Left basilar opacity concerning for infection/aspiration. POS: [facility]
[2018-04-07] MEDS: Cinacalcet HCl 30 MG TAB PO SCH ×2 (10:17→22:42)
[2018-04-07] MEDS: Amlodipine 10 MG TAB PO SCH (10:18)
[2018-04-07] MEDS: Aspirin 81 mg Enteric Coated Tablet PO SCH (10:18)
[2018-04-07] MEDS: Metoprolol Tartrate 50 MG TAB PO SCH ×2 (10:19→22:42)
[2018-04-07] MEDS: Pantoprazole 40 MG VIAL IVP SCH ×2 (10:19→22:41)
[2018-04-07] MEDS: Rifaximin 550 MG TAB PO SCH ×2 (10:42→22:42)
--- NOTE | 2018-04-07 12:54 | PDOC.PN ---
- Subjective Encounter Start Date: 04/07/18 Encounter Start Time: 11:05 Subjective: f/u for resp failure on mech vent currently receiving HD. No new events -: overnight. - Objective Resuscitation Status: Resuscitation Status FULL:Full Resuscitation MAR Reviewed: Yes Vital Signs & Weight: Vital Signs (12 hours) Temp Pulse Resp BP Pulse Ox 04/07/18 12:00 97.6 F 13 04/07/18 10:18 59 L 131/68 04/07/18 10:15 66 131/68 04/07/18 10:00 17 04/07/18 08:00 97.8 F 19 04/07/18 07:42 59 L 135/72 04/07/18 06:00 18 04/07/18 04:00 17 04/07/18 02:19 106 H 26 H 94 L 04/07/18 02:00 17 Weight Admit Weight 130 lb Weight 127 lb 13.89 oz Most Recent Monitor Data Heart Rate from ECG 101 NIBP 136/83 NIBP BP-Mean 101 Respiration from ECG 14 SpO2 100 I&O: 04/06/18 04/07/18 04/08/18 06:59 06:59 06:59 Intake Total 1687 1637.3 Output Total 250 220 Balance 1437 1417.3 Result Diagrams: 04/07/18 05:35 04/07/18 05:35 Additional Labs: Laboratory Tests 04/02/18 04/02/18 04/02/18 05:13 12:11 18:49 Hgb 9.0 L 8.9 L Potassium 6.0 H Creatinine 9.70 H Ammonia 04/03/18 04/03/18 04/04/18 04:10 04:10 03:16 Hgb 8.2 L Potassium 4.4 5.2 H Creatinine 7.06 H 8.52 H Ammonia 04/04/18 04/04/18 03:16 10:51 Hgb 8.6 L Potassium Creatinine Ammonia 39 Radiology Reviewed by me: Yes (PCXR - large [place] bullae, chronic changes, lines/ tubes in place) EKG Reviewed by me: Yes (Tele - A-fib in 90's) Phys Exam - Physical Examination sedate on [facility] ventilation, ETT in place HEENT: PERRLA, sclera anicteric, oral pharynx no lesions Neck: no nodes, no JVD, supple, full ROM diminished in bases, coarse sounds noted Respiratory: no wheezing S1, S2 Cardiovascular: no significant murmur, no rub, irregular tympanic Gastrointestinal: soft, positive bowel sounds LUE edema noted, AV fistula in place Musculoskeletal: no edema, pulses present Neurological: moves all 4 limbs Skin: normal turgor, cap refill <2 seconds Dx/Plan (1) Acute respiratory failure with hypoxia Code(s): J96.01 - ACUTE RESPIRATORY FAILURE WITH HYPOXIA Status: Acute Comment: Continue SIMV with FIO2 30%, wean as clinically indicated, Duonebs, Zosyn (2) Hyperkalemia Code(s): E87.5 - HYPERKALEMIA Status: Acute Comment: Improved and resolving with HD, serial K+ monitoring (3) COPD exacerbation Code(s): J44.1 - CHRONIC OBSTRUCTIVE PULMONARY DISEASE W (ACUTE) EXACERBATION Status: Acute Comment: Continue SIMV, Duonebs, Solumedrol, Zosyn (4) ESRD (end stage renal disease) on dialysis Code(s): N18.6 - END STAGE RENAL DISEASE; Z99.2 - DEPENDENCE ON RENAL DIALYSIS Status: Chronic Comment: HD per Renal service (5) Cirrhosis Code(s): K74.60 - UNSPECIFIED CIRRHOSIS OF LIVER Status: Chronic Qualifiers: Hepatic cirrhosis type: unspecified hepatic cirrhosis Comment: Continue Xifaxan, Lactulose (6) Atrial flutter with rapid ventricular response Code(s): I48.92 - UNSPECIFIED ATRIAL FLUTTER Status: Acute Comment: Rate improved, continue Diltiazem gtt - Plan continue antibiotics, PT/OT, social work lecturer, speech therapy, respiratory therapy, DVT proph w/SCDs Continue critical support -: Mech vent support weaning as clinically indicated -: HD per Renal service -: Continue Zosyn -: AM lab: BMP, CBC * PCXR in am
--- NOTE | 2018-04-07 13:00 | PRG ---
DATE OF SERVICE: 04/07/2018 Mr. Molina is more alert. He will squeeze hands and follow commands. He is still on IMV 8, pressure support of 8, PEEP of 3. PHYSICAL EXAMINATION: VITAL SIGNS: Blood pressure is 136/83, respiratory rate 13, oximetry is 100%. His minute volume is about 7 liters a minute. LUNGS: His lungs are distant and clear. HEART: Regular rhythm. ABDOMEN: Soft. His ascites, have not by exam increased. Intake and outputs reported as positive 1417. There is no record of dialysis yesterday. Chest radiograph suggestive of pulmonary edema, it worse than yesterday. IMPRESSION: 1. End-stage renal disease. 2. Status post intubation for severe hepatic encephalopathy which improved. 3. Probable underlying reactive airways versus chronic obstructive pulmonary disease. 4. End-stage renal disease. 5. Volume overload with pulmonary edema today. Needs dialysis today. We will decrease ventilatory support. Hopefully, if he is doing well in the morning he can be extubated. Critical care time was 30 minutes.
--- NOTE | 2018-04-07 14:26 | PDOC.CTH ---
Cardiology Progress Note - Subjective He remains intubated but awake and following commands. - Objective Vital Signs Temp Pulse Resp BP Pulse Ox 04/07/18 14:10 112 H 17 100 04/07/18 14:00 19 04/07/18 13:04 105 H 130/76 04/07/18 12:00 97.6 F 13 04/07/18 10:18 59 L 131/68 04/07/18 10:15 66 131/68 04/07/18 10:00 17 04/07/18 08:00 97.8 F 59 L 15 100 04/07/18 07:42 59 L 135/72 04/07/18 06:00 18 04/07/18 04:00 17 Admit Weight 130 lb Weight 127 lb 13.89 oz 04/06/18 04/07/18 04/08/18 06:59 06:59 06:59 Intake Total 1687 1637.3 Output Total 250 220 Balance 1437 1417.3 - Physical Examination General/Neuro: alert & oriented x3, NAD Neck: no JVD present Lungs: CTA, unlabored respirations Heart: RRR Abdomen: NT/ND Extremities: other: (no edema.) - Telemetry Telemetry Rhythm: Aflutter variable block HR 100's - Labs Result Diagrams: 04/07/18 05:35 04/07/18 05:35 Troponin/CKMB CK-MB (CK-2) 2.5 ng/mL (0-6.6) 04/01/18 07:26 Troponin I 0.098 ng/mL (< 0.028) H 04/01/18 12:26 - Assessment/Plan 1. Atrial flutter 2. Hep C Cirrhosis 3. AMS 4. ESRD on HD PLAN: - His chest and arm veins are much more engorged today as well as his abdomen has much more ascitis. His CXR shows pulmonary edema. Needs fluid off. - Continue diltiazem drip for rate control at low dose. - On HD - No anticoagulation as high risk for bleeding due to Hep C cirrhosis. - Will switch rate control strategy to Oral once PO tolerated. - Telemetry today may be sinus tachycardia with PAC's, will get EKG but likely still variable a flutter . - Will follow.
--- NOTE | 2018-04-07 15:00 | PRG ---
DATE OF SERVICE: 04/07/2018 SUBJECTIVE: The patient is more awake and alert. He is having lots of bowel movements. He denies a ny abdominal pain. OBJECTIVE: VITAL SIGNS: Pulse of 126, respiratory rate 14, blood pressure 124/78, and temperature is 97.6. HEENT: Significant for all and orotracheal tube and oral gastric tube. NECK: Supple. CHEST: Clear. CARDIOVASCULAR: Regular rate and rhythm. ABDOMEN: Protuberant but soft. Gastric output is 220 mL. He has had multiple bowel movements today . EXTREMITIES: Normal. LABORATORY DATA: Shows a white blood cell count of 10.1, hemoglobin 8.6, hematocrit of 25.9. Chemis tries show CO2 of 19, BUN 76, creatinine 7.65. ASSESSMENT: 1. Cirrhosis - stable. 2. Ascites - stable. 3. Ileus seems to be resolving. 4. End-stage renal disease. RECOMMENDATIONS: 1. Begin tube feedings. 2. Stop metoclopramide secondary to diarrhea.
--- NOTE | 2018-04-07 16:22 | EKG ---
Test Reason : Blood Pressure : / mmHG Vent. Rate : 126 BPM Atrial Rate : 126 BPM P-R Int : 120 ms QRS Dur : 110 ms QT Int : 358 ms P-R-T Axes : 074 -70 111 degrees QTc Int : 518 ms Sinus tachycardia with occasional Premature ventricular complexes and Fusion complexes Left anterior fascicular block Marked ST abnormality, possible lateral subendocardial injury Abnormal ECG When compared with ECG of 01-APR-2018 07:55, (Unconfirmed) Sinus rhythm has replaced Atrial flutter ST now depressed in Inferior leads Confirmed by DR. Mindy GONZALES (3) on 04/07/2018 4:22:07 PM Referred By: JOLANTA Confirmed By:DR. Mindy GONZALES
[2018-04-08] MEDS: Piperacillin/Tazobactam 2.25 GM in Sodium Chloride 0.9% 100 ML IVPB SCH ×3 (03:31→17:35)
[2018-04-08] MEDS: Diltiazem 125 MG in Sodium Chloride 0.9% 100 ML IVPB SCH (04:32)
[2018-04-08] MEDS: Metoclopramide HCl 10 MG/2 ML VIAL IVP SCH ×4 (05:08→23:08)
[2018-04-08 05:50] LABS: Anion Gap 19 mmol/L (10-20); BUN (Urea Nitrogen) 46 mg/dL (8.4-25.7); Calc. Creatinine Clearance 11 mL/min (70-130); Calcium 8.8 mg/dL (7.8-10.44); Carbon Dioxide 24 mmol/L (23-31); Chloride 99 mmol/L (98-107); Estimated GFR-MDRD 13; Glucose 114 mg/dL (80-115); Potassium 3.8 mmol/L (3.5-5.1); Sodium 138 mmol/L (136-145)
[2018-04-08 06:01] LABS: Band 8 % (5-11); Hemoglobin 8.8 g/dL (14.0-18.0); Lymphocytes 5 % (21-51); MDiff Complete? YES; Mean Corpuscular HGB CONC 32.5 g/dL (32.0-36.0); Mean Corpuscular Hemoglobin 29.6 pg (27.0-31.0); Mean Corpuscular Volume 91.2 fL (78.0-98.0); Mean Platelet Volume 7.3 fL (7.4-10.4); Monocytes 2 % (0-10); Neutrophil 85 % (42-75); PLT Morphology Comment Appears Adequate; Platelet Count 259 thou/uL (130-400); RBC Distribution Width 16.1 % (11.5-14.5); RBC Morphology Normal; Red Blood Cell (RBC) Count 2.96 mill/uL (4.70-6.10); White Blood Cell (WBC) Count 10.5 thou/uL (4.8-10.8)
--- NOTE | 2018-04-08 09:07 | PRG ---
DATE OF SERVICE: 04/08/2018 SUBJECTIVE: The patient is self extubated this morning. He has actually done very well since self e xtubating. PHYSICAL EXAMINATION: VITAL SIGNS: His temperature is 98.1 with no fever overnight, pulse 82, blood pressure 99/63, 24-mandeep r intake 1178, output not quantitated (patient is a dialysis patient). HEENT: Pupils react. Sclerae are anicteric. Oropharynx clear. Speech unimpaired. NECK: No JVD. LUNGS: Clear bilaterally. CARDIOVASCULAR: S1, S2 irregularly irregular. EKG shows atrial flutter. He has a 3/6 holosystolic murmur. ABDOMEN: Soft, nontender, nondistended. EXTREMITIES: No clubbing, cyanosis, or edema. Severe muscle wasting. X-RAY FINDINGS: A chest x-ray done earlier today showed the endotracheal tube was in good position. He has bilateral subacute infiltrates. He has a stent coming down from his left IJ area. LABORATORY DATA: White blood cell count 10.5, hemoglobin 8.8, hematocrit 27.0, platelet count 259. Sodium 130, potassium 3.8, chloride 99, CO2 24, BUN 46, creatinine 5.3, glucose 114. ASSESSMENT: 1. Acute hypoxic respiratory failure - now extubated. 2. End-stage renal disease requiring hemodialysis. 3. Encephalopathy, which is improved. 4. Chronic obstructive pulmonary disease. 5. Atrial flutter. 6. Fluid overload, which has gradually improved. PLAN: The patient is self-extubated and seems to be doing reasonably well. For the time being, we a re continuing his antibiotics. He is continuing Cardizem drip at the discretion of Cardiology. I wi ll go ahead and cut back his steroids and start him on a liquid diet, hoping to advance as tolerated.
--- NOTE | 2018-04-08 10:02 | PDOC.PN ---
- Subjective Encounter Start Date: 04/08/18 Encounter Start Time: 10:00 Mr. Molina was seen today in follow-up of acute respiratory failure. He has self extubated himself last night. He does not have any complaints. He appears to be comfortable. - Objective Resuscitation Status: Resuscitation Status FULL:Full Resuscitation MAR Reviewed: Yes Vital Signs & Weight: Vital Signs (12 hours) Temp Pulse Resp BP Pulse Ox 04/08/18 08:00 97.9 F 92 18 98 04/08/18 07:00 97.9 F 04/08/18 06:10 82 99/63 04/08/18 06:08 82 10 L 100 04/08/18 06:00 12 04/08/18 05:00 98.1 F 04/08/18 04:00 13 04/08/18 02:27 83 100/65 04/08/18 02:26 86 15 100 04/08/18 02:00 12 04/08/18 00:00 13 04/07/18 22:16 113 H 108/67 04/07/18 22:15 110 H 12 100 Weight Admit Weight 130 lb Weight 121 lb 14.65 oz Most Recent Monitor Data Heart Rate from ECG 82 NIBP 125/74 NIBP BP-Mean 82 Respiration from ECG 17 SpO2 99 I&O: 04/07/18 04/08/18 04/09/18 06:59 06:59 06:59 Intake Total 1637.3 1178.6 12 Output Total 220 Balance 1417.3 1178.6 12 Result Diagrams: 04/08/18 05:20 04/08/18 05:20 Phys Exam - Physical Examination HEENT: PERRLA, sclera anicteric + JVD Respiratory: no wheezing, no rales + rhonchi bilaterally Cardiovascular: RRR, no significant murmur, no rub no gallop Gastrointestinal: soft, non-tender, no distention, positive bowel sounds Musculoskeletal: edema present + massive edema in the left upper extremity no Neurological: non-focal, moves all 4 limbs Psychiatric: normal affect Deviation from normal: oriented to person place and year, not time Dx/Plan (1) Acute respiratory failure with hypoxia Code(s): J96.01 - ACUTE RESPIRATORY FAILURE WITH HYPOXIA Status: Acute Comment: He has self- extubated (2) Atrial flutter with rapid ventricular response Code(s): I48.92 - UNSPECIFIED ATRIAL FLUTTER Status: Acute Comment: Rate improved, continue Diltiazem gtt (3) COPD exacerbation Code(s): J44.1 - CHRONIC OBSTRUCTIVE PULMONARY DISEASE W (ACUTE) EXACERBATION Status: Acute Comment: Duonebs, Solumedrol, Zosyn (4) Chronic hepatitis C Code(s): B18.2 - CHRONIC VIRAL HEPATITIS C Status: Chronic (5) ESRD (end stage renal disease) on dialysis Code(s): N18.6 - END STAGE RENAL DISEASE; Z99.2 - DEPENDENCE ON RENAL DIALYSIS Status: Chronic Comment: HD per Renal service - Plan * Acute Respiratory failure- improved- he has extubated himself * Continue treatment for COPD- steroids and Zosyn- which antibiotics can likely be de-escalated, and steroids tappered * Atrial Flutter- his heart rate is stable- Cardizem drip is on hold- await further recommendations from Cardiology * Hepatitis C with cirrhosis- stable- SBP has been ruled out, and encephalopathy which has improved, is not felt to be due to liver disease. * ESRD- continue HD as per Nephrology
[2018-04-08] MEDS: Rifaximin 550 MG TAB PO SCH ×2 (11:13→20:43)
[2018-04-08] MEDS: Cinacalcet HCl 30 MG TAB PO SCH ×2 (11:13→20:43)
[2018-04-08] MEDS: Pantoprazole 40 MG VIAL IVP SCH ×2 (11:14→20:43)
[2018-04-08] MEDS: Aspirin 81 mg Enteric Coated Tablet PO SCH (11:31)
[2018-04-08] MEDS: Amlodipine 10 MG TAB PO SCH (11:31)
[2018-04-08] MEDS: Metoprolol Tartrate 50 MG TAB PO SCH ×2 (11:32→20:43)
--- NOTE | 2018-04-08 14:34 | PRG ---
DATE OF SERVICE: 04/08/2018 SUBJECTIVE: A 67-year-old gentleman being seen for end-stage renal disease. The patient denies any nausea, vomiting, or chest pain. PHYSICAL EXAMINATION: GENERAL: Patient is awake, alert. VITAL SIGNS: Afebrile, pulse 60, breathing 16, blood pressure 139/60. GENERAL APPEARANCE AND MENTAL STATUS: Fair. HEAD/NECK: Normocephalic. Atraumatic. EYES: EOMI. No deformity. EARS: Clear. No ulcers. NOSE: Intact. No lesions. MOUTH: Clear. No discharge. THROAT: Clear. No exudate. LUNGS: Clear. No crackles. CARDIAC: S1, S2. No rub. ABDOMEN: Benign. BS+. GENITALIA/RECTUM: Rosario absent. BACK/EXTREMITIES: Edema 0+ Ulcer- NEUROLOGICAL: Alert and motor intact. SKIN: Rash- Bruise- LYMPHATICS: Edema- Ulcer- LABORATORY DATA: Hemoglobin 8.8, potassium 3.8. ASSESSMENT AND RECOMMENDATIONS: 1. Stage 6 chronic kidney disease, plan dialysis Tuesday. 2. Hypertension. 3. Anemia, stable. 4. Medication based on glomerular filtration rate appropriate.
--- NOTE | 2018-04-08 20:13 | EKG ---
Test Reason : Blood Pressure : / mmHG Vent. Rate : 097 BPM Atrial Rate : 227 BPM P-R Int : 000 ms QRS Dur : 108 ms QT Int : 374 ms P-R-T Axes : 000 -63 121 degrees QTc Int : 474 ms Atrial flutter with variable A-V block Left anterior fascicular block Prolonged QT Abnormal ECG Confirmed by KERRY FRANKEL ([id number]), scientific editor YOMI LANTIGUA ([id number]) on 04/08/2018 8:13:01 PM Referred By: Confirmed By:KERRY FRANKEL
--- NOTE | 2018-04-08 20:20 | EKG ---
Test Reason : Blood Pressure : / mmHG Vent. Rate : 113 BPM Atrial Rate : 113 BPM P-R Int : 214 ms QRS Dur : 122 ms QT Int : 352 ms P-R-T Axes : 031 -80 122 degrees QTc Int : 482 ms Poor data quality, interpretation may be adversely affected Sinus tachycardia with 1st degree A-V block Left anterior fascicular block Abnormal ECG T wave inversion progression from baseline EKG on 14-APR-2015 now includes V4-V5 inversion Confirmed by KERRY FRANKEL ([id number]), research editor YOMI LANTIGUA ([id number]) on 04/08/2018 8:20:32 PM Referred By: Confirmed By:KERRY FRANKEL
[2018-04-09] MEDS: Piperacillin/Tazobactam 2.25 GM in Sodium Chloride 0.9% 100 ML IVPB SCH ×3 (01:02→17:32)
[2018-04-09] MEDS: Diltiazem 125 MG in Sodium Chloride 0.9% 100 ML IVPB SCH (03:27)
[2018-04-09] MEDS: Simethicone Chewable 80 MG TAB PO PRN (03:37)
[2018-04-09 04:30] LABS: Anion Gap 21 mmol/L (10-20); BUN (Urea Nitrogen) 62 mg/dL (8.4-25.7); Calc. Creatinine Clearance 9 mL/min (70-130); Calcium 8.4 mg/dL (7.8-10.44); Carbon Dioxide 22 mmol/L (23-31); Chloride 101 mmol/L (98-107); Estimated GFR-MDRD 11; Glucose 123 mg/dL (80-115); Potassium 3.9 mmol/L (3.5-5.1); Sodium 140 mmol/L (136-145)
[2018-04-09 05:33] LABS: Hemoglobin 8.5 g/dL (14.0-18.0); Hypochromia SLIGHT = 6-15 cells (100X) (0-5/hpf); Lymphocytes 3 % (21-51); MDiff Complete? YES; Mean Corpuscular HGB CONC 33.5 g/dL (32.0-36.0); Mean Corpuscular Hemoglobin 30.5 pg (27.0-31.0); Mean Corpuscular Volume 91.1 fL (78.0-98.0); Mean Platelet Volume 7.3 fL (7.4-10.4); Monocytes 3 % (0-10); Neutrophil 94 % (42-75); Nucleated RBC 1 % (0); PLT Morphology Comment Appears Adequate; Platelet Count 272 thou/uL (130-400); RBC Distribution Width 16.4 % (11.5-14.5); White Blood Cell (WBC) Count 15.7 thou/uL (4.8-10.8)
[2018-04-09] MEDS: Amlodipine 10 MG TAB PO SCH (08:17)
[2018-04-09] MEDS: Cinacalcet HCl 30 MG TAB PO SCH ×2 (08:18→20:58)
[2018-04-09] MEDS: Pantoprazole 40 MG VIAL IVP SCH ×2 (08:19→20:59)
[2018-04-09] MEDS: Rifaximin 550 MG TAB PO SCH ×2 (08:19→20:59)
[2018-04-09] MEDS: Metoprolol Tartrate 50 MG TAB PO SCH ×2 (08:19→20:59)
[2018-04-09] MEDS: Aspirin 81 mg Enteric Coated Tablet PO SCH (08:21)
--- NOTE | 2018-04-09 08:42 | PDOC.PN ---
- Subjective Encounter Start Date: 04/09/18 Encounter Start Time: 08:40 Mr. Molina was seen today in follow-up of respiratory failure. He does not have any complaints. He is breathing well via NC. - Objective Resuscitation Status: Resuscitation Status FULL:Full Resuscitation MAR Reviewed: Yes Vital Signs & Weight: Vital Signs (12 hours) Temp Pulse Resp BP Pulse Ox 04/09/18 08:17 93 148/79 H 04/09/18 06:15 98 04/09/18 06:13 73 20 10 L 04/09/18 04:00 98.6 F 04/09/18 00:58 73 19 96 04/09/18 00:00 99.1 F 04/08/18 22:04 92 20 92 L Weight Admit Weight 130 lb Weight 124 lb 5.451 oz Most Recent Monitor Data Heart Rate from ECG 74 NIBP 145/78 NIBP BP-Mean 88 Respiration from ECG 17 SpO2 97 I&O: 04/08/18 04/09/18 04/10/18 06:59 06:59 06:59 Intake Total 1178.6 2237 Balance 1178.6 2237 Result Diagrams: 04/09/18 03:35 04/09/18 03:35 Phys Exam - Physical Examination HEENT: PERRLA Respiratory: no wheezing, no rhonchi + rales at the left base Cardiovascular: RRR, no rub no gallop, and 2/6 systolic murmur Gastrointestinal: soft, non-tender, positive bowel sounds + mild distention Musculoskeletal: edema present 1+ edema Neurological: moves all 4 limbs Dx/Plan (1) Acute respiratory failure with hypoxia Code(s): J96.01 - ACUTE RESPIRATORY FAILURE WITH HYPOXIA Status: Acute Comment: He has self- extubated (2) Atrial flutter with rapid ventricular response Code(s): I48.92 - UNSPECIFIED ATRIAL FLUTTER Status: Acute Comment: Rate improved, continue Diltiazem gtt (3) COPD exacerbation Code(s): J44.1 - CHRONIC OBSTRUCTIVE PULMONARY DISEASE W (ACUTE) EXACERBATION Status: Acute Comment: Duonebs, Solumedrol, Zosyn (4) Hepatic encephalopathy Code(s): K72.90 - HEPATIC FAILURE, UNSPECIFIED WITHOUT COMA Status: Acute (5) Chronic hepatitis C Code(s): B18.2 - CHRONIC VIRAL HEPATITIS C Status: Chronic (6) Cirrhosis Code(s): K74.60 - UNSPECIFIED CIRRHOSIS OF LIVER Status: Chronic Qualifiers: Hepatic cirrhosis type: unspecified hepatic cirrhosis Comment: Continue Xifaxan, Lactulose (7) ESRD (end stage renal disease) on dialysis Code(s): N18.6 - END STAGE RENAL DISEASE; Z99.2 - DEPENDENCE ON RENAL DIALYSIS Status: Chronic Comment: HD per Renal service - Plan * Mr. Molina has a history of chronic hepatitis C with cirrhosis . He was admitted initially with acute on chronic respiratory failure thought to be due to diastolic dysfunction initially. He was also found at that time to have Atrial Flutter, with a rapid heart rate. He was placed on IV diuresis, as well as Cardizem for rate control. He was evaluated by Cardiology. Anticoagulation was held due to increased risk of bleeding, due to his cirrhosis. He developed some worsening in his mentation, and vomited ( ? blood) and there was concern that he would not maintain his airway and would decompensate with regards to his respiratory status, and he was intubated. He was evaluated by GI for concerns of GI bleed, and SBP, and possible hepatic encephalopathy. SBP has been ruled out, and well as any concern for GI bleed. He likely had some underlying hepatic encephalopathy. COPD, Volume overload, from ESRD, and CHf have complicated his respiratory status. He has since self extubated, and his mental status has improved. * Acute respiratory failure- clinically stable. Continue Duonebs, steroids, and antibiotics * Atrial Flutter- his heart rate is stable on Cardizem drip * Cirrhosis- compensated * Hepatic encephalopathy- improved with Lactulose and Rifaxamin * ESRD- continue dialysis as per Nephrology * He has been cleared to move out of the ICU today
[2018-04-09] MEDS: Metoclopramide HCl 10 MG/2 ML VIAL IVP SCH ×3 (10:34→17:39)
--- NOTE | 2018-04-09 10:47 | PRG ---
DATE OF SERVICE: 04/09/2018 SUBJECTIVE: The patient remains in the ICU, he has done well overnight. He has been intermittently on a Cardizem drip for atrial fibrillation with a rapid ventricular response. PHYSICAL EXAMINATION: VITAL SIGNS: Temperature is 98.6, pulse is 74, blood pressure 145/78, O2 saturation 100% on nasal ca nnula. Total intake for 24 hours is 2037, output not measured. This patient is on chronic hemodialy sis. HEENT: Remarkable for mild bitemporal wasting. NECK: No JVD. LUNGS: Clear without wheezing or rhonchi. CARDIOVASCULAR: S1, S2, irregularly irregular. ABDOMEN: Soft, nontender, nondistended. EXTREMITIES: No clubbing, cyanosis, or edema. LABORATORY DATA: White blood cell count 15.7, hematocrit 25.5, platelet count 272. Sodium 140, pota ssium 3.9, chloride 101, CO2 20, BUN 62, creatinine 6.4, glucose 123. ASSESSMENT: 1. Status post acute hypoxic respiratory failure requiring mechanical ventilation. 2. End-stage renal disease requiring hemodialysis. 3. Improved encephalopathy. 4. Chronic obstructive pulmonary disease. 5. Atrial flutter. PLAN: The patient will be moved out to the [facility]. Hopefully, we can increase his level of activity. Physical therapy will be consulted to assist the patient.
--- NOTE | 2018-04-09 13:14 | PRG ---
DATE OF SERVICE: 04/09/2018 SUBJECTIVE: This 67-year-old gentleman is being seen for end-stage renal disease. The patient denie s any nausea, vomiting or chest pain. PHYSICAL EXAMINATION: GENERAL: Patient is awake, alert. VITAL SIGNS: Afebrile, pulse of 100, breathing 16, blood pressure 139/95. GENERAL APPEARANCE AND MENTAL STATUS: Fair. HEAD/NECK: Normocephalic. Atraumatic. EYES: EOMI. No deformity. EARS: Clear. No ulcers. NOSE: Intact. No lesions. MOUTH: Clear. No discharge. THROAT: Clear. No exudate. LUNGS: Clear. No crackles. CARDIAC: S1, S2. No rub. ABDOMEN: Benign. BS+. GENITALIA/RECTUM: Rosario absent. BACK/EXTREMITIES: Edema 0+ Ulcer- NEUROLOGICAL: Alert and motor intact. SKIN: Rash- Bruise- LYMPHATICS: Edema- Ulcer- LABORATORY DATA: Show hemoglobin 8.5. ASSESSMENT AND PLAN: 1. Stage 6 chronic kidney disease, on hemodialysis Tuesday, Tuesday, Tuesday 2. Hypertension, stable. 3. Anemia, stable. 4. Medication based on glomerular filtration rate appropriate.
--- NOTE | 2018-04-09 16:49 | PDOC.CTH ---
<Arlin Gracia - Last Filed: 04/09/18 17:04> Cardiology Progress Note - Subjective The pt seen and examined. No overnight events. No cardiac complaints. Cont. complaining of SOB. - Objective Vital Signs Temp Pulse Pulse Pulse Resp BP BP 04/09/18 14:28 98 16 04/09/18 13:35 98 101 H 139/90 04/09/18 12:00 97.7 F 04/09/18 10:19 84 20 04/09/18 08:17 93 148/79 H 04/09/18 08:00 98.6 F 93 17 04/09/18 07:00 98.6 F 04/09/18 06:15 04/09/18 06:13 73 20 BP Pulse Ox 04/09/18 14:28 97 04/09/18 13:35 149/92 H 04/09/18 12:00 04/09/18 10:19 96 04/09/18 08:17 04/09/18 08:00 98 04/09/18 07:00 04/09/18 06:15 98 04/09/18 06:13 97 Admit Weight 130 lb Weight 124 lb 5.451 oz 04/08/18 04/09/18 04/10/18 06:59 06:59 06:59 Intake Total 1178.6 2237 415 Balance 1178.6 2237 415 - Physical Examination General/Neuro: alert & oriented x3 Neck: no JVD present Lungs: other: (very diminished at bases) Heart: other: (irregular) Extremities: other: (no edema) - Telemetry Telemetry Rhythm: AFib 100s - Labs Result Diagrams: 04/09/18 03:35 04/09/18 03:35 Troponin/CKMB CK-MB (CK-2) 2.5 ng/mL (0-6.6) 04/01/18 07:26 Troponin I 0.098 ng/mL (< 0.028) H 04/01/18 12:26 - Assessment/Plan 1. Aflutter/Aflutter - HR increased gradually after diltiazem is off; Resume Ditilazem 120mg qd; 2. Hep C with Cirrhosis - 3. HTN - stable 4. ESRD on HD on MWF - managed by primary counselor 5. COPD - on 2LNC; managed by home care associate 6. Anemia - stable; 7. Hepatic encephalopathy - improving MAR reviewed Review of Systems - Review of Systems Constitutional: reports: weakness EENTM: reports: no symptoms reported Respiratory: reports: see HPI Cardiac (ROS): reports: no symptoms reported ABD/GI: reports: no symptoms reported : reports: no symptoms reported Musculoskeletal: reports: no symptoms reported <Galen Cruz - Last Filed: 04/09/18 19:40> Cardiology Progress Note - Objective Vital Signs Temp Pulse Pulse Pulse Resp BP BP 04/09/18 19:33 97.1 F L 98 20 04/09/18 17:25 93 20 04/09/18 14:28 98 16 04/09/18 13:35 98 101 H 139/90 04/09/18 12:00 97.7 F 04/09/18 10:19 84 20 04/09/18 08:17 93 148/79 H 04/09/18 08:00 98.6 F 93 17 BP BP Pulse Ox 04/09/18 19:33 147/90 H 91 L 04/09/18 17:25 152/91 H 93 L 04/09/18 14:28 97 04/09/18 13:35 149/92 H 04/09/18 12:00 04/09/18 10:19 96 04/09/18 08:17 04/09/18 08:00 98 Admit Weight 130 lb Weight 124 lb 5.451 oz 04/08/18 04/09/18 04/10/18 06:59 06:59 06:59 Intake Total 1178.6 2237 415 Balance 1178.6 2237 415 - Labs Result Diagrams: 04/09/18 03:35 04/09/18 03:35 Troponin/CKMB CK-MB (CK-2) 2.5 ng/mL (0-6.6) 04/01/18 07:26 Troponin I 0.098 ng/mL (< 0.028) H 04/01/18 12:26 - Assessment/Plan Pt. seen and eval. by me. I agree with the A/P by the CHEESE COOKER.He is feeling better today and is more alert.
[2018-04-10] MEDS: Metoclopramide HCl 10 MG/2 ML VIAL IVP SCH ×4 (00:02→18:09)
[2018-04-10] MEDS: Piperacillin/Tazobactam 2.25 GM in Sodium Chloride 0.9% 100 ML IVPB SCH ×2 (02:04→09:12)
[2018-04-10 05:21] LABS: Anion Gap 19 mmol/L (10-20); BUN (Urea Nitrogen) 73 mg/dL (8.4-25.7); Calc. Creatinine Clearance 7 mL/min (70-130); Calcium 8.2 mg/dL (7.8-10.44); Carbon Dioxide 23 mmol/L (23-31); Chloride 103 mmol/L (98-107); Estimated GFR-MDRD 8; Glucose 140 mg/dL (80-115); Sodium 141 mmol/L (136-145)
[2018-04-10 05:25] LABS: Band 4 % (5-11); Hemoglobin 8.7 g/dL (14.0-18.0); Lymphocytes 2 % (21-51); MDiff Complete? YES; Mean Corpuscular HGB CONC 32.3 g/dL (32.0-36.0); Mean Corpuscular Hemoglobin 29.8 pg (27.0-31.0); Mean Corpuscular Volume 92.2 fL (78.0-98.0); Mean Platelet Volume 7.6 fL (7.4-10.4); Monocytes 6 % (0-10); Neutrophil 88 % (42-75); PLT Morphology Comment Appears Adequate; Platelet Count 251 thou/uL (130-400); RBC Distribution Width 16.7 % (11.5-14.5); White Blood Cell (WBC) Count 15.2 thou/uL (4.8-10.8)
[2018-04-10] MEDS: Pantoprazole 40 MG VIAL IVP SCH ×2 (09:12→21:32)
[2018-04-10] MEDS: Cinacalcet HCl 30 MG TAB PO SCH ×2 (09:18→21:31)
[2018-04-10] MEDS: Metoprolol Tartrate 50 MG TAB PO SCH ×2 (09:18→21:32)
[2018-04-10] MEDS: Rifaximin 550 MG TAB PO SCH ×2 (09:18→21:32)
[2018-04-10] MEDS: Amlodipine 10 MG TAB PO SCH (09:18)
[2018-04-10] MEDS: Aspirin 81 mg Enteric Coated Tablet PO SCH (09:19)
--- NOTE | 2018-04-10 10:06 | PDOC.PN ---
- Subjective Encounter Start Date: 04/10/18 Encounter Start Time: 10:04 Mr. Molina was seen today in follow-up of acute respiratory failure. He does not have any complaints. He is asking when he can go home. He still appears extremely weak. weak. - Objective Resuscitation Status: Resuscitation Status FULL:Full Resuscitation MAR Reviewed: Yes Vital Signs & Weight: Vital Signs (12 hours) Temp Pulse Resp BP BP Pulse Ox 04/10/18 09:18 80 139/84 04/10/18 08:00 80 15 04/10/18 07:34 98.6 F 83 19 155/92 H 96 04/10/18 04:28 98.2 F 73 20 138/89 96 04/10/18 02:39 67 16 04/10/18 00:42 98.9 F 75 19 127/61 97 Weight Admit Weight 130 lb Weight 138 lb 12.8 oz Most Recent Monitor Data Heart Rate from ECG 105 NIBP 141/83 NIBP BP-Mean 93 Respiration from ECG 17 SpO2 99 I&O: 04/09/18 04/10/18 04/11/18 06:59 06:59 06:59 Intake Total 2237 875 Balance 2237 875 Result Diagrams: 04/10/18 05:00 04/10/18 05:00 Phys Exam - Physical Examination HEENT: PERRLA, sclera anicteric Respiratory: no wheezing, no rales + rhonchi and coarse breath sounds bilaterally Cardiovascular: no significant murmur irregular, mildly tachycardic, Gastrointestinal: soft, non-tender, positive bowel sounds + mildly distended Musculoskeletal: edema present + edema in the left upper extremity Neurological: non-focal, moves all 4 limbs Psychiatric: normal affect, A&O x 3 Dx/Plan (1) Acute respiratory failure with hypoxia Code(s): J96.01 - ACUTE RESPIRATORY FAILURE WITH HYPOXIA Status: Acute Comment: He has self- extubated (2) Atrial flutter with rapid ventricular response Code(s): I48.92 - UNSPECIFIED ATRIAL FLUTTER Status: Acute Comment: Rate improved, continue Diltiazem gtt (3) COPD exacerbation Code(s): J44.1 - CHRONIC OBSTRUCTIVE PULMONARY DISEASE W (ACUTE) EXACERBATION Status: Acute Comment: Duonebs, Solumedrol, Zosyn (4) Hepatic encephalopathy Code(s): K72.90 - HEPATIC FAILURE, UNSPECIFIED WITHOUT COMA Status: Acute (5) Chronic hepatitis C Code(s): B18.2 - CHRONIC VIRAL HEPATITIS C Status: Chronic (6) Cirrhosis Code(s): K74.60 - UNSPECIFIED CIRRHOSIS OF LIVER Status: Chronic Qualifiers: Hepatic cirrhosis type: unspecified hepatic cirrhosis Comment: Continue Xifaxan, Lactulose (7) ESRD (end stage renal disease) on dialysis Code(s): N18.6 - END STAGE RENAL DISEASE; Z99.2 - DEPENDENCE ON RENAL DIALYSIS Status: Chronic Comment: HD per Renal service (8) Physical deconditioning Code(s): R53.81 - OTHER MALAISE Status: Acute - Plan PT/OT * Acute respiratory failure- continues to improve * Atrial Flutter- his heart rate is relatively stable on Cardizem and Metoprolol * COPD- will change Zosyn to Augmentin, and change steroids to oral * Hepatic encephalopathy- continue Rifaximin, and Lactulose * ESRD- continue dialysis as per Nephrology * Severe deconditioning- continue PT/OT- will need to assess in a few days what his discharge needs will be Home Health vs Skilled.
--- NOTE | 2018-04-10 11:59 | PRG ---
DATE OF SERVICE: 04/10/2018 SUBJECTIVE: This is a 67-year-old male being seen for end-stage renal disease. The patient denies a ny nausea, vomiting or chest pain. PHYSICAL EXAMINATION: GENERAL: Patient is awake, alert. VITAL SIGNS: Afebrile, pulse 60, breathing 16, blood pressure 145/93. OBJECTIVE: See above. Awake, alert, in no acute distress. GENERAL APPEARANCE AND MENTAL STATUS: Fair. HEAD/NECK: Normocephalic. Atraumatic. EYES: EOMI. No deformity. EARS: Clear. No ulcers. NOSE: Intact. No lesions. MOUTH: Clear. No discharge. THROAT: Clear. No exudate. LUNGS: Clear. No crackles. CARDIAC: S1, S2. No rub. ABDOMEN: Benign. BS+. GENITALIA/RECTUM: Rosario absent. BACK/EXTREMITIES: Edema 0+ Ulcer- NEUROLOGICAL: Alert and motor intact. SKIN: Rash- Bruise- LYMPHATICS: Edema- Ulcer- LABORATORY: Hemoglobin 8.7, creatinine 8.5. ASSESSMENT AND PLAN: 1. Stage 6 chronic kidney disease. Continue dialysis. 2. Hypertension, stable. 3. Anemia, stable. 4. Medication based on glomerular filtration rate are appropriate.
--- NOTE | 2018-04-10 12:45 | PDOC.CTH ---
Cardiology Progress Note - Subjective He is doing much better. His mentation is back to normal. He denies any hematemesis before admission but admits to black tarry stool. - Objective Vital Signs Temp Pulse Pulse Pulse Resp BP BP 04/10/18 11:33 98.2 F 88 17 04/10/18 11:08 96 16 04/10/18 10:15 101 H 95 158/83 H 04/10/18 09:18 80 139/84 04/10/18 08:00 98.6 F 80 15 04/10/18 07:34 98.6 F 83 19 04/10/18 04:28 98.2 F 73 20 04/10/18 02:39 67 16 BP BP Pulse Ox Pulse Ox Pulse Ox 04/10/18 11:33 158/83 H 93 L 04/10/18 11:08 04/10/18 10:15 145/93 H 89 L 84 L 04/10/18 09:18 04/10/18 08:00 96 04/10/18 07:34 155/92 H 96 04/10/18 04:28 138/89 96 04/10/18 02:39 Admit Weight 130 lb Weight 138 lb 12.8 oz 04/09/18 04/10/18 04/11/18 06:59 06:59 06:59 Intake Total 2237 875 Balance 2237 875 - Physical Examination General/Neuro: alert & oriented x3, NAD Neck: no JVD present Lungs: CTA, unlabored respirations Heart: RRR Abdomen: NT/ND Extremities: + edema B (1+) - Telemetry Telemetry Rhythm: Afib HR 100's. - Labs Result Diagrams: 04/10/18 05:00 04/10/18 05:00 Troponin/CKMB CK-MB (CK-2) 2.5 ng/mL (0-6.6) 04/01/18 07:26 Troponin I 0.098 ng/mL (< 0.028) H 04/01/18 12:26 - Assessment/Plan 1. Atrial flutter 2. Hep C Cirrhosis 3. AMS 4. ESRD on HD 5. HTN PLAN: - Continue rate control. - Hold AMLODIPINE. - Increase Diltiazem to 180 mg daily. - Increase Metoprolol to 100 mg BID.
--- NOTE | 2018-04-10 13:04 | RAD ---
CHEST 1 VIEW SEMIUPRIGHT PORTABLE: HISTORY: A 67-year-old male with a history of respiratory insufficiency. FINDINGS: Life support tubes remain place. Stable cardiomegaly and bilateral interstitial and linear parenchym al changes bilaterally, particularly in the perihilar regions with some abnormal increased opacity in the left retrocardiac region. Bullous changes in the apices. IMPRESSION: Overall stable chest. Continue short-term followup. POS: MARIA E
[2018-04-10] MEDS: Amoxicillin/Potassium Clav 500 MG TAB PO SCH (15:47)
--- NOTE | 2018-04-10 16:03 | SPC ---
LEFT UPPER EXTREMITY ARTERIOVENOUS DIALYSIS FISTULOGRAM AND VENOGRAM TO SVC: Date: 04/10/18 HISTORY: Left upper extremity arteriovenous dialysis fistula. Patient presents with significant left upper ext remity edema. TECHNIQUE: After informed consent was obtained, the patient was placed on the angiography table in the supine po sition. The left upper extremity was meticulously prepped and draped in the usual sterile fashion. Sk in and subcutaneous tissues overlying the intended puncture site were infiltrated with buffered 1% li docaine for local anesthesia. The fistula was accessed utilizing micropuncture technique and 4 Tongan introducer sheath was placed. Fistulogram and venogram to the SVC were performed. Images demonstrated severe tortuosity with serpig inous dual venous outflow to the level of the SVC. There is severe narrowing within a stent in the le ft innominate vein with venous structures predominantly dilated proximal to this region, including mu ltiple collateral vessels. A 6 Tongan sheath was placed, followed by placement of a 5 [place] angled [place] catheter. A .035 Gl idewire and angled [place] catheter were manipulated to the level of the axillary vein, but the cathete r was unable to be manipulated further proximally due to tortuosity and redundancy of the fistula at the level of the antecubital fossa. The .035 Glidewire was manipulated into the SVC. Given the tor tuosity and redundancy of the fistula, an angioplasty balloon would most likely be unable to negotiat e the areas of tortuosity and as a result, the procedure was terminated. The patient will be brought back for angioplasty on 04/11/18 with more proximal access. The catheter was removed and hemostasis was achieved with direct pressure. The patient tolerated the procedure well and without immediate complication. A dry, sterile dressing was placed at catheter ent ry site. 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 This precludes adequate access and difficulty in negotiating the tortuosity. As a result, repeat examination with more proximal access will be performed on 04/11/18 with planned [employer] of the i n-stent stenosis. Separate access was not performed on today's examination due to patient's difficult y in laying stationary for a prolonged period of time. POS: MARIA E
--- NOTE | 2018-04-10 16:53 | EKG ---
Test Reason : Blood Pressure : / mmHG Vent. Rate : 094 BPM Atrial Rate : 244 BPM P-R Int : 000 ms QRS Dur : 116 ms QT Int : 414 ms P-R-T Axes : 000 -59 117 degrees QTc Int : 517 ms Atrial flutter with variable A-V block Left anterior fascicular block Left ventricular hypertrophy with QRS widening Prolonged QT Abnormal ECG When compared with ECG of 07-APR-2018 14:36, Atrial flutter has replaced Sinus rhythm ST less depressed in Inferior leads Confirmed by DR. Mindy GONZALES ([id number]) on 04/10/2018 4:53:35 PM Referred By: KATIE Confirmed By:DR. Mindy GONZALES
[2018-04-10] MEDS ORDERED: Amoxicillin/Potassium Clav 875 MG TAB PO SCH (21:00)
[2018-04-11] MEDS: Metoclopramide HCl 10 MG/2 ML VIAL IVP SCH ×4 (00:24→18:36)
[2018-04-11 05:51] LABS: Anion Gap 16 mmol/L (10-20); BUN (Urea Nitrogen) 56 mg/dL (8.4-25.7); Calc. Creatinine Clearance 10 mL/min (70-130); Calcium 8.3 mg/dL (7.8-10.44); Carbon Dioxide 26 mmol/L (23-31); Chloride 102 mmol/L (98-107); Estimated GFR-MDRD 10; Glucose 97 mg/dL (80-115); Potassium 3.4 mmol/L (3.5-5.1); Sodium 141 mmol/L (136-145)
[2018-04-11 06:03] LABS: Hemoglobin 8.5 g/dL (14.0-18.0); Hypochromia SLIGHT = 6-15 cells (100X) (0-5/hpf); Lymphocytes 5 % (21-51); MDiff Complete? YES; Mean Corpuscular HGB CONC 32.9 g/dL (32.0-36.0); Mean Corpuscular Hemoglobin 30.1 pg (27.0-31.0); Mean Corpuscular Volume 91.6 fL (78.0-98.0); Mean Platelet Volume 7.2 fL (7.4-10.4); Monocytes 3 % (0-10); Neutrophil 92 % (42-75); PLT Morphology Comment Appears Adequate; Platelet Count 267 thou/uL (130-400); RBC Distribution Width 17.1 % (11.5-14.5); Red Blood Cell (RBC) Count 2.81 mill/uL (4.70-6.10); White Blood Cell (WBC) Count 14.5 thou/uL (4.8-10.8)
[2018-04-11] MEDS ORDERED: predniSONE 20 MG TAB PO SCH (08:00)
[2018-04-11] MEDS ORDERED: Iopamidol 300 61% 100 ML VIAL FS ONE (08:03)
[2018-04-11] MEDS ORDERED: Metoprolol Tartrate 50 MG TAB ONE (10:01)
[2018-04-11] MEDS: Cinacalcet HCl 30 MG TAB PO SCH ×2 (10:22→20:37)
[2018-04-11] MEDS: Rifaximin 550 MG TAB PO SCH ×2 (10:22→20:38)
[2018-04-11] MEDS: Metoprolol Tartrate 50 MG TAB PO SCH ×2 (10:23→20:38)
[2018-04-11] MEDS: Aspirin 81 mg Enteric Coated Tablet PO SCH (10:23)
[2018-04-11] MEDS: Pantoprazole 40 MG VIAL IVP SCH ×2 (10:25→20:37)
--- NOTE | 2018-04-11 13:40 | SPC ---
LEFT UPPER EXTREMITY ARTERIOVENOUS DIALYSIS FISTULOGRAM AND VENOGRAM TO SVC: ACETYLENE BURNER OF CENTRAL STENOSIS: 04/11/2018 HISTORY: Patient with left upper extremity arm swelling with left upper extremity arteriovenous dialysis fistu la. The patient had a fistulogram and a venogram performed one day ago, which demonstrated narrowing in the region of the innominate vein stent. Dilated serpiginous venous outflow was present. Attemp ts at manipulating the guide wire from access one day ago were unsuccessful due to tortuosity and the patient's inability to remain stationary. The patient was brought back today for more proximal acce ss in the left arm. TECHNIQUE: After informed consent was obtained, the patient was placed on the angiography table in the supine po sition. Limited sonographic evaluation of the left upper extremity was performed. An area overlying the left arm was marked and then meticulously prepped and draped in the usual sterile fashion. The skin and subcutaneous tissues were infiltrated with buffered 1% Lidocaine for local anesthesia. A di lated venous outflow vessel was accessed, and a 7 [place] vascular sheath was placed. A fistulogram w as performed. A 0.035 inch Bentson guidewire and a 5 [place] Berenstein catheter were manipulated thr ough the vascular stent, with the guidewire subsequently placed within the IVC. A 10 mm x 4 cm angioplasty balloon was placed over the guidewire and ACETYLENE BURNER of the innominate vein, prox imal to the SVC, was performed, as well as ACETYLENE BURNER of the vascular stent. The balloon easily reached ful l profile. The fistulogram demonstrated no significant improvement in narrowing just distal to the s tent but proximal to the SVC within the left innominate vein. As a result, a 12 mm x 4 cm angioplast y balloon was placed, and ACETYLENE BURNER was again performed. The angioplasty balloon was removed. A venogram was performed, which did demonstrate mild improvement in the luminal diameter at the level of focal n arrowing, but with resolution of narrowing within the innominate vein stent. However, collateral ves sels did persist after ACETYLENE BURNER to 12 mm in diameter. The patient experienced no discomfort on full infla tion of the angioplasty balloon. The angioplasty balloon and guidewire were removed. The vascular sheath was removed. Hemostasis was achieved with direct pressure. The above findings were discussed with Jyoti Ludwig after this procedure. After a dry sterile dressing w as placed, the patient was discharge to his room, in stable condition. IMPRESSION: 1. 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 2. Percutaneous transluminal angioplasty to 12 mm in diameter with improvement in luminal diameter, but the prominent collaterals at the supraclavicular location did persist. Placement of and addition al innominate vein stent may be helpful for further evaluation. These findings were discussed with Dr. Montes on 04/11/2018 at the termination of this procedure. CODE CR POS: MARIA E
--- NOTE | 2018-04-11 14:10 | PDOC.PN ---
- Subjective Encounter Start Date: 04/11/18 Encounter Start Time: 14:09 Mr. Molina was seen today in follow-up of Acute respiratory failure. He says he is tired today, after going for the AV- fistulogram. - Objective Resuscitation Status: Resuscitation Status FULL:Full Resuscitation MAR Reviewed: Yes Vital Signs & Weight: Vital Signs (12 hours) Temp Pulse Resp BP Pulse Ox 04/11/18 11:44 97.7 F 60 20 130/65 92 L 04/11/18 10:44 62 20 99 04/11/18 08:00 98.9 F 62 20 135/76 99 04/11/18 04:45 98.5 F 81 18 147/84 H 94 L 04/11/18 02:50 93 L Weight Admit Weight 130 lb Weight 136 lb 1.6 oz Most Recent Monitor Data Heart Rate from ECG 105 NIBP 141/83 NIBP BP-Mean 93 Respiration from ECG 17 SpO2 99 I&O: 04/10/18 04/11/18 04/12/18 06:59 06:59 06:59 Intake Total 875 1030.5 Balance 875 1030.5 Result Diagrams: 04/11/18 05:00 04/11/18 05:00 Phys Exam - Physical Examination HEENT: PERRLA Respiratory: no wheezing, no rales, no rhonchi, clear to auscultation bilateral Cardiovascular: RRR, no significant murmur, no rub Gastrointestinal: soft, non-tender, no distention, positive bowel sounds Musculoskeletal: no edema Dx/Plan (1) Acute respiratory failure with hypoxia Code(s): J96.01 - ACUTE RESPIRATORY FAILURE WITH HYPOXIA Status: Acute Comment: He has self- extubated (2) Atrial flutter with rapid ventricular response Code(s): I48.92 - UNSPECIFIED ATRIAL FLUTTER Status: Acute Comment: Rate improved, continue Diltiazem gtt (3) Severe malnutrition Code(s): E43 - UNSPECIFIED SEVERE PROTEIN-CALORIE MALNUTRITION Status: Chronic (4) Physical deconditioning Code(s): R53.81 - OTHER MALAISE Status: Acute (5) COPD exacerbation Code(s): J44.1 - CHRONIC OBSTRUCTIVE PULMONARY DISEASE W (ACUTE) EXACERBATION Status: Acute Comment: Duonebs, Solumedrol, Zosyn (6) Hepatic encephalopathy Code(s): K72.90 - HEPATIC FAILURE, UNSPECIFIED WITHOUT COMA Status: Acute (7) Chronic hepatitis C Code(s): B18.2 - CHRONIC VIRAL HEPATITIS C Status: Chronic (8) Cirrhosis Code(s): K74.60 - UNSPECIFIED CIRRHOSIS OF LIVER Status: Chronic Qualifiers: Hepatic cirrhosis type: unspecified hepatic cirrhosis Comment: Continue Xifaxan, Lactulose (9) ESRD (end stage renal disease) on dialysis Code(s): N18.6 - END STAGE RENAL DISEASE; Z99.2 - DEPENDENCE ON RENAL DIALYSIS Status: Chronic Comment: HD per Renal service - Plan * Acute respiratory failure-improved * Atrial flutter- his heart rate has improved, and stable on Cardizem and Metoprolol * Severe Malnutrition. He has severe muscle wasting thought out, and a low albumin, continue dietary supplements, and encourage oral intake * Deconditioning- continue PT/OT- he is agreeable to shelter * Hepatic Encephalopathy- stable * start discharge planning ( patient says he will speak with Case Management today).
--- NOTE | 2018-04-11 14:27 | RAD ---
LEFT UPPER EXTREMITY ARTERIOVENOUS DIALYSIS FISTULOGRAM AND VENOGRAM TO SVC: Date: 04/10/18 HISTORY: Left upper extremity arteriovenous dialysis fistula. Patient presents with significant left upper ext remity edema. TECHNIQUE: After informed consent was obtained, the patient was placed on the angiography table in the supine po sition. The left upper extremity was meticulously prepped and draped in the usual sterile fashion. Sk in and subcutaneous tissues overlying the intended puncture site were infiltrated with buffered 1% li docaine for local anesthesia. The fistula was accessed utilizing micropuncture technique and 4 Australian introducer sheath was placed. Fistulogram and venogram to the SVC were performed. Images demonstrated severe tortuosity with serpig inous dual venous outflow to the level of the SVC. There is severe narrowing within a stent in the le ft innominate vein with venous structures predominantly dilated proximal to this region, including mu ltiple collateral vessels. A 6 Australian sheath was placed, followed by placement of a 5 Australian angled [place] catheter. A .035 Gl idewire and angled [place] catheter were manipulated to the level of the axillary vein, but the cathete r was unable to be manipulated further proximally due to tortuosity and redundancy of the fistula at the level of the antecubital fossa. The .035 Glidewire was manipulated into the SVC. Given the tor tuosity and redundancy of the fistula, an angioplasty balloon would most likely be unable to negotiat e the areas of tortuosity and as a result, the procedure was terminated. The patient will be brought back for angioplasty on 04/11/18 with more proximal access. The catheter was removed and hemostasis was achieved with direct pressure. The patient tolerated the procedure well and without immediate complication. A dry, sterile dressing was placed at catheter ent ry site. 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 This precludes adequate access and difficulty in negotiating the tortuosity. As a result, repeat e xamination with more proximal access will be performed on 04/11/18 with planned TUBE BUILDER of the in-stent s tenosis. Separate access was not performed on today's examination due to patient's difficulty in layi ng stationary for a prolonged period of time.
[2018-04-11] MEDS: Amoxicillin/Potassium Clav 500 MG TAB PO SCH (15:01)
--- NOTE | 2018-04-11 18:22 | PRG ---
DATE OF SERVICE: 04/11/2018 Haylee Molina has no complaints. PHYSICAL EXAMINATION: VITAL SIGNS: He is afebrile, heart rate 79, respiratory rate 15, oximetry is 90% on room air, blood pressure 133/74. GENERAL: I asked him where he was, he said here. He did know the day. LUNGS: His lungs are clear. HEART: Regular rhythm. ABDOMEN: Soft. LABORATORY DATA: White count 14.5, hemoglobin 8.5, platelets 267. Sodium 141, potassium 3.4, chlori de 102, bicarb 26, BUN 56, creatinine 6.76. IMPRESSION: 1. Status post respiratory failure with mechanical ventilation for his hepatic encephalopathy. 2. Ascites, status post diagnostic paracentesis. 3. Chronic obstructive pulmonary disease with a prolonged expiratory phase on intubation, clinically improved. 4. Cirrhosis. 5. Atrial fibrillation. PLAN: Continue supportive care. His prognosis is quite guarded. Antibiotics were discontinued yest erday. Prednisone dose can be decreased. He is no longer bronchospastic.
--- NOTE | 2018-04-11 18:37 | PDOC.CTH ---
Cardiology Progress Note - Subjective No new issues. His speech is a little slower today as compared to yesterday but he is oriented x 3. - Objective Vital Signs Temp Pulse Resp BP Pulse Ox 04/11/18 15:59 98.8 F 79 15 133/74 90 L 04/11/18 14:54 65 16 95 04/11/18 11:44 97.7 F 60 20 130/65 92 L 04/11/18 10:44 62 20 99 04/11/18 08:00 98.9 F 62 20 135/76 99 Admit Weight 130 lb Weight 136 lb 1.6 oz 04/10/18 04/11/18 04/12/18 06:59 06:59 06:59 Intake Total 875 1030.5 Balance 875 1030.5 - Physical Examination General/Neuro: alert & oriented x3 Neck: no JVD present Lungs: CTA, unlabored respirations Heart: other: (Irreg) Abdomen: NT/ND, other: (Ascitis) Extremities: + edema B (1+) - Telemetry Telemetry Rhythm: Afib, HR 60's. - Labs Result Diagrams: 04/11/18 05:00 04/11/18 05:00 Troponin/CKMB CK-MB (CK-2) 2.5 ng/mL (0-6.6) 04/01/18 07:26 Troponin I 0.098 ng/mL (< 0.028) H 04/01/18 12:26 - Assessment/Plan 1. Atrial flutter/Atrial fibrillation. 2. Hep C Cirrhosis 3. AMS, improved. 4. ESRD on HD 5. HTN PLAN: - Continue rate control. - Continue Diltiazem and metoprolol at current doses. - Consult EP to see if he is a candidate for an ablation for his flutter.
--- NOTE | 2018-04-11 19:03 | PRG ---
DATE OF SERVICE: 04/11/2018 SUBJECTIVE: The patient is a 67-year-old male being seen for end-stage renal disease, patient denies any nausea, vomiting, or chest pain. PHYSICAL EXAMINATION: GENERAL: Patient is awake and alert. VITAL SIGNS: Afebrile, pulse 69, breathing 16, blood pressure 133/74. GENERAL APPEARANCE AND MENTAL STATUS: Fair. HEAD/NECK: Normocephalic. Atraumatic. EYES: EOMI. No deformity. EARS: Clear. No ulcers. NOSE: Intact. No lesions. MOUTH: Clear. No discharge. THROAT: Clear. No exudate. LUNGS: Clear. No crackles. CARDIAC: S1, S2. No rub. ABDOMEN: Benign. BS+. GENITALIA/RECTUM: Rosario absent. BACK/EXTREMITIES: Edema 0+ Ulcer- NEUROLOGICAL: Alert and motor intact. SKIN: Rash- Bruise- LABORATORY DATA: Hemoglobin 8.5. ASSESSMENT AND PLAN: 1. Stage 6 chronic kidney disease, continue hemodialysis. 2. Hypertension, stable. 3. Anemia, stable. 4. Medication based on glomerular filtration rate are appropriate. We will plan dialysis tomorrow.
[2018-04-12] MEDS: Metoclopramide HCl 10 MG/2 ML VIAL IVP SCH ×4 (00:27→17:26)
[2018-04-12 06:07] LABS: Anion Gap 17 mmol/L (10-20); BUN (Urea Nitrogen) 71 mg/dL (8.4-25.7); Calc. Creatinine Clearance 8 mL/min (70-130); Calcium 7.6 mg/dL (7.8-10.44); Carbon Dioxide 25 mmol/L (23-31); Chloride 102 mmol/L (98-107); Estimated GFR-MDRD 8; Glucose 110 mg/dL (80-115); Potassium 4.2 mmol/L (3.5-5.1); Sodium 140 mmol/L (136-145)
[2018-04-12 06:10] LABS: Hemoglobin 8.3 g/dL (14.0-18.0); Mean Corpuscular Hemoglobin 29.7 pg (27.0-31.0); Mean Platelet Volume 7.5 fL (7.4-10.4); Platelet Count 261 thou/uL (130-400); RBC Distribution Width 17.6 % (11.5-14.5); Red Blood Cell (RBC) Count 2.78 mill/uL (4.70-6.10); White Blood Cell (WBC) Count 10.9 thou/uL (4.8-10.8)
[2018-04-12 06:13] LABS: Band 3 % (5-11); Lymphocytes 6 % (21-51); MDiff Complete? YES; Metamyelocyte 1 % (0-0); Monocytes 7 % (0-10); Neutrophil 83 % (42-75)
--- NOTE | 2018-04-12 08:40 | CON ---
DATE OF CONSULTATION: 04/11/2018 ELECTROPHYSIOLOGY CONSULTATION REPORT REFERRING PHYSICIAN: Doron Webb MD HISTORY OF PRESENT ILLNESS: I am seeing Mr. Molina at our [facility] ICU as electrophysiology independent marketing consultant. His problems are: 1. Persistent atrial flutter, occasionally with rapid ventricular rates. 2. Valvular heart disease with echo on the this admit shows LVEF 60%-65%, severe concentric LVH, normal in size RV with mildly reduced RV systolic function, moderate biatrial enlargement, moderate MR and severe tricuspid regurgitation seen with pulmonary hypertension at 100 Hgmm. 3. End-stage renal disease on hemodialysis. A. Left upper extremity AV fistula. 4. History of hepatitis C cirrhosis with mental status changes and pneumonia on admission. A. Ascites requiring paracentesis in the past. 5. Risk factors include hypertension. 6. History of COPD. ALLERGIES: None noted. MEDICATIONS AT HOME: Include dialyvite, [place], minoxidil, Sensipar, Norvasc, losartan, metoprolol, and warfarin. SUBJECTIVE: Mr. Molina is although a poor historian, history obtained from the chart and nursing staff. This gentleman was admitted on 04/01/2018. There are symptoms of confusion, possibly due to hepatic coma and was markedly short of breath. The patient was found to be in atrial flutter with rapid rates. Dr. Webb was consulted and eventually he was able to control the heart rate with the IV diltiazem now with p.o. diltiazem and metoprolol. He continues though in atrial flutter. He does not pass out. No stroke-like symptoms, no neurological deficits. He had issues with anemia and his hemoglobin levels dropped to low at 8.2, still lower than at 8.5. He is off warfarin currently. Rest of 12 point otherwise unremarkable. PAST MEDICAL HISTORY: As above. SOCIAL HISTORY: Patient denies smoking, ETOH or drug abuse. FAMILY HISTORY: Noncontributory. OBJECTIVE: VITAL SIGNS: Blood pressure is 133/74, heart rate 79. Respiratory rate is 15, temperature 98.8 degrees Fahrenheit. GENERAL: He is alert and oriented man x2, in no apparent distress. NECK: Supple. Jugular veins not distended. CHEST: Coarse without crackles. CARDIOVASCULAR: Heart sounds are regular to rate and rhythm. There is 3/6 holosystolic murmur at the left precordial area without radiation, worse with expiration. No gallop is noted. ABDOMEN: Benign. Bowel sounds positive. EXTREMITIES: Lower extremities without edema, clubbing or cyanosis. NEUROLOGIC: The patient nonfocal. MUSCULOSKELETAL: No joint deformity. SKIN: Without rash. DATABASE: EKGs reviewed. Initial EKG reveals 2:1 atrial flutter. Subsequent EKGs reveal better rate control with typical appearing flutter waves underlying. There is also 6-beat nonsustained ventricular tachycardia, wide complex rhythm is noted on EKG from 04/11/2018. ASSESSMENT AND PLAN: Mr. Molina is a 67-year-old man with end-stage renal and liver disease who also has significant valvular heart disease as noted above. He is presenting with atrial flutter, which was sustained, seemed to be in sinus rhythm, but now with diltiazem, his rates are controlled, does not seem to be markedly symptomatic. Complicating issues of significant liver disease and anemia will make anticoagulation options difficult. I discussed the treatment options, continued rate control is not an unreasonable option in view of his multiple comorbidities. As optimal therapy, we could consider radiofrequency ablation after CAR to ascertain no clots, even then unless he can go on Coumadin or anticoagulation afterwards, he still will present of some stroke risk halfway. I will follow up with you. Further discussion about this will be made if he improves his condition. We will discuss with Dr. Webb. TORI
[2018-04-12] MEDS: Rifaximin 550 MG TAB PO SCH ×2 (09:04→20:19)
[2018-04-12] MEDS: Metoprolol Tartrate 50 MG TAB PO SCH ×2 (09:04→20:19)
[2018-04-12] MEDS: predniSONE 20 MG TAB PO SCH (09:04)
[2018-04-12] MEDS: Aspirin 81 mg Enteric Coated Tablet PO SCH (09:04)
[2018-04-12] MEDS: Cinacalcet HCl 30 MG TAB PO SCH ×2 (09:04→20:19)
[2018-04-12] MEDS: Pantoprazole 40 MG VIAL IVP SCH ×2 (09:05→20:20)
--- NOTE | 2018-04-12 10:47 | PDOC.PN ---
- Subjective Encounter Start Date: 04/12/18 Encounter Start Time: 10:46 Mr. Molina was seen today in follow-up of acute respiratory failure. He does not have any complaints other than he is hungry. - Objective Resuscitation Status: Resuscitation Status FULL:Full Resuscitation MAR Reviewed: Yes Vital Signs & Weight: Vital Signs (12 hours) Temp Pulse Resp BP Pulse Ox 04/12/18 10:22 92 16 90 L 04/12/18 08:28 98.3 F 61 20 124/60 94 L 04/12/18 08:00 97.9 F 51 L 20 96 04/12/18 06:39 92 L 04/12/18 06:29 51 L 20 92 L 04/12/18 04:23 97.8 F 82 19 144/67 H 92 L 04/12/18 02:34 62 16 99 04/12/18 00:45 98.0 F 62 20 139/81 93 L Weight Admit Weight 130 lb Weight 137 lb 9 oz Most Recent Monitor Data Heart Rate from ECG 105 NIBP 141/83 NIBP BP-Mean 93 Respiration from ECG 17 SpO2 99 I&O: 04/11/18 04/12/18 04/13/18 06:59 06:59 06:59 Intake Total 1030.5 980 Output Total 150 300 Balance 1030.5 830 -300 Result Diagrams: 04/12/18 05:30 04/12/18 05:30 Phys Exam - Physical Examination HEENT: PERRLA Respiratory: no wheezing, no rales, no rhonchi, clear to auscultation bilateral Cardiovascular: RRR, no significant murmur, no rub Gastrointestinal: soft, non-tender, no distention, positive bowel sounds Musculoskeletal: no edema, edema present Dx/Plan (1) Acute respiratory failure with hypoxia Code(s): J96.01 - ACUTE RESPIRATORY FAILURE WITH HYPOXIA Status: Resolved Comment: He has self- extubated (2) Atrial flutter with rapid ventricular response Code(s): I48.92 - UNSPECIFIED ATRIAL FLUTTER Status: Acute (3) Severe malnutrition Code(s): E43 - UNSPECIFIED SEVERE PROTEIN-CALORIE MALNUTRITION Status: Chronic (4) Physical deconditioning Code(s): R53.81 - OTHER MALAISE Status: Acute (5) COPD exacerbation Code(s): J44.1 - CHRONIC OBSTRUCTIVE PULMONARY DISEASE W (ACUTE) EXACERBATION Status: Acute (6) Hepatic encephalopathy Code(s): K72.90 - HEPATIC FAILURE, UNSPECIFIED WITHOUT COMA Status: Acute (7) Chronic hepatitis C Code(s): B18.2 - CHRONIC VIRAL HEPATITIS C Status: Chronic (8) Cirrhosis Code(s): K74.60 - UNSPECIFIED CIRRHOSIS OF LIVER Status: Chronic Qualifiers: Hepatic cirrhosis type: unspecified hepatic cirrhosis Comment: Continue Xifaxan, Lactulose (9) ESRD (end stage renal disease) on dialysis Code(s): N18.6 - END STAGE RENAL DISEASE; Z99.2 - DEPENDENCE ON RENAL DIALYSIS Status: Chronic Comment: HD per Renal service - Plan * Acute respiratory failure- improved * Atrial Flutter- his heart rate is controlled with medication. He was seen by EP, and there is consideration for possible Ablation- await further recommendations from Cardiology * Malnutrition- continue to encourage oral intake, and supplements * COPD- stable * Hepatic ncephalopathy- stable * Deconditioning- continue PT/OT * ESRD- continue dialysis .
--- NOTE | 2018-04-12 12:26 | PRG ---
DATE OF SERVICE: 04/12/2018 SUBJECTIVE: This is a 67-year-old gentleman being seen for end-stage renal disease. The patient den ies any nausea, vomiting or chest pain. PHYSICAL EXAMINATION: GENERAL: Patient is awake, alert. VITAL SIGNS: Afebrile, pulse 92, breathing 16, blood pressure 124/60. OBJECTIVE: See above. Awake, alert, in no acute distress. GENERAL APPEARANCE AND MENTAL STATUS: Fair. HEAD/NECK: Normocephalic. Atraumatic. EYES: EOMI. No deformity. EARS: Clear. No ulcers. NOSE: Intact. No lesions. MOUTH: Clear. No discharge. THROAT: Clear. No exudate. LUNGS: Clear. No crackles. CARDIAC: S1, S2. No rub. ABDOMEN: Benign. BS+. GENITALIA/RECTUM: Rosario absent. BACK/EXTREMITIES: Edema 0+ Ulcer- NEUROLOGICAL: Alert and motor intact. SKIN: Rash- Bruise- LYMPHATICS: Edema- Ulcer- LABORATORY DATA: Hemoglobin 8.3, potassium 4.3. ASSESSMENT AND RECOMMENDATIONS: 1. Stage 6 chronic kidney disease, continue hemodialysis. 2. Hypertension, stable. 3. Anemia, stable. 4. Medication based on glomerular filtration rate are appropriate.
--- NOTE | 2018-04-12 15:06 | SPC ---
LEFT UPPER EXTREMITY ARTERIOVENOUS DIALYSIS FISTULOGRAM AND VENOGRAM TO SVC: DIE ATTACHER OF CENTRAL STENOSIS: 04/11/2018 HISTORY: Patient with left upper extremity arm swelling with left upper extremity arteriovenous dialysis fistu la. The patient had a fistulogram and a venogram performed one day ago, which demonstrated narrowing in the region of the innominate vein stent. Dilated serpiginous venous outflow was present. Attemp ts at manipulating the guide wire from access one day ago were unsuccessful due to tortuosity and the patient's inability to remain stationary. The patient was brought back today for more proximal acce ss in the left arm. TECHNIQUE: After informed consent was obtained, the patient was placed on the angiography table in the supine po sition. Limited sonographic evaluation of the left upper extremity was performed. An area overlying the left arm was marked and then meticulously prepped and draped in the usual sterile fashion. The skin and subcutaneous tissues were infiltrated with buffered 1% Lidocaine for local anesthesia. A di lated venous outflow vessel was accessed, and a 7 [place] vascular sheath was placed. A fistulogram w as performed. A 0.035 inch Bentson guidewire and a 5 [place] Berenstein catheter were manipulated thr ough the vascular stent, with the guidewire subsequently placed within the IVC. A 10 mm x 4 cm angioplasty balloon was placed over the guidewire and DIE ATTACHER of the innominate vein, prox imal to the SVC, was performed, as well as DIE ATTACHER of the vascular stent. The balloon easily reached ful l profile. The fistulogram demonstrated no significant improvement in narrowing just distal to the s tent but proximal to the SVC within the left innominate vein. As a result, a 12 mm x 4 cm angioplast y balloon was placed, and DIE ATTACHER was again performed. The angioplasty balloon was removed. A venogram was performed, which did demonstrate mild improvement in the luminal diameter at the level of focal n arrowing, but with resolution of narrowing within the innominate vein stent. However, collateral ves sels did persist after DIE ATTACHER to 12 mm in diameter. The patient experienced no discomfort on full infla tion of the angioplasty balloon. The angioplasty balloon and guidewire were removed. The vascular sheath was removed. Hemostasis was achieved with direct pressure. The above findings were discussed with Jyoti Ludwig after this procedure. After a dry sterile dressing w as placed, the patient was discharge to his room, in stable condition. IMPRESSION: 1. 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 2. Percutaneous transluminal angioplasty to 12 mm in diameter with improvement in luminal diameter, but the prominent collaterals at the supraclavicular location did persist. Placement of an innominat e vein stent may be helpful for further treatment. These findings were discussed with Dr. Montes on 04/11/2018 at the termination of this procedure. CODE CR
[2018-04-12] MEDS: Amoxicillin/Potassium Clav 500 MG TAB PO SCH (15:22)
--- NOTE | 2018-04-12 16:40 | PRG ---
DATE OF SERVICE: 04/12/2018 SUBJECTIVE: Mr. Molina is unchanged. He is in no distress. He has been dialyzed in the room to day. PHYSICAL EXAMINATION: VITAL SIGNS: He is afebrile, heart rate 67, respiratory rate 20, oximetry is 94% on 2 liters, blood pressure 117/66. LUNGS: Clear. HEART: Regular rhythm. ABDOMEN: Soft. LABORATORY DATA: White count 10.9, hemoglobin 8.3, platelets 261. Sodium 140, potassium 4.2, chlori de 102, bicarbonate 25, BUN 71, creatinine 8.12, glucose 110. IMPRESSION: 1. Status post intubation for hepatic encephalopathy. 2. Cirrhosis. 3. End-stage renal disease. 4. Atrial flutter/atrial fibrillation. 5. Hepatitis C. 6. History of hypertension. PLAN: Transfer to telemetry when bed becomes available. He is medically stable and does not really need to be in the Intermediate Care Unit anymore.
--- NOTE | 2018-04-12 17:58 | PDOC.CTH ---
Cardiology Progress Note - Subjective GHe is dong well. Better today. Speech not as slurred. He is undergoing dialysis on my evaluation. - Objective Vital Signs Temp Pulse Resp BP Pulse Ox 04/12/18 16:00 97.2 F L 69 18 125/68 04/12/18 13:02 67 20 94 L 04/12/18 12:39 98.2 F 73 20 117/66 91 L 04/12/18 10:22 92 16 90 L 04/12/18 08:28 98.3 F 61 20 124/60 94 L 04/12/18 08:00 97.9 F 51 L 20 96 04/12/18 06:39 92 L 04/12/18 06:29 51 L 20 92 L Admit Weight 130 lb Weight 137 lb 9 oz 04/11/18 04/12/18 04/13/18 06:59 06:59 06:59 Intake Total 1030.5 980 Output Total 150 300 Balance 1030.5 830 -300 - Physical Examination General/Neuro: alert & oriented x3, NAD Neck: no JVD present Lungs: unlabored respirations Heart: RRR Abdomen: NT/ND, other: (Mild ascitis. ) Extremities: other: (no edema) - Telemetry Telemetry Rhythm: NSR - Labs Result Diagrams: 04/12/18 05:30 04/12/18 05:30 Troponin/CKMB CK-MB (CK-2) 2.5 ng/mL (0-6.6) 04/01/18 07:26 Troponin I 0.098 ng/mL (< 0.028) H 04/01/18 12:26 - Assessment/Plan 1. Atrial flutter/Atrial fibrillation. Currently in si nus. 2. Hep C Cirrhosis 3. AMS, improved. 4. ESRD on HD 5. HTN PLAN: - Continue rate control. - Continue Diltiazem and metoprolol at current doses. - Appreciate EP recs. May have an ablation once more stable.
--- NOTE | 2018-04-12 18:16 | PRG ---
DATE OF SERVICE: 04/12/2018 DATE OF SERVICE: Mr. Molina seems to be doing better. Day by day, he has no new current symptom s. He has no dizziness, loss of consciousness, no stroke-like symptoms. His mental status seems to be back to normal. He is being dialyzed today. OBJECTIVE: VITAL SIGNS: Blood pressure is 117/66, heart rate 67, respirations 20, oxygen saturation 94%. GENERAL: He is alert and oriented man in no apparent distress. NECK: Supple. Jugular veins not distended. CHEST: Coarse without crackles. CARDIOVASCULAR: Heart sounds are regular to rate and rhythm. No murmur or gallop. ABDOMEN: Benign. Bowel sounds positive. Left upper extremity fistula is functional. LABORATORY DATA: White count is 7.9, hemoglobin 8.3, platelets 261. Sodium 140, potassium 4.2, BUN 71, creatinine is 8. 20. ASSESSMENT AND PLAN: Mr. Molina is a 67-year-old man with history of end-stage renal disease and endstage liver disease, history of hepatitis C, who presented with hepatic encephalopathy and now th at is improved. He is extubated. Significant valvular heart disease and pulmonary hypertension on t he echo performed. He has continued atrial flutter, which appears to be typical isthmus-dependent, on the other hand, hi s rates are well controlled on the current diltiazem CD and metoprolol tartrate 100 b.i.d. Should the re be further difficulty rate control, ablation could be attempted for the flutter circuit. He is nava flores a poor candidate for left atrial ablation attempts although anticoagulation will be difficult pr oposition in this gentleman with both liver and kidney failure. At this point, continue conservative measures.
[2018-04-13] MEDS: Metoclopramide HCl 10 MG/2 ML VIAL IVP SCH ×5 (00:15→23:44)
[2018-04-13 06:09] LABS: Eosinophils 1 % (0-10); Hemoglobin 8.7 g/dL (14.0-18.0); Lymphocytes 7 % (21-51); MDiff Complete? YES; Mean Corpuscular Hemoglobin 29.8 pg (27.0-31.0); Mean Corpuscular Volume 93.2 fL (78.0-98.0); Mean Platelet Volume 7.7 fL (7.4-10.4); Monocytes 7 % (0-10); Neutrophil 85 % (42-75); Platelet Count 259 thou/uL (130-400); RBC Distribution Width 17.3 % (11.5-14.5); Red Blood Cell (RBC) Count 2.93 mill/uL (4.70-6.10); White Blood Cell (WBC) Count 10.7 thou/uL (4.8-10.8)
[2018-04-13 06:13] LABS: Anion Gap 17 mmol/L (10-20); BUN (Urea Nitrogen) 37 mg/dL (8.4-25.7); Calc. Creatinine Clearance 11 mL/min (70-130); Carbon Dioxide 25 mmol/L (23-31); Chloride 102 mmol/L (98-107); Estimated GFR-MDRD 13; Glucose 104 mg/dL (80-115); Sodium 140 mmol/L (136-145)
[2018-04-13] MEDS: Pantoprazole 40 MG VIAL IVP SCH (08:13)
[2018-04-13] MEDS: Cinacalcet HCl 30 MG TAB PO SCH ×2 (08:14→20:58)
[2018-04-13] MEDS: Metoprolol Tartrate 50 MG TAB PO SCH ×2 (08:15→20:59)
[2018-04-13] MEDS: predniSONE 20 MG TAB PO SCH (08:15)
[2018-04-13] MEDS: Aspirin 81 mg Enteric Coated Tablet PO SCH (08:15)
--- NOTE | 2018-04-13 11:23 | PDOC.PN ---
- Subjective Encounter Start Date: 04/13/18 Encounter Start Time: 11:21 Mr. Molina was seen today in follow-up of acute respiratory failure. He does not have any complaints. He denies dyspnea. - Objective Resuscitation Status: Resuscitation Status FULL:Full Resuscitation MAR Reviewed: Yes Vital Signs & Weight: Vital Signs (12 hours) Temp Pulse Resp BP Pulse Ox 04/13/18 10:39 68 16 94 L 04/13/18 08:07 97.7 F 61 16 134/65 99 04/13/18 06:54 68 16 95 04/13/18 04:24 97.8 F 62 18 130/70 98 04/13/18 02:30 70 16 94 L 04/12/18 23:50 97 Weight Admit Weight 130 lb Weight 128 lb Most Recent Monitor Data Heart Rate from ECG 105 NIBP 141/83 NIBP BP-Mean 93 Respiration from ECG 17 SpO2 99 I&O: 04/12/18 04/13/18 04/14/18 06:59 06:59 06:59 Intake Total 980 900 Output Total 150 4500 Balance 830 -3600 Result Diagrams: 04/13/18 05:24 04/13/18 05:24 Phys Exam - Physical Examination HEENT: PERRLA Respiratory: no wheezing, no rales, no rhonchi, clear to auscultation bilateral Cardiovascular: RRR, no significant murmur, no rub Gastrointestinal: soft, non-tender, no distention, positive bowel sounds Musculoskeletal: edema present trace pedal edema Dx/Plan (1) Acute respiratory failure with hypoxia Code(s): J96.01 - ACUTE RESPIRATORY FAILURE WITH HYPOXIA Status: Resolved Comment: He has self- extubated (2) Atrial flutter with rapid ventricular response Code(s): I48.92 - UNSPECIFIED ATRIAL FLUTTER Status: Acute (3) Severe malnutrition Code(s): E43 - UNSPECIFIED SEVERE PROTEIN-CALORIE MALNUTRITION Status: Chronic (4) Physical deconditioning Code(s): R53.81 - OTHER MALAISE Status: Acute (5) COPD exacerbation Code(s): J44.1 - CHRONIC OBSTRUCTIVE PULMONARY DISEASE W (ACUTE) EXACERBATION Status: Acute (6) Hepatic encephalopathy Code(s): K72.90 - HEPATIC FAILURE, UNSPECIFIED WITHOUT COMA Status: Acute (7) Chronic hepatitis C Code(s): B18.2 - CHRONIC VIRAL HEPATITIS C Status: Chronic (8) Cirrhosis Code(s): K74.60 - UNSPECIFIED CIRRHOSIS OF LIVER Status: Chronic Qualifiers: Hepatic cirrhosis type: unspecified hepatic cirrhosis Comment: Continue Xifaxan, Lactulose (9) ESRD (end stage renal disease) on dialysis Code(s): N18.6 - END STAGE RENAL DISEASE; Z99.2 - DEPENDENCE ON RENAL DIALYSIS Status: Chronic Comment: HD per Renal service - Plan * Acute respiratory failure- improved. * Atrial Flutter- his heart rate has been in an acceptable range. * COPD- stable * Hepatic encephalopathy- improved * Malnutrition- continue nutritional supplementation. * He is stable for transfer to [facility]
--- NOTE | 2018-04-13 11:28 | PRG ---
DATE OF SERVICE: 04/13/2018 SUBJECTIVE: A 67-year-old gentleman being seen for end-stage renal disease. The patient denies any nausea, vomiting or chest pain. PHYSICAL EXAMINATION: GENERAL: The patient is awake, alert. VITAL SIGNS: Afebrile, pulse 60, breathing 16, blood pressure 130/65. OBJECTIVE: See above. Awake, alert, in no acute distress. GENERAL APPEARANCE AND MENTAL STATUS: Fair. HEAD/NECK: Normocephalic. Atraumatic. EYES: EOMI. No deformity. EARS: Clear. No ulcers. NOSE: Intact. No lesions. MOUTH: Clear. No discharge. THROAT: Clear. No exudate. LUNGS: Clear. No crackles. CARDIAC: S1, S2. No rub. ABDOMEN: Benign. BS+. GENITALIA/RECTUM: Rosario absent. BACK/EXTREMITIES: Edema 0+ Ulcer- NEUROLOGICAL: Alert and motor intact. SKIN: Rash- Bruise- LYMPHATICS: Edema- Ulcer- LABORATORY DATA: Show hemoglobin 8.7. ASSESSMENT AND RECOMMENDATIONS: 1. Stage 6 chronic kidney disease, continue hemodialysis. 2. Hypertension, stable. 3. Anemia, stable. 4. Medication based on glomerular filtration rate are appropriate.
[2018-04-13 11:38] VITALS: BMI 17.6
--- NOTE | 2018-04-13 14:36 | PDOC.CTH ---
Cardiology Progress Note - Subjective EP progress note: Patient seen and evaluated. No new cardiac concerns or complaints today. Denies heart racing, palpitations, chest pain/pressure, dizziness, or passing out. No stroke like symptoms. - Objective Vital Signs Temp Pulse Resp BP BP Pulse Ox 04/13/18 14:27 72 20 94 L 04/13/18 12:01 97.5 F L 61 16 123/67 94 L 04/13/18 10:39 68 16 94 L 04/13/18 08:07 97.7 F 61 16 134/65 99 04/13/18 06:54 68 16 95 04/13/18 04:24 97.8 F 62 18 130/70 98 Admit Weight 141 lb Weight 128 lb 04/12/18 04/13/18 04/14/18 06:59 06:59 06:59 Intake Total 980 900 Output Total 150 4500 Balance 830 -3600 - Physical Examination General/Neuro: alert & oriented x3, NAD Neck: carotid US brisk, no JVD present Lungs: other: (mild dyspnea) Heart: PMI normal Abdomen: NT/ND, soft - Telemetry Telemetry Rhythm: Sustained flutter, CVR - Labs Result Diagrams: 04/13/18 05:24 04/13/18 05:24 Troponin/CKMB CK-MB (CK-2) 2.5 ng/mL (0-6.6) 04/01/18 07:26 Troponin I 0.098 ng/mL (< 0.028) H 04/01/18 12:26 - Assessment/Plan 1. Typical appearing atrial flutter,intially RVR but now rate controlled 2. CHADS-VASC: 2 (age, HTN) OAC is indicated. Recent issues with anemia in addition to his liver disease make him high risk for complications with OAC. Currently off warfarin. 3. ESRD 4.Chronic hepatitis C 5. Cirrhosis 6. Hepatic encephalopathy Continue rate control stategy for now as he remains minimally symptomatic. If OAC is an option later, we could discuss him going for ablation but his chronic liver disease will always be concerning when considering OAC therapy.
[2018-04-13] MEDS ORDERED: PROVENTIL INHALER 6.7 G (200 INHALATIONS) INH PRN (15:09)
[2018-04-13] MEDS: Amoxicillin/Potassium Clav 500 MG TAB PO SCH (15:53)
--- NOTE | 2018-04-13 15:53 | PDOC.CTH ---
Cardiology Progress Note - Subjective No new issues or concerns. He feels a little bloated and getting SOB again. Abdominal girth increasing again. - Objective Vital Signs Temp Pulse Resp BP BP Pulse Ox 04/13/18 14:27 72 20 94 L 04/13/18 12:01 97.5 F L 61 16 123/67 94 L 04/13/18 10:39 68 16 94 L 04/13/18 08:07 97.7 F 61 16 134/65 99 04/13/18 06:54 68 16 95 04/13/18 04:24 97.8 F 62 18 130/70 98 Admit Weight 141 lb Weight 128 lb 04/12/18 04/13/18 04/14/18 06:59 06:59 06:59 Intake Total 980 900 Output Total 150 4500 Balance 830 -3600 - Physical Examination General/Neuro: alert & oriented x3, NAD Neck: no JVD present Lungs: CTA, unlabored respirations Heart: RRR Abdomen: other: (ascitis.) Extremities: other: (no edema) - Telemetry Telemetry Rhythm: NSR - Labs Result Diagrams: 04/13/18 05:24 04/13/18 05:24 Troponin/CKMB CK-MB (CK-2) 2.5 ng/mL (0-6.6) 04/01/18 07:26 Troponin I 0.098 ng/mL (< 0.028) H 04/01/18 12:26 - Assessment/Plan 1. Atrial flutter/Atrial fibrillation. Back in sinus rhythm now. 2. Hep C Cirrhosis 3. AMS, improved. 4. ESRD on HD 5. HTN PLAN: - Continue Diltiazem and metoprolol at current doses. - Appreciate EP recs. May have an ablation once more stable. - Poor candidate for full anticoagulation given cirrhosis, aspirin alone for CVA prophylaxis.
--- NOTE | 2018-04-13 16:10 | PRG ---
DATE OF SERVICE: 04/13/2018 SUBJECTIVE: Mr. Molina has no complaints. OBJECTIVE: VITAL SIGNS: His heart rates in the 60s-70s, he is afebrile. Oximetry is 94% on room air, blood pre ssure 123/67. LUNGS: Clear. HEART: Regular rhythm. ABDOMEN: Soft. He wants his nebulizer treatments more frequently, but he has already got them to q.4 hours and he is not wheezing on exam, so we will continue with this. An albuterol metered dose inhaler at the [facility]. IMPRESSION: 1. Cirrhosis. 2. End-stage renal disease. 3. Chronic obstructive pulmonary disease with bronchospasm on intubation. 4. Status post intubation for hepatic encephalopathy. PLAN: Continue current care per meter dose inhaler in the room with 20 mg prednisone for now.
[2018-04-14] MEDS: Ondansetron HCl/PF 4 MG/2 ML Vial IVP PRN ×2 (01:03→13:37)
[2018-04-14] MEDS: Metoclopramide HCl 10 MG/2 ML VIAL IVP SCH ×3 (05:02→19:12)
[2018-04-14] MEDS: Simethicone Chewable 80 MG TAB PO PRN (05:02)
[2018-04-14 05:56] LABS: Anion Gap 18 mmol/L (10-20); BUN (Urea Nitrogen) 53 mg/dL (8.4-25.7); Calc. Creatinine Clearance 9 mL/min (70-130); Calcium 7.7 mg/dL (7.8-10.44); Carbon Dioxide 21 mmol/L (23-31); Chloride 103 mmol/L (98-107); Estimated GFR-MDRD 10; Glucose 86 mg/dL (80-115); Potassium 4.4 mmol/L (3.5-5.1); Sodium 138 mmol/L (136-145)
[2018-04-14 06:38] LABS: Band 7 % (5-11); Eosinophils 3 % (0-10); Hemoglobin 9.5 g/dL (14.0-18.0); Lymphocytes 7 % (21-51); MDiff Complete? YES; Mean Corpuscular HGB CONC 32.4 g/dL (32.0-36.0); Mean Corpuscular Hemoglobin 30.6 pg (27.0-31.0); Mean Corpuscular Volume 94.4 fL (78.0-98.0); Mean Platelet Volume 8.1 fL (7.4-10.4); Monocytes 10 % (0-10); Neutrophil 73 % (42-75); Platelet Count 250 thou/uL (130-400); RBC Distribution Width 17.4 % (11.5-14.5); Red Blood Cell (RBC) Count 3.12 mill/uL (4.70-6.10); White Blood Cell (WBC) Count 11.7 thou/uL (4.8-10.8)
--- NOTE | 2018-04-14 10:46 | PDOC.PN ---
- Subjective Encounter Start Date: 04/14/18 Encounter Start Time: 10:44 Mr. Molina was seen today in follow-up acute respiratory failure. He is laying flat in bed, says he feels a little congested. He had some abdominal discomfort last night but this has improved. - Objective Resuscitation Status: Resuscitation Status FULL:Full Resuscitation MAR Reviewed: Yes Vital Signs & Weight: Vital Signs (12 hours) Temp Pulse Resp BP BP Pulse Ox 04/14/18 08:12 99.1 F 61 16 144/71 H 95 04/14/18 07:11 96 04/14/18 07:08 61 20 04/14/18 04:16 98.7 F 61 12 130/63 93 L 04/14/18 02:04 60 18 96 04/13/18 23:51 95 04/13/18 23:49 83 20 146/68 H 95 Weight Admit Weight 141 lb Weight 131 lb 1.6 oz Most Recent Monitor Data Heart Rate from ECG 105 NIBP 141/83 NIBP BP-Mean 93 Respiration from ECG 17 SpO2 99 I&O: 04/13/18 04/14/18 04/15/18 06:59 06:59 06:59 Intake Total 900 900 Output Total 4500 0 Balance -3600 900 Result Diagrams: 04/14/18 05:05 04/14/18 05:05 Phys Exam - Physical Examination HEENT: PERRLA + elevated JVD Respiratory: no wheezing, no rales, no rhonchi, clear to auscultation bilateral Cardiovascular: RRR, no rub 2/6 systolic murmur over precordium Gastrointestinal: soft, positive bowel sounds mildly distended, + diffuse tenderness no rebound, or guarding Musculoskeletal: edema present trace pedal edema Neurological: moves all 4 limbs Dx/Plan (1) Acute respiratory failure with hypoxia Code(s): J96.01 - ACUTE RESPIRATORY FAILURE WITH HYPOXIA Status: Resolved Comment: He has self- extubated (2) Atrial flutter with rapid ventricular response Code(s): I48.92 - UNSPECIFIED ATRIAL FLUTTER Status: Acute (3) Severe malnutrition Code(s): E43 - UNSPECIFIED SEVERE PROTEIN-CALORIE MALNUTRITION Status: Chronic (4) Physical deconditioning Code(s): R53.81 - OTHER MALAISE Status: Acute (5) COPD exacerbation Code(s): J44.1 - CHRONIC OBSTRUCTIVE PULMONARY DISEASE W (ACUTE) EXACERBATION Status: Acute (6) Hepatic encephalopathy Code(s): K72.90 - HEPATIC FAILURE, UNSPECIFIED WITHOUT COMA Status: Acute (7) Chronic hepatitis C Code(s): B18.2 - CHRONIC VIRAL HEPATITIS C Status: Chronic (8) Cirrhosis Code(s): K74.60 - UNSPECIFIED CIRRHOSIS OF LIVER Status: Chronic Qualifiers: Hepatic cirrhosis type: unspecified hepatic cirrhosis Comment: Continue Xifaxan, Lactulose (9) ESRD (end stage renal disease) on dialysis Code(s): N18.6 - END STAGE RENAL DISEASE; Z99.2 - DEPENDENCE ON RENAL DIALYSIS Status: Chronic Comment: HD per Renal service - Plan * Acute respiratory failure- improved * Atrial Flutter- his heart rate is controlled. Ablation will be reconsidered once he is more stable. He is not on anti-coagualtion due to advanced liver disease, and risk for fall * Cirrhosis with ascites- he is mildly volume overloaded, but this will need to be managed with fluid removal with dialysis. He does not appear so uncomfortable that he requires paracentesis. * COPD- stable * ESRD- dialysis today * Malnutrition- continue nutritional supplements * Deconditioning- continue PT/OT * Await transfer to Rehab
--- NOTE | 2018-04-14 11:08 | PRG ---
DATE OF SERVICE: 04/14/2018 SUBJECTIVE: This is a 67-year-old gentleman being seen for end-stage renal disease. PHYSICAL EXAMINATION: GENERAL: Patient denies any nausea, vomiting, chest pain. VITAL SIGNS: Pulse 61, breathing 16, blood pressure 134/71. OBJECTIVE: See above. Awake, alert, in no acute distress. GENERAL APPEARANCE AND MENTAL STATUS: Fair. HEAD/NECK: Normocephalic. Atraumatic. EYES: EOMI. No deformity. EARS: Clear. No ulcers. NOSE: Intact. No lesions. MOUTH: Clear. No discharge. THROAT: Clear. No exudate. LUNGS: Clear. No crackles. CARDIAC: S1, S2. No rub. ABDOMEN: Benign. BS+. GENITALIA/RECTUM: Rosario absent. BACK/EXTREMITIES: Edema 0+ Ulcer- NEUROLOGICAL: Alert and motor intact. SKIN: Rash- Bruise- LYMPHATICS: Edema- Ulcer- LABORATORY: Hemoglobin 9.5, creatinine 6.8. ASSESSMENT AND RECOMMENDATIONS: 1. Stage 3 chronic kidney disease, stable. 2. Hypertension, stable. 3. Anemia, stable. We will plan dialysis.
[2018-04-14] MEDS: Cinacalcet HCl 30 MG TAB PO SCH (11:24)
[2018-04-14] MEDS: Aspirin 81 mg Enteric Coated Tablet PO SCH (11:26)
[2018-04-14] MEDS: Metoprolol Tartrate 50 MG TAB PO SCH (11:27)
[2018-04-14 11:39] VITALS: BP 151/75; TEMP 98.1
--- NOTE | 2018-04-14 11:43 | PRG ---
DATE OF SERVICE: 04/14/2018 Haylee Molina is unchanged. He is not wheezing. He has no new complaints. PHYSICAL EXAMINATION: VITAL SIGNS: Stable. We will continue with 20 of prednisone and nebulizer treatments for presumed chronic obstructive pulm onary disease based on his exam when he was intubated. His hepatic encephalopathy is stable. His ci rrhosis and end-stage renal disease are not clinical issues right now. He is being dialyzed regularl y by the tapping machine operator. He is in sinus rhythm. I would think he would be a candidate for discharge s oon.
[2018-04-14] MEDS: predniSONE 20 MG TAB PO SCH (11:44)
--- NOTE | 2018-04-14 13:21 | PDOC.CTH ---
Cardiology Progress Note - Subjective EP progress note: Patient seen and evaluated. No new cardiac concerns or complaints today. Denies heart racing, palpitations, chest pain/pressure, dizziness, or passing out. No stroke like symptoms. +anxiety today. - Objective Vital Signs Temp Pulse Resp BP BP Pulse Ox 04/14/18 11:38 98.1 F 62 18 151/75 H 100 04/14/18 10:44 61 20 94 L 04/14/18 08:12 99.1 F 61 16 144/71 H 95 04/14/18 07:11 96 04/14/18 07:08 61 20 04/14/18 04:16 98.7 F 61 12 130/63 93 L 04/14/18 02:04 60 18 96 Admit Weight 141 lb Weight 131 lb 1.6 oz 04/13/18 04/14/18 04/15/18 06:59 06:59 06:59 Intake Total 900 900 200 Output Total 4500 0 Balance -3600 900 200 - Physical Examination General/Neuro: NAD, other: Neck: carotid US brisk, no JVD present Lungs: unlabored respirations Heart: other: (atrial flutter, CVR) Abdomen: NT/ND, soft - Labs Result Diagrams: 04/14/18 05:05 04/14/18 05:05 Troponin/CKMB CK-MB (CK-2) 2.5 ng/mL (0-6.6) 04/01/18 07:26 Troponin I 0.098 ng/mL (< 0.028) H 04/01/18 12:26 - Assessment/Plan 1. Atrial flutter,intially RVR but now rate controlled. intially typical in appearing, now seeing atypical as well 2. CHADS-VASC: 2 (age, HTN) OAC is indicated. Recent issues with anemia in addition to his liver disease make him high risk for complications with OAC. Currently off warfarin. 3. ESRD 4.Chronic hepatitis C 5. Cirrhosis 6. Hepatic encephalopathy Continue rate control stategy for now as he remains minimally symptomatic. If OAC is an option later, we could discuss him going for ablation but his chronic liver disease will always be concerning when considering OAC therapy. CAR/CV with porcelain enameling supervisor is a reasonable option at this point.
[2018-04-14] MEDS: Amoxicillin/Potassium Clav 500 MG TAB PO SCH (15:17)
--- NOTE | 2018-04-14 15:23 | PDOC.CTH ---
Cardiology Progress Note - Subjective He is much more distended today and more SOB. - Objective Vital Signs Temp Pulse Resp BP BP Pulse Ox 04/14/18 14:10 62 18 04/14/18 11:38 98.1 F 62 18 151/75 H 100 04/14/18 10:44 61 20 94 L 04/14/18 08:12 99.1 F 61 16 144/71 H 95 04/14/18 07:11 96 04/14/18 07:08 61 20 04/14/18 04:16 98.7 F 61 12 130/63 93 L Admit Weight 141 lb Weight 131 lb 1.6 oz 04/13/18 04/14/18 04/15/18 06:59 06:59 06:59 Intake Total 900 900 200 Output Total 4500 0 Balance -3600 900 200 - Physical Examination General/Neuro: alert & oriented x3, NAD Neck: no JVD present Lungs: CTA, unlabored respirations Heart: RRR Abdomen: other: (Tense ascitis.) Extremities: other: (no edema.) - Telemetry Telemetry Rhythm: Aflutter 4-1 AV cond. - Labs Result Diagrams: 04/14/18 05:05 04/14/18 05:05 Troponin/CKMB CK-MB (CK-2) 2.5 ng/mL (0-6.6) 04/01/18 07:26 Troponin I 0.098 ng/mL (< 0.028) H 04/01/18 12:26 - Assessment/Plan 1. Atrial flutter. Atypical. 2. Hep C Cirrhosis 3. AMS, improved. 4. ESRD on HD 5. HTN 6. Ascitis. PLAN: - Continue rate control Diltiazem and metoprolol at current doses. - If he becomes unstable may need to have Cardioversion. - He goes in and out of aflutter. - Poor candidate for full anticoagulation given cirrhosis, aspirin alone for CVA prophylaxis. - Patient is severely ill and would not be unexpected.
--- NOTE | 2018-04-14 21:18 | DIS ---
DATE OF ADMISSION: 04/01/2018 DATE OF DISCHARGE: 04/14/2018 PRIMARY CARE PHYSICIAN: The patient does not have a primary care physician. DISCHARGE DISPOSITION: To inpatient rehabilitation. DISCHARGE DIAGNOSES: 1. Acute respiratory failure with hypoxia. 2. Atrial flutter. 3. Hepatic encephalopathy, resolved. 4. End-stage renal disease, on hemodialysis. 5. Cirrhosis. 6. Chronic hepatitis C. 7. Chronic obstructive pulmonary disease. 8. Physical deconditioning. 9. Severe malnutrition. DISCHARGE MEDICATIONS: Include simethicone 80 mg q.6 hours, prednisone 10 mg daily, Protonix 40 mg t wice a day, lactulose 30 grams q.i.d., albuterol nebs q.4 hours as needed, Cardizem CD 180 mg daily, aspirin 81 mg daily, Augmentin 500 mg daily, Proventil 2 puffs q.i.d. as well as albuterol nebs p.r.n ., Tylenol 650 mg q.4 hours, Lopressor 250 mg twice daily, Sensipar 60 mg daily, folic acid, zinc and vitamin D3 one tablet daily. PROCEDURES DONE DURING ADMISSION: The patient had the following procedures. A CT scan of the brain showing no acute intracranial abnormalities. The patient had an echocardiogram in which the ejection fraction was estimated at 60% to 65%. There was atrial flutter at rest, severe concentric left vent ricular hypertrophy, normal size right ventricle and right systolic function, small pericolic effusio n without tamponade and there is some ascites. The patient had an AV shuntogram and fistulogram. 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 HOSPITAL COURSE: Mr. Molina is a pleasant 67-year-old gentleman, who presented to the hospital w ith shortness of breath and he was in diastolic heart failure initially and at that time he was found to be in atrial flutter. His heart rate was rapid and he was placed on Cardizem. He was diuresed. He was seen by Cardiology. During this time, that he was being evaluated for this, he became decomp ensated with regards to his mental status and vomited and this required him to be intubated due to hi m being unstable. There was initially some concern for possible gastrointestinal bleed and spontaneo us bacterial peritonitis. However, the SBP was ruled out and he did not appear to have any significa nt bleed. He was treated for hepatic encephalopathy with lactulose and his mentation improved. Aaron de leon this time of decompensation, he was intubated, but after this time that his mental status improved , he was able to be extubated. He is also on dialysis and volume status was aided via dialysis. His atrial flutter was controlled with medications. He was seen by Electrophysiology to see if he would benefit from ablation, but given his severe physical deconditioning and also his cirrhosis and risk for fall, it was felt that he would not be a good candidate for anticoagulation. Therefore, this was not initiated. He was severely deconditioned and for this reason, [facility]. He also has severe protein-calorie malnutrition. He was placed on a dietary supplement. This is likely due to access problems to food as well as some cachexia from his illness. If his general status improved, then ablation can be reconsidered at a l ater date. Otherwise, the patient is being discharged to inpatient rehabilitation. However, due to his complicated history and propensity to decompensate, readmission is highly likely.
[2018-04-15] MEDS ORDERED: predniSONE 20 MG TAB PO SCH (08:00)
== END 2018-04-14 20:30 | DRG 981 ==
LOC: ERS 06:53 → 2NO 09:22 → IMCU/EMU 04-02 16:37 → CCU 04-02 16:55 → IMCU/EMU 04-09 17:24 → 2NO 04-12 23:19
PROVIDERS: ADMIT Internal Medicine; ATTEND Internal Medicine
PROC: 5A1955Z Respiratory Ventilation, Greater than 96 Consecutive Hours (ICD-10-PCS; 2018-04-02)
PROC: 0BH17EZ Insertion of Endotracheal Airway into Trachea, Via Natural or Artificial Opening (ICD-10-PCS; 2018-04-02)
PROC: 06HM33Z Insertion of Infusion Device into Right Femoral Vein, Percutaneous Approach (ICD-10-PCS; 2018-04-02)
PROC: 0W9G3ZX Drainage of Peritoneal Cavity, Percutaneous Approach, Diagnostic (ICD-10-PCS; principal; 2018-04-03)
PROC: 5A1D70Z Performance of Urinary Filtration, Intermittent, Less than 6 Hours Per Day (ICD-10-PCS; 2018-04-04)
PROC: B51W1ZZ Fluoroscopy of Dialysis Shunt/Fistula using Low Osmolar Contrast (ICD-10-PCS; 2018-04-10)
PROC: 05743ZZ Dilation of Left Innominate Vein, Percutaneous Approach (ICD-10-PCS; 2018-04-11)
DX: J96.01 Acute respiratory failure with hypoxia (principal); N18.6 End stage renal disease; E43 Unspecified severe protein-calorie malnutrition; J18.9 Pneumonia, unspecified organism; R18.8 Other ascites; N17.9 Acute kidney failure, unspecified; J44.1 Chronic obstructive pulmonary disease with (acute) exacerbation; J44.0 Chronic obstructive pulmonary disease with (acute) lower respiratory infection; K56.7 Ileus, unspecified; T82.856A Stenosis of peripheral vascular stent, initial encounter; Z68.1 Body mass index [BMI] 19.9 or less, adult; I48.4 Atypical atrial flutter; I13.2 Hypertensive heart and chronic kidney disease with heart failure and with stage 5 chronic kidney disease, or end stage renal disease; I50.30 Unspecified diastolic (congestive) heart failure; I27.20 Pulmonary hypertension, unspecified; I08.1 Rheumatic disorders of both mitral and tricuspid valves; K74.69 Other cirrhosis of liver; B18.2 Chronic viral hepatitis C; K72.90 Hepatic failure, unspecified without coma; D63.1 Anemia in chronic kidney disease; R74.8 Abnormal levels of other serum enzymes; E87.5 Hyperkalemia; R11.10 Vomiting, unspecified; I48.91 Unspecified atrial fibrillation; Z99.2 Dependence on renal dialysis; Z99.81 Dependence on supplemental oxygen; Z95.1 Presence of aortocoronary bypass graft; Z87.891 Personal history of nicotine dependence; Z79.01 Long term (current) use of anticoagulants
CPT/HCPCS: 20501; 36415; 36901; 36902; 70450; 71045; 74018; 76080; 80048; 80053; 82140; 82271; 82805; 83735; 85007; 85025; 85027; 85060; 85610; 85730; 86706; 87340; 89051; 90935; 93005; 93010; 93306; 94002; 94003; 94640; 94760; A4216; C1725; C1769; C1887; C9113; G0257; G8978-GP-CL; G8979-GP-CJ; G8987-GO-CJ; G8988-GO-CI; G8996-GN-CK; G8997-GN-CK; J2060; J2250; J2354; J2405; J2543; J2704; J2765; J2920; J7050; J7506; J7611; J7620; J7644

== ENCOUNTER 2018-04-23 11:47 | Inpatient (IN) | payer MEDICARE, MEDICAID ==
[2018-04-23] MEDS ORDERED: fentaNYL Citrate/PF 2,000 MCG in Sodium Chloride 0.9% 60 ML IV SCH ×2 (12:23→16:14)
[2018-04-23 12:47] LABS: Actual Bicarbonate (HCO3a) 25.6 mEq/L (22-28); Analyzer IN Cardio ER; Calcium, Ionized 0.98 mmol/L (1.12-1.30); Carboxyhemoglobin (COHb) 0.4 gm% (0.0-3.0); Hemoglobin (Hb) 10.1 g/dL (14.0-18.0); O2 Tension (PaO2) 91.2 mmHg (> 80.0); Potassium - ABG Lab 4.25 mmol/L (3.70-5.30); pH, Arterial 7.47 (7.35-7.45)
[2018-04-23 12:59] LABS: Hemoglobin 9.2 g/dL (14.0-18.0); Mean Corpuscular Volume 93.7 fL (78.0-98.0); Mean Platelet Volume 8.2 fL (7.4-10.4); Platelet Count 224 thou/uL (130-400); RBC Distribution Width 18.6 % (11.5-14.5); Red Blood Cell (RBC) Count 3.16 mill/uL (4.70-6.10); White Blood Cell (WBC) Count 10.6 thou/uL (4.8-10.8)
[2018-04-23 13:11] LABS: ALT (SGPT) 18 U/L (8-55); AST (SGOT) 24 U/L (5-34); Albumin 2.7 g/dL (3.4-4.8); Alkaline Phosphatase 128 U/L (40-150); Anion Gap 17 mmol/L (10-20); BUN (Urea Nitrogen) 52 mg/dL (8.4-25.7); Bilirubin, Total 0.8 mg/dL (0.2-1.2); Calc. Creatinine Clearance 0 mL/min (70-130); Carbon Dioxide 31 mmol/L (23-31); Chloride 96 mmol/L (98-107); Estimated GFR-MDRD 11; Globulin 4.9 g/dL (2.4-3.5); Glucose 98 mg/dL (80-115); Potassium 4.3 mmol/L (3.5-5.1); Protein, Total 7.6 g/dL (5.8-8.1); Sodium 140 mmol/L (136-145)
[2018-04-23 13:14] LABS: CKMB 5.5 ng/mL (0-6.6); Troponin I 0.092 ng/mL (< 0.028)
[2018-04-23 13:19] LABS: Anisocytosis SLIGHT = 6-15 cells (100X) (0-5/hpf); Band 1 % (5-11); Lymphocytes 16 % (21-51); MDiff Complete? YES; Monocytes 6 % (0-10); Neutrophil 77 % (42-75); PLT Morphology Comment Appears Adequate; Polychromasia SLIGHT = 2-3 cells (100X) (0-2/hpf)
--- NOTE | 2018-04-23 14:12 | RAD ---
SINGLE VIEW OF THE CHEST: COMPARISON: 04/08/18. HISTORY: Unresponsive patient with respiratory failure. FINDINGS: A single view of the chest shows an enlarged but stable cardiomediastinal silhouette. The lines and tubes are unchanged in position. Vascular stent projects in the left subclavian region. Increased i nterstitial lung markings are present. There is obscurity of the left hemidiaphragm which may repres ent atelectasis of the left lung base. IMPRESSION: 1. Cardiomegaly. 2. Left basilar atelectasis versus infiltrate. POS: [facility]
[2018-04-23 15:21] LABS: Actual Bicarbonate (HCO3a) 28.8 mEq/L (22-28); Base Excess (BEa) 5.8 mEq/L (-2.0 to +3.0); CO2 Tension 35.7 mmHg (35.0-45.0); Calcium, Ionized 0.96 mmol/L (1.12-1.30); Carboxyhemoglobin (COHb) 1.4 gm% (0.0-3.0); Hemoglobin (Hb) 10.3 g/dL (14.0-18.0); O2 Tension (PaO2) 69.6 mmHg (> 80.0); Potassium - ABG Lab 4.35 mmol/L (3.70-5.30); pH, Arterial 7.53 (7.35-7.45)
[2018-04-23] MEDS ORDERED: Albuterol Sulfate 1.25 MG/3 ML NEB NEB PRN (15:35)
[2018-04-23 15:48] LABS: ALV-art Gradient 170.975 (0-20); Puncture Site RB
[2018-04-23] MEDS ORDERED: Acetaminophen 650 MG Suppository PR PRN (16:06)
[2018-04-23] MEDS ORDERED: Ondansetron HCl/PF 4 MG/2 ML Vial IVP PRN (16:06)
[2018-04-23] MEDS ORDERED: Ventilator Sedation Protocol 1 EACH FS ONE (16:06)
[2018-04-23] MEDS ORDERED: Ondansetron ODT 4 MG TAB PO PRN (16:06)
[2018-04-23] MEDS ORDERED: Ventilator Sedation Protocol 1 EACH FS SCH (16:06)
[2018-04-23] MEDS ORDERED: Fentanyl BOLUS 250 ML IVPB PRN (16:14)
[2018-04-23] MEDS ORDERED: DISCONTINUE PREVIOUS NARCOTIC PAIN MEDICATIONS AND BENZODIAZEPINES FS SCH (16:14)
[2018-04-23] MEDS ORDERED: Fentanyl CADD 250 ML IVPB SCH (16:14)
[2018-04-23] MEDS ORDERED: Lorazepam 2 MG/ML VIAL SLOW IVP PRN (16:14)
[2018-04-23] MEDS ORDERED: Propofol 1,000 MG/100 ML VIAL IV PRN (16:14)
[2018-04-23] MEDS ORDERED: Propofol BOLUS 1,000 MG/100 ML VIAL IV PRN (16:14)
[2018-04-23] MEDS: Sodium Chloride 0.9% 1,000 ML IV SCH (16:15)
--- NOTE | 2018-04-23 18:06 | HP ---
DATE OF ADMISSION: 04/23/2018 TIME OF SERVICE: 15:30. PRIMARY CARE PHYSICIAN: Didier Johnston M.D. CHIEF COMPLAINT: Altered mental status. HISTORY OF PRESENT ILLNESS: Mr. Molina is a 67-year-old gentleman, who has been over at [facility] and developed altered mental status and was transferred to this emergency [facility]. On arrival, he was obtunded. Ammonia level was noted to be 110. He was not protecting his airway, a nd subsequently, intubated and placed on the ventilator. I am unable to get any further history from the patient. The history was taken from the chart. He was last seen normal last night and was alert and oriented x4 per EMS report. He was lethargic th is morning on a [place] coma scale score of 4. He was only mumbling. He was satting 92% on room air on EMS arrival. No mention of fevers. No other events. Again, unable to give further history. PAST MEDICAL HISTORY: 1. Hepatitis C, chronic. 2. Cirrhosis of the liver. 3. Congestive heart failure. 4. Chronic obstructive pulmonary disease. 5. Essential hypertension. 6. End-stage renal disease, on hemodialysis. PAST SURGICAL HISTORY: 1. Coronary artery bypass graft. 2. Right inguinal hernia repair. 3. Dialysis fistula in the left upper extremity, 2007. 4. Left forearm. 5. Paracentesis, 04/2018. 6. Left subclavian stent placement, 03/2018. HOME MEDICATIONS: 1. DuoNeb q.4 hours. 2. Albuterol 2.5 mg nebulized q.1 hour p.r.n. 3. Augmentin 250/125 one p.o. q.p.m. 4. Tylenol as needed. 5. Aspirin 81 mg daily. 6. Calcium 1000 mg daily. 7. Clonidine 0.1 mg p.o. p.r.n. elevated blood pressure. 8. Diltiazem HCL 180 mg p.o. daily. 9. Prednisone 20 mg daily. 10. Sensipar 15 mg p.o. daily. 11. Lactulose 45 mL. 12. Metoprolol tartrate 100 mg p.o. b.i.d. 13. MiraLax 17 grams daily. 14. Bisacodyl 10 mg rectally as needed. 15. Senna 8.6 mg daily. ALLERGIES: NKDA. FAMILY HISTORY: Negative for clotting or bleeding disorder. No immune dysfunction. SOCIAL HISTORY: Significant for 2-3 cigarettes per day. He normally lives at home alone, has recent ly been at rehabilitation. He used to smoke more in the past. Denies alcohol use in the past. No h istory of drug use. REVIEW OF SYSTEMS: Not obtainable due to intubated and sedated status. PHYSICAL EXAMINATION: VITAL SIGNS: Temperature on arrival to the floor 98.0, current pulse 58, blood pressure 141/60, resp iratory rate 10 on the ventilator. Oxygen saturation 94%-99% on 40% FiO2, currently on a ventilator, tidal volume 450, rate of 10, pressure support of 10, PEEP of 5, and FiO2 of 40%. GENERAL: He is sedated, orally intubated. He is unresponsive, in no acute distress. HEENT: Normocephalic, atraumatic. No jaundice. Mucous membranes are moist. No visible lesion. No thrush. Oral endotracheal tube is in place. NECK: Supple, without lymphadenopathy, JVD, or thyromegaly. There are normal carotid upstrokes. I do not appreciate bruit. LUNGS: Clear bilaterally with good air movement. No chest excursion. No wheezes, no rales, no rhon chi. No prolonged expiratory phase. CARDIOVASCULAR: He has a normal cardiac and regular. Normal S1 and normal S2. I do not appreciate murmurs. ABDOMEN: Scaphoid is nontender, nondistended. He has got good bowel sounds in all 4 quadrants. EXTREMITIES: No cyanosis, no clubbing. He has got trace pedal edema. SKIN: Dry. He has got no rash or lesions. Left forearm fistula has a palpable thrill. NEUROLOGIC EXAM: Not testable. MUSCULOSKELETAL EXAM: Normal to inspection. Large joints appear normal. LABORATORY EVALUATION: Sodium is 140, potassium 4.3, chloride 96, bicarbonate 31, BUN 52, creatinine 6.36, glucose 98, calcium 8.0, total bilirubin 0.8, AST 24, ALT of 18. Ammonia was 103, CK-MB was 5 .5, troponin I was 0.092. Total protein 7.6 and albumin of 2.7. ABG initially showed pH 7.47, pCO2 of 36 and pO2 of 91. Repeat showed a pH of 7.53 with pCO2 of 35. CBC showed white count 10.6, hemoglobin 9.2, hematocrit 29.6, and platelet count is 224,000 with luigi rly normal differential with 1% bands. RADIOGRAPHIC STUDIES: Chest x-ray showed left lower lobe infiltrate with atelectasis. ASSESSMENT AND PLAN: 1. Metabolic encephalopathy, secondary to elevated ammonia. The patient does appear to have hepatic encephalopathy and is obtunded. 2. Acute hypoxemic respiratory failure. Patient is intubated on the ventilator currently. Dr. Back has been consulted and is following. 3. Essential hypertension. 4. Hepatitis C. 5. Cirrhosis. 6. End-stage renal disease, on hemodialysis. We will consult Nephrology. 7. Chronic obstructive pulmonary disease without acute exacerbation. Patient was here recently for chronic obstructive pulmonary disease exacerbation, on steroids and antibiotics. We will continue. 8. Left lower lobe infiltrate versus atelectasis. We will continue to monitor.
[2018-04-23] MEDS: Famotidine/PF 20 mg/2ml Vial SLOW IVP SCH (20:36)
--- NOTE | 2018-04-23 22:11 | CON ---
DATE OF CONSULTATION: 04/23/2018 CONSULTING PHYSICIAN: Dr. Wagoner. REASON FOR CONSULTATION: End-stage renal disease, evaluation and care. REASON FOR ADMISSION: Altered mentation. HISTORY OF PRESENT ILLNESS: A 67-year-old male with history of hepatitis C, cirrhosis, congestive he art failure, COPD, end-stage renal disease on hemodialysis Tuesday, Tuesday, and Tuesday. Care was t aken to the [facility] from rehab with altered mentation. The patient was hard to arouse to day and was sent to the hospital and was intubated and admitted to ICU. He is not able to give a goo d history. No nausea, vomiting, no fever or chills reported. No skin rash. No shortness of breath. No chest p ain or palpitations. PAST MEDICAL HISTORY: Positive for hepatitis C, cirrhosis, congestive heart failure, COPD, hypertens ion, end-stage renal disease. PAST SURGICAL HISTORY: CABG, right inguinal hernia repair, dialysis, left arm surgery, paracentesis, subclavian stent. HOME MEDICATIONS: DuoNeb, albuterol, Tylenol, aspirin, calcium, clonidine, prednisone, Sensipar, lac tulose, metoprolol, MiraLax, bisacodyl, and senna. ALLERGIES: No known drug allergies. FAMILY HISTORY: No history of kidney disease. SOCIAL HISTORY: Smokes 2-3 cigarettes per day. No alcohol or illicit drug abuse. REVIEW OF SYSTEMS: Could not be obtained as intubated. PHYSICAL EXAMINATION: GENERAL: This is a well-built male, intubated and seen in ICU. VITAL SIGNS: Temperature 98.0, pulse 60, respiratory rate 18, and blood pressure 150/71. HEENT: Intubated. HEART: S1 and S2 heard. RESPIRATORY: Clear. GI: Abdomen is soft. MUSCULOSKELETAL: 1+ edema. DERMATOLOGIC: No skin rash. NEUROLOGICAL: Intubated. LABORATORY DATA: Potassium 4.3, BUN 52, creatinine is 6.3, hemoglobin is 9.1. ASSESSMENT AND PLAN: 1. End-stage renal disease, no acute indication for dialysis. Continue dialysis Tuesday, Tuesday, and Tuesday. 2. His altered mentation, most likely hepatic encephalopathy given elevated ammonia level. 3. Anemia, mild. 4. Edema, controlled. 5. Hypertension, stable. 6. Altered mentation. 7. Acute hypoxic respiratory failure, intubated. 8. Plan is to continue dialysis Tuesday, Tuesday, and Tuesday as tolerated. Thank you for the consult.
[2018-04-24] MEDS: Sodium Chloride 0.9% 1,000 ML IV SCH (06:45)
[2018-04-24 07:18] LABS: Actual Bicarbonate (HCO3a) 27.7 mEq/L (22-28); Base Excess (BEa) 4.8 mEq/L (-2.0 to +3.0); CO2 Tension 34.4 mmHg (35.0-45.0); Calcium, Ionized 0.93 mmol/L (1.12-1.30); Carboxyhemoglobin (COHb) 1.3 gm% (0.0-3.0); Hemoglobin (Hb) 9.4 g/dL (14.0-18.0); O2 Tension (PaO2) 109.1 mmHg (> 80.0); pH, Arterial 7.52 (7.35-7.45)
[2018-04-24] MEDS: Cinacalcet HCl 30 MG TAB PO SCH ×2 (07:24→21:48)
[2018-04-24] MEDS: Aspirin 81 mg Enteric Coated Tablet PO SCH (08:42)
[2018-04-24] MEDS ORDERED: Eucerin (Mineral Oil/Petrolatum,White) 30 gm Jar TOP PRN (09:10)
[2018-04-24] MEDS ORDERED: Calcium Carbonate 500 MG ChewTAB PO PRN (09:10)
[2018-04-24] MEDS ORDERED: Sodium Chloride 0.65% Nasal 44 ML BOT EA NARE PRN (09:10)
[2018-04-24] MEDS ORDERED: Artificial Tears 18 DROP/0.9 ML EA EYE PRN (09:10)
[2018-04-24] MEDS ORDERED: Simethicone Chewable 80 MG TAB PO PRN (09:11)
--- NOTE | 2018-04-24 10:53 | PRG ---
DATE OF SERVICE: 04/24/2018 SUBJECTIVE: This 67-year-old gentleman being seen for end-stage renal disease. The patient remains intubated. OBJECTIVE: GENERAL: Patient is resting. VITAL SIGNS: Afebrile, pulse 75, breathing 16, blood pressure 131/77. GENERAL APPEARANCE AND MENTAL STATUS: Fair. HEAD/NECK: Normocephalic. Atraumatic. EYES: EOMI. No deformity. EARS: Clear. No ulcers. NOSE: Intact. No lesions. MOUTH: Clear. No discharge. THROAT: Clear. No exudate. LUNGS: Clear. No crackles. CARDIAC: S1, S2. No rub. ABDOMEN: Benign. BS+. GENITALIA/RECTUM: Rosario absent. BACK/EXTREMITIES: Edema 0+ Ulcer- NEUROLOGICAL: Alert and motor intact. SKIN: Rash- Bruise- LYMPHATICS: Edema- Ulcer- LABORATORY: Labs show hemoglobin 9.2, creatinine is 6.3. ASSESSMENT AND RECOMMENDATIONS: 1. Stage 6 chronic kidney disease, plan dialysis. 2. Hyperkalemia, stable. 3. Anemia, stable. 4. Medication based on glomerular filtration rate are appropriate. MTDD
--- NOTE | 2018-04-24 11:04 | PDOC.PN ---
- Subjective Encounter Start Date: 04/24/18 Encounter Start Time: 10:10 -: old records requested/rev pt is intubated, not following command, tachycardic - Objective Resuscitation Status: Resuscitation Status FULL:Full Resuscitation MAR Reviewed: Yes Vital Signs & Weight: Vital Signs (12 hours) Temp Pulse Resp BP Pulse Ox 04/24/18 10:21 95 131/77 04/24/18 10:20 92 16 100 04/24/18 10:00 14 04/24/18 08:00 11 L 04/24/18 07:50 11 L 100 04/24/18 07:00 98.7 F 04/24/18 06:43 95 141/77 H 04/24/18 06:42 95 21 H 100 04/24/18 06:00 12 04/24/18 04:00 99.1 F 16 04/24/18 02:16 99 17 98 04/24/18 02:00 14 04/24/18 00:00 98.5 F 12 Weight Admit Weight 126 lb 15.78 oz Weight 125 lb 10.616 oz Most Recent Monitor Data Heart Rate from ECG 99 NIBP 131/77 NIBP BP-Mean 88 Respiration from ECG 18 SpO2 100 I&O: 04/23/18 04/24/18 04/25/18 06:59 06:59 06:59 Intake Total 878 140 Output Total 750 Balance 128 140 Result Diagrams: 04/23/18 11:51 04/23/18 11:51 Radiology Reviewed by me: Yes (chest xray reviewed by me) EKG Reviewed by me: Yes (paf) Phys Exam - Physical Examination Constitutional: NAD on vent HEENT: PERRLA, sclera anicteric Neck: no JVD, supple Respiratory: no wheezing, no rales, no rhonchi anteriorly Cardiovascular: no significant murmur, irregular Gastrointestinal: soft, no distention, positive bowel sounds Musculoskeletal: no edema, pulses present unable to assess Lymphatic: no nodes Deviation from normal: unable to assess Skin: no rash, normal turgor Dx/Plan (1) Acute respiratory failure with hypoxia Code(s): J96.01 - ACUTE RESPIRATORY FAILURE WITH HYPOXIA Status: Acute Comment: (2) Hepatic encephalopathy Code(s): K72.90 - HEPATIC FAILURE, UNSPECIFIED WITHOUT COMA Status: Acute (3) Anemia of renal disease Code(s): D63.1 - ANEMIA IN CHRONIC KIDNEY DISEASE Status: Chronic (4) Chronic hepatitis C Code(s): B18.2 - CHRONIC VIRAL HEPATITIS C Status: Chronic (5) Cirrhosis of liver Code(s): K74.60 - UNSPECIFIED CIRRHOSIS OF LIVER Status: Chronic (6) ESRD (end stage renal disease) on dialysis Code(s): N18.6 - END STAGE RENAL DISEASE; Z99.2 - DEPENDENCE ON RENAL DIALYSIS Status: Chronic Comment: HD per Renal service (7) Elevated troponin Code(s): R74.8 - ABNORMAL LEVELS OF OTHER SERUM ENZYMES Status: Chronic (8) GERD (gastroesophageal reflux disease) Code(s): K21.9 - GASTRO-ESOPHAGEAL REFLUX DISEASE WITHOUT ESOPHAGITIS Status: Chronic (9) PAF (paroxysmal atrial fibrillation) Code(s): I48.0 - PAROXYSMAL ATRIAL FIBRILLATION Status: Chronic (10) Secondary hyperparathyroidism of renal origin Code(s): N25.81 - SECONDARY HYPERPARATHYROIDISM OF RENAL ORIGIN Status: Chronic - Plan cont current plan of care * start lactulose * selected home medication reconciled * vent as per pulmonary * will consult palliative care * prognosis is poor * medication reviewed as below * symptomatic treatment * add rifaximin * HD as per nephrology * change cardizem cd to cardizem 60 mg q 8 hourly. Review of Systems - Review of Systems Other: unable to review due to intubated status - Medications/Allergies Allergies/Adverse Reactions: Allergies Allergy/AdvReac Type Severity Reaction Status Date / Time No Known Allergies Allergy Verified 04/23/18 13:06 Medications: Current Medications Acetaminophen (Tylenol) 650 mg OH Q4H PRN PRN Reason: Headache/Fever or Pain Albuterol Sulfate (Albuterol Sulfate) 1.25 mg NEB Q1H PRN PRN Reason: Dyspnea/Wheezing/SOB Albuterol/Ipratropium (Duoneb) 3 ml NEB V5AP-OF ANGELA Last Admin: 04/24/18 10:20 Dose: 3 ml Artificial Tears (Tears Naturale) 0 drop EA EYE PRN PRN PRN Reason: Dry Eyes Aspirin (Ecotrin) 81 mg PO DAILY ANGELA Last Admin: 04/24/18 08:42 Dose: 81 mg Calcium Carbonate (Tums) 1,000 mg PO Q4H PRN PRN Reason: Heartburn or Indigestion Cinacalcet (Sensipar) 60 mg PO DAILY-AC [facility] Last Admin: 04/24/18 07:24 Dose: 60 mg Diltiazem HCl (Cardizem) 60 mg PER TUBE Q8HR ANGELA Famotidine (Pepcid) 20 mg SLOW IVP 2100 ANGELA Last Admin: 04/23/18 20:36 Dose: 20 mg Sodium Chloride (Normal Saline 0.9%) 1,000 mls @ 100 mls/hr IV .Q10H ANGELA Last Admin: 04/24/18 06:45 Dose: 1,000 mls Fentanyl (Fentanyl Cadd) 250 mls @ 0 mls/hr IVPB INF ANGELA; Protocol Stop: 05/23/18 16:14 Fentanyl Citrate 2,000 mcg/ (Sodium Chloride) 100 mls @ 0 mls/hr IV INF ANGELA; Protocol Stop: 05/23/18 16:14 Fentanyl Citrate (Fentanyl Bolus) 250 mls @ 0 mls/hr IVPB PRN PRN PRN Reason: Breakthrough pain/agitation Stop: 05/23/18 16:14 Lactulose (Lactulose) 30 gm PO QID [facility] Lorazepam (Ativan) 2 mg SLOW IVP Q1H PRN PRN Reason: Breakthrough agitation Stop: 05/23/18 16:14 Metoprolol Tartrate (Lopressor) 25 mg PO BID ANGELA Mineral Oil/White Petrolatum (Eucerin Cream) 0 gm TOP BIDPRN PRN PRN Reason: Dry Skin Morphine Sulfate (Morphine Sulfate) 2 mg SLOW IVP Q1H PRN PRN Reason: BREAKTHROUGH PAIN/AGITATION Stop: 05/23/18 16:14 Discontinue Previous Narcotic Pain Medications And Benzodiazepines 1 each FS .ONE [facility] Stop: 05/23/18 16:14 Ondansetron HCl (Zofran Odt) 4 mg PO Q6H PRN PRN Reason: Nausea/Vomiting Ondansetron HCl (Zofran) 4 mg IVP Q6H PRN PRN Reason: Nausea/Vomiting Folic Ac/Vit Bcomp,C /Zn/Vit D3 [ Dialyvite 800/Ultra D] 1 Table 1 each PO DAILY [facility] Propofol (Diprivan) 1,000 mg IV INF PRN; Protocol PRN Reason: TO ACHIEVE GOAL RASS Stop: 05/23/18 16:14 Propofol (Diprivan Bolus) 20 mg IV Q5MIN PRN PRN Reason: BREAKTHROUGH AGITATION Stop: 05/23/18 16:14 Rifaximin (Xifaxan) 550 mg PO BID ANGELA Simethicone (Mylicon Chewable) 80 mg PO Q6H PRN PRN Reason: Gas Pain Sodium Chloride ([place] Nasal [place] 0.65%) 0 ml EA NARE QIDPRN PRN PRN Reason: Nasal Congestion
[2018-04-24] MEDS ORDERED: Sodium Chloride 0.9% 1,000 ML IV SCH (12:03)
[2018-04-24 16:05] LABS: BF Color Yellow; BF RBC Count - Manual 2600 /cumm; Body Fluid Source PARACENTESIS FLD; Clarity Hazy (Clear); Tube # EDTA; WBC/NonHematic-Auto 395 /cumm
[2018-04-24 16:38] LABS: BF Segmented Neutrophils 20 %; Cell Count Non Hematic 71 %; Lymphocytes 9 %
--- NOTE | 2018-04-24 16:47 | ULT ---
LIMITED ABDOMINAL ULTRASOUND: INDICATIONS: Concern for spontaneous bacterial peritonitis. FINDINGS: There is a moderate amount of ascites present. There is a cirrhotic morphology to the liver. IMPRESSION: Moderate ascites. POS: [facility]
--- NOTE | 2018-04-24 17:08 | ULT ---
HEPATIC DOPPLER EVALUATION: INDICATIONS: Hepatoma screening. TECHNIQUE: [place]-scale, color Doppler, and vascular duplex with spectral analysis was performed of the liver and hepatic vasculature. FINDINGS: The visualized aspects of the pancreas are unremarkable. There is moderate ascites. There is a cirrhotic morphology of the liver. No focal hepatic lesion is evident. There is a stent present between the right hepatic vein, going into the main portal vein, that is patent, consistent w ith a TIPS stent. There is appropriate phasicity within the IVC. There is adherent gallbladder slud ge balls versus polyps involving the gallbladder. There is appropriate flow within the main portal v ein. There is appropriate flow within the hepatic artery. There is appropriate flow within the hepa tic veins. There is appropriate flow within the splenic artery and splenic vein. The gallbladder wall measures 4.4 mm. No sonographic Rodriguez sign is reported. The common bile duct measures 4 mm. The spleen measures 9.4 cm. IMPRESSION: 1. Cirrhotic morphology of the liver with moderate ascites. 2. Appropriate hepatopetal flow is seen. 3. The transjugular intrahepatic portosystemic shunt between the right hepatic vein and portal vein i s patent. 4. Mild gallbladder wall thickening, which may be related to the patient's cirrhosis. There are adh erent sludge balls versus tiny polyps involving the gallbladder. One of the largest lesions measures 1 cm, within the gallbladder body. Additional smaller lesion is seen within the proximal body, billy uring 7 mm. POS: [facility]
--- NOTE | 2018-04-24 17:57 | ULT ---
ULTRASOUND GUIDED DIAGNOSTIC PARACENTESIS: INDICATIONS: Concern for spontaneous bacterial peritonitis. TECHNIQUE: Pre-procedure ultrasound demonstrated a large fluid collection in the right lower quadrant of the abd omen. The site overlying the right lower quadrant was prepped and draped in the usual sterile fashio n. Buffered 1% Lidocaine was administered to the overlying subcutaneous tissues. Under ultrasound g uidance, a 5 [place] Yueh catheter was guided down into the large collection in the right lower quadra nt. There was spontaneous return of normal appearing peritoneal fluid, and 60 mL of yellowish type p eritoneal fluid was removed. The catheter was then pulled. Pressure was held at the site until hemo stasis was obtained. A bandage was placed overlying the paracentesis site. The patient tolerated th e procedure without difficulty. IMPRESSION: Successful ultrasound guided right lower quadrant diagnostic paracentesis with removal of 60 mL of ye llowish appearing peritoneal fluid. The patient tolerated the procedure without difficulty. POS: [facility]
[2018-04-24] MEDS: Metoprolol Tartrate 25 MG TAB PO SCH (21:47)
[2018-04-24] MEDS: Famotidine/PF 20 mg/2ml Vial SLOW IVP SCH (21:47)
[2018-04-24] MEDS: Rifaximin 550 MG TAB PO SCH (21:47)
--- NOTE | 2018-04-24 21:53 | CON ---
DATE OF CONSULTATION: 04/24/2018 HISTORY OF PRESENT ILLNESS: Haylee Molnia is a 67-year-old male, well known to me from a recent admission. He was intubated by me for hepatic encephalopathy last admission. Apparently, he presented yesterday afternoon with altered mental status, requiring intubation. He is not receiving any sedation. He is still obtunded. His ammonia level was 110. PAST MEDICAL HISTORY: Remarkable for: 1. Cirrhosis. 2. End-stage renal disease, on dialysis. 3. Chronic obstructive pulmonary disease with bronchospasm when he was intubated last admission. 4. Hypertension. 5. History of coronary artery bypass grafting. 6. History of a herniorrhaphy. 7. History of vascular access procedures. 8. History of a paracentesis in the past. 9. History of subclavian stent. SOCIAL HISTORY: He is a former smoker. It is unclear whether he was a drinker. FAMILY HISTORY: Negative for lung disease in early age. REVIEW OF SYSTEMS: A 10-point review of systems is not obtainable. He is obtunded. PHYSICAL EXAMINATION: VITAL SIGNS: Heart rate is 101, blood pressure 134/89, respiratory rate 17, oximetry is 100. Intake and output is positive 128. HEENT: Pupils are equal. Sclerae is anicteric. He does not open his eyes to stimulation. LUNGS: Clear. HEART: Regular rate and rhythm. ABDOMEN: Soft. EXTREMITIES: Without clubbing, cyanosis or edema. LABORATORY DATA: No lab today except a blood gas, pH of 7.52, CO2 of 34, pO2 of 109. Sodium 139, po tassium 4.5, chloride 97. Ionized calcium 9.93. IMPRESSION: Respiratory failure associated with recurrent hepatic encephalopathy. Notified Gastroe nterology of his presence. We will avoid sedatives other than Precedex, which worked well last visit . When we are weaning him from mechanical ventilation, he received ipratropium and albuterol nebuliz er treatments. He is already on Xifaxan, and I have increased the frequency of his lactulose adminis tration. Critical care time was 30 minutes.
[2018-04-25 03:45] LABS: Band 4 % (5-11); Lymphocytes 9 % (21-51); MDiff Complete? YES; Mean Corpuscular HGB CONC 32.1 g/dL (32.0-36.0); Mean Corpuscular Hemoglobin 29.8 pg (27.0-31.0); Mean Corpuscular Volume 92.8 fL (78.0-98.0); Mean Platelet Volume 7.7 fL (7.4-10.4); Monocytes 10 % (0-10); Neutrophil 77 % (42-75); PLT Morphology Comment Appears Adequate; Platelet Count 154 thou/uL (130-400); RBC Distribution Width 18.1 % (11.5-14.5); Red Blood Cell (RBC) Count 2.69 mill/uL (4.70-6.10); White Blood Cell (WBC) Count 7.5 thou/uL (4.8-10.8)
[2018-04-25 03:55] LABS: ALT (SGPT) 11 U/L (8-55); AST (SGOT) 20 U/L (5-34); Albumin 2.3 g/dL (3.4-4.8); Alkaline Phosphatase 115 U/L (40-150); Anion Gap 17 mmol/L (10-20); BUN (Urea Nitrogen) 39 mg/dL (8.4-25.7); Calc. Creatinine Clearance 12 mL/min (70-130); Calcium 7.8 mg/dL (7.8-10.44); Carbon Dioxide 26 mmol/L (23-31); Chloride 100 mmol/L (98-107); Estimated GFR-MDRD 14; Globulin 4.3 g/dL (2.4-3.5); Glucose 91 mg/dL (80-115); Potassium 3.9 mmol/L (3.5-5.1); Protein, Total 6.6 g/dL (5.8-8.1); Sodium 139 mmol/L (136-145)
[2018-04-25 06:42] LABS: Actual Bicarbonate (HCO3a) 24.2 mEq/L (22-28); Base Excess (BEa) 2.1 mEq/L (-2.0 to +3.0); CO2 Tension 28.6 mmHg (35.0-45.0); Calcium, Ionized 0.97 mmol/L (1.12-1.30); Carboxyhemoglobin (COHb) 1.3 gm% (0.0-3.0); Hemoglobin (Hb) 8.9 g/dL (14.0-18.0); O2 Tension (PaO2) 109.3 mmHg (> 80.0); Potassium - ABG Lab 3.86 mmol/L (3.70-5.30)
[2018-04-25 06:43] LABS: pH, Arterial 7.55 (7.35-7.45)
[2018-04-25 06:44] LABS: Puncture Site RRA
--- NOTE | 2018-04-25 07:35 | CON ---
DATE OF CONSULTATION: 04/24/2018 REASON FOR CONSULTATION: Hepatic encephalopathy. HISTORY OF PRESENT ILLNESS: Mr. Molina is a 67-year-old gentleman, who was transferred back from rehab with obtunded and was intubated for airway recovery. He has cirrhosis secondary to hepatitis C, apparently had some emesis that was blood tinged last admission when he came on 04/02/2018. He wa s placed on a PPI. He had a diagnostic paracentesis. He underwent a diagnostic paracentesis that sh owed white blood cells of 255, only 3% segs. There are no signs of SBP. It was felt, at that time, that his altered mental status was not likely a GI event by Dr. De Los Santos. However, throughout the hospit alization, he had elevated ammonia; this was treated with lactulose. AFP for hepatoma screening, las t in 2014 that was normal. Abdomen and pelvis CT on 04/04/2016, was notable for cirrhosis, cholelith iasis. No hepatoma at that time. He has had no further screening for hepatomas at least in the hosp ital. During hospitalization, he had ileus, was on Reglan for a time that was stopped and was discha rged on 04/14/2018. Simethicone, prednisone, Protonix, lactulose, Cardizem, Augmentin, Proventil, Lo pressor, Sensipar, folic acid, zinc, vitamin D. On arrival here, he is obtunded, ammonia was 110. H e was not placed on airway and intubated for that. We were unable to get any other history from him at this time. He was actually 90% on room air on arrival with EMS. He was only mumbling. Apparentl y, he has been over at rehab, since he left here on , and was having issues with elevated a mmonia levels. PAST MEDICAL HISTORY: 1. End-stage renal disease, on dialysis. 2. Cirrhosis. 3. Hepatitis C, which has not been eradicated. 4. Congestive heart failure. 5. Chronic obstructive pulmonary disease. 6. Essential hypertension. PAST MEDICAL HISTORY: Cardiovascular grafting, right inguinal hernia repair, possible fistula in the left upper extremity and left forearm in the past. Paracentesis, last admission, which was negative for SBP. Left subclavian stent placement in 2018. MEDICINES PRIOR TO ADMISSION: DuoNeb, albuterol, Augmentin, aspirin, Tylenol, calcium, clonidine, di ltiazem, prednisone, Sensipar, lactulose, metoprolol, MiraLax, bisacodyl, senna. PRESENT MEDICATIONS: Tylenol, albuterol, DuoNeb, , Ecotrin, Tums, Sensipar, dexmedetomidine, di ltiazem, famotidine, lactulose, metoprolol, morphine p.r.n., Zofran, Xifaxan, simethicone. ALLERGIES: None known. SOCIAL HISTORY: Unable to obtain. PHYSICAL EXAMINATION: GENERAL: The patient is cachectic. LUNGS: Clear. There is no JVD. HEART: Regular rate and rhythm. ABDOMEN: Soft, nontender. No fluid wave. No shifting dullness. There is no palpable hepatosplenom egaly. EXTREMITIES: No clubbing, cyanosis, or edema. Severe muscle wasting. LABORATORY DATA: White count 10.6 yesterday, hemoglobin is 9.2 yesterday. This is similar to previo us admissions. Platelet count was 222. INR was 1.2 on 04/01/2018. It has not been repleted. Blood gas today pH 7.52, pCO2 of 34, pO2 of 109. Chemistries: Sodium yesterday was 140, potassium 4.3, c hloride 96, BUN 52, creatinine 6.36. Liver function tests normal, albumin 2.6, ammonia 103 today and 117 yesterday. Globulin is 4.9 with total protein of 7.6. ASSESSMENT: Recurrent admission for hepatic encephalopathy. He has got severe end-stage renal disea se. His ammonia was elevated. He has been started on lactulose. He shows no overt fever or signs o f infection. We will ask for an ultrasound of the liver for hepatoma screening and get an alpha feto protein. For fluid in the abdomen, we will ask for diagnostic paracentesis. On the last admission, he did not have spontaneous bacterial peritonitis. At this time, there are no signs of bleeding. RECOMMENDATIONS: 1. Rule out SBP. 2. Stop all sedatives. 3. Lactulose and rifaximin. 4. Hepatoma screening.
[2018-04-25] MEDS: Stress 600 With Zinc 1 TAB PO SCH (07:50)
[2018-04-25] MEDS: Metoprolol Tartrate 25 MG TAB PO SCH ×2 (07:51→20:14)
[2018-04-25] MEDS: Aspirin 81 mg Enteric Coated Tablet PO SCH (07:51)
[2018-04-25] MEDS: Cinacalcet HCl 30 MG TAB PO SCH (07:51)
[2018-04-25] MEDS: Rifaximin 550 MG TAB PO SCH ×2 (07:51→20:15)
[2018-04-25] MEDS ORDERED: TABLE PO SCH (09:00)
[2018-04-25] MEDS ORDERED: VIT D3 PO SCH (09:00)
[2018-04-25] MEDS ORDERED: FOLIC AC PO SCH (09:00)
[2018-04-25] MEDS ORDERED: [UNRECOGNIZED DRUG - OTHER] PO SCH (09:00)
[2018-04-25] MEDS ORDERED: VIT BCOMP C PO SCH (09:00)
--- NOTE | 2018-04-25 09:17 | RAD ---
CHEST 1 VIEW: Date: 04/25/18 INDICATION: Intubation. COMPARISON: Prior exam dated 04/23/18. FINDINGS: Cardiomegaly and left lower lobe air space opacity persists. COPD change is similar. ET tube and delores kajal catheter are unchanged. No pneumothorax is noted. IMPRESSION: Stable exam. POS: [facility]
--- NOTE | 2018-04-25 09:22 | PDOC.PN ---
- Subjective Encounter Start Date: 04/25/18 Encounter Start Time: 09:20 -: non-verbal Doing well overall. Still on Precedex. Has some spont movements. - Objective Resuscitation Status: Resuscitation Status FULL:Full Resuscitation Vital Signs & Weight: Vital Signs (12 hours) Temp Pulse Resp BP Pulse Ox 04/25/18 08:00 13 04/25/18 07:00 98.5 F 04/25/18 06:29 79 95/58 L 04/25/18 06:26 66 12 99 04/25/18 06:00 14 04/25/18 05:00 98.8 F 04/25/18 04:00 12 04/25/18 02:16 76 14 100 04/25/18 01:59 12 04/25/18 00:00 98.5 F 12 04/24/18 22:04 101 H 12 100 04/24/18 22:00 12 Weight Admit Weight 126 lb 15.78 oz Weight 123 lb 10.869 oz Most Recent Monitor Data Heart Rate from ECG 75 NIBP 89/48 NIBP BP-Mean 61 Respiration from ECG 13 SpO2 100 I&O: 04/24/18 04/25/18 04/26/18 06:59 06:59 06:59 Intake Total 878 1696.5 60 Output Total 750 410 Balance 128 1286.5 60 Result Diagrams: 04/25/18 03:17 04/25/18 03:17 Phys Exam - Physical Examination Constitutional: NAD Intubated, sedated. Respiratory: no wheezing, no rales, no rhonchi, clear to auscultation bilateral Cardiovascular: RRR Frequent ectopy. I/ mumur Gastrointestinal: soft Distended. Dx/Plan (1) Hepatic encephalopathy Code(s): K72.90 - HEPATIC FAILURE, UNSPECIFIED WITHOUT COMA Status: Acute (2) Chronic hepatitis C Code(s): B18.2 - CHRONIC VIRAL HEPATITIS C Status: Chronic (3) Cirrhosis of liver Code(s): K74.60 - UNSPECIFIED CIRRHOSIS OF LIVER Status: Chronic (4) ESRD (end stage renal disease) on dialysis Code(s): N18.6 - END STAGE RENAL DISEASE; Z99.2 - DEPENDENCE ON RENAL DIALYSIS Status: Chronic Comment: HD per Renal service - Plan * Followed by Pulm/CC, GI, Nephrology. * On Xifaxan and Lactulose. No BM yet. * Ammonia level is improved. * Does not look like SBP. * Creat sl better.
--- NOTE | 2018-04-25 11:41 | PRG ---
DATE OF SERVICE: 04/25/2018 SUBJECTIVE: The patient is still somnolent. He does not respond to verbal stimuli. OBJECTIVE: VITAL SIGNS: Pulse is 63, blood pressure 96/52, respiratory rate 14, temperature is 98.5. HEENT: Significant for nasotracheal tube and nasogastric tube. CHEST: Clear. CARDIOVASCULAR: Regular rate and rhythm. ABDOMEN: Protuberant, but soft, nontender, without organomegaly or masses. LABORATORY DATA: Shows an ammonia of 66, WBC was 395 with 20% neutrophils. ASSESSMENT: 1. End-stage renal disease, on hemodialysis. 2. Cirrhosis with ascites. 3. Encephalopathy - I am not sure this is all hepatic encephalopathy, but improvement in his ammonia with lactulose and Xifaxan. RECOMMENDATIONS: 1. Continue lactulose and Xifaxan to have 3 bowel movements per day. 2. Hospice would be a consideration.
--- NOTE | 2018-04-25 13:38 | PRG ---
DATE OF SERVICE: 04/25/2018 SUBJECTIVE: Mr. Molina is still not awake enough to extubate. He is not following commands. He is starting to have frequent bowel movements. OBJECTIVE: VITAL SIGNS: Heart rate is 101. He is in sinus rhythm. Blood pressure 139/78, respiratory rate 22. LUNGS: Remarkable for clear breath sounds and are equal. CARDIOVASCULAR: Regular rhythm. ABDOMEN: Distended. EXTREMITIES: Without asymmetry. LABORATORY DATA: White count 7.5, hemoglobin 8.0, platelets 154,000. Sodium 139, potassium 3.9, chl oride 100, bicarbonate 26, BUN 39, creatinine 5.07. A pH 7.55, CO2 28, pO2 109. IMPRESSION: Respiratory failure secondary to hepatic encephalopathy. He is only on pressure support ventilation with no volume rate. He is hyperventilating consistent wi th his encephalopathy and liver disease. We will continue supportive care. Awaiting an improvement of his neurological status. Last admissio n when he was intubated, I believe it was 4-5 days before his encephalopathy cleared enough to consid er extubation.
--- NOTE | 2018-04-25 14:30 | PRG ---
DATE OF SERVICE: 04/25/2018 SUBJECTIVE: A 67-year-old female being seen for end-stage renal disease. The patient denies any codey sea, vomiting or chest pain. PHYSICAL EXAMINATION: GENERAL: Patient is awake, alert. VITAL SIGNS: Afebrile, pulse 101, breathing 16, blood pressure 139/78. HEAD/NECK: Normocephalic. Atraumatic. EYES: EOMI. No deformity. EARS: Clear. No ulcers. NOSE: Intact. No lesions. MOUTH: Clear. No discharge. THROAT: Clear. No exudate. LUNGS: Clear. No crackles. CARDIAC: S1, S2. No rub. ABDOMEN: Benign. BS+. GENITALIA/RECTUM: Rosario absent. BACK/EXTREMITIES: Edema 0+ Ulcer- NEUROLOGICAL: Alert and motor intact. SKIN: Rash- Bruise- LYMPHATICS: Edema- Ulcer- LABORATORY DATA: Show hemoglobin 8. ASSESSMENT AND RECOMMENDATIONS: 1. Stage 6 chronic kidney disease. We will plan dialysis tomorrow. 2. Hypertension, stable. 3. Anemia, stable. Overall, prognosis is poor. The patient has multiorgan failure.
[2018-04-25] MEDS: Famotidine/PF 20 mg/2ml Vial SLOW IVP SCH (20:15)
[2018-04-26 05:13] LABS: Anion Gap 20 mmol/L (10-20); BUN (Urea Nitrogen) 50 mg/dL (8.4-25.7); Calc. Creatinine Clearance 8 mL/min (70-130); Calcium 7.4 mg/dL (7.8-10.44); Carbon Dioxide 24 mmol/L (23-31); Chloride 104 mmol/L (98-107); Estimated GFR-MDRD 10; Glucose 106 mg/dL (80-115); Potassium 3.9 mmol/L (3.5-5.1); Sodium 144 mmol/L (136-145)
[2018-04-26 05:27] LABS: Hemoglobin 7.9 g/dL (14.0-18.0); Hypochromia MODERATE=16-30 cells (100X) (0-5/hpf); Lymphocytes 7 % (21-51); MDiff Complete? YES; Mean Corpuscular Hemoglobin 29.8 pg (27.0-31.0); Mean Corpuscular Volume 93.3 fL (78.0-98.0); Mean Platelet Volume 8.7 fL (7.4-10.4); Monocytes 11 % (0-10); Neutrophil 82 % (42-75); PLT Morphology Comment Appears Adequate; Platelet Count 146 thou/uL (130-400); Polychromasia SLIGHT = 2-3 cells (100X) (0-2/hpf); RBC Distribution Width 18.5 % (11.5-14.5); Red Blood Cell (RBC) Count 2.65 mill/uL (4.70-6.10); White Blood Cell (WBC) Count 7.8 thou/uL (4.8-10.8)
[2018-04-26 07:24] LABS: Actual Bicarbonate (HCO3a) 25.8 mEq/L (22-28); Base Excess (BEa) 3.3 mEq/L (-2.0 to +3.0); CO2 Tension 31.4 mmHg (35.0-45.0); Calcium, Ionized 0.92 mmol/L (1.12-1.30); Carboxyhemoglobin (COHb) 1.3 gm% (0.0-3.0); Hemoglobin (Hb) 8.8 g/dL (14.0-18.0); O2 Tension (PaO2) 114.6 mmHg (> 80.0); Potassium - ABG Lab 3.71 mmol/L (3.70-5.30); pH, Arterial 7.53 (7.35-7.45)
[2018-04-26 07:28] LABS: Puncture Site RRA
--- NOTE | 2018-04-26 08:31 | RAD ---
SINGLE VIEW OF THE CHEST: COMPARISON: 04/25/18. HISTORY: Ventilated patient with respiratory failure. FINDINGS: A single view of the chest shows an enlarged cardiomediastinal silhouette. The lines and tubes are u nchanged in position. There are stable multifocal mixed alveolar/interstitial opacities in the lungs . IMPRESSION: Stable exam. POS: [facility]
--- NOTE | 2018-04-26 10:00 | PDOC.PN ---
- Subjective Encounter Start Date: 04/26/18 Encounter Start Time: 09:20 Non-verbal. Intubated. - Objective Resuscitation Status: Resuscitation Status FULL:Full Resuscitation Vital Signs & Weight: Vital Signs (12 hours) Temp Pulse Resp BP Pulse Ox 04/26/18 08:00 100 04/26/18 07:09 78 145/74 H 04/26/18 07:07 71 10 L 99 04/26/18 06:00 11 L 04/26/18 04:00 97.5 F L 14 04/26/18 02:39 88 11 L 100 04/26/18 02:00 14 04/26/18 00:00 98.3 F 12 04/25/18 22:20 61 12 100 04/25/18 22:00 12 Weight Admit Weight 126 lb 15.78 oz Weight 119 lb 7.849 oz Most Recent Monitor Data Heart Rate from ECG 80 NIBP 109/51 NIBP BP-Mean 66 Respiration from ECG 13 SpO2 100 I&O: 04/25/18 04/26/18 04/27/18 06:59 06:59 06:59 Intake Total 1696.5 1150 Output Total 410 600 Balance 1286.5 550 Result Diagrams: 04/26/18 04:21 04/26/18 04:20 Phys Exam - Physical Examination Constitutional: NAD Respiratory: no wheezing, no rales, no rhonchi, clear to auscultation bilateral Cardiovascular: RRR, no significant murmur Gastrointestinal: soft, no distention Musculoskeletal: no edema Psychiatric: normal affect, A&O x 3 Dx/Plan (1) Hepatic encephalopathy Code(s): K72.90 - HEPATIC FAILURE, UNSPECIFIED WITHOUT COMA Status: Acute (2) Chronic hepatitis C Code(s): B18.2 - CHRONIC VIRAL HEPATITIS C Status: Chronic (3) Cirrhosis of liver Code(s): K74.60 - UNSPECIFIED CIRRHOSIS OF LIVER Status: Chronic (4) ESRD (end stage renal disease) on dialysis Code(s): N18.6 - END STAGE RENAL DISEASE; Z99.2 - DEPENDENCE ON RENAL DIALYSIS Status: Chronic Comment: HD per Renal service - Plan * Continue Xifaxan, Lactulose. Having multiple BM's now. * Continue vent support until encephalopathy improves.
[2018-04-26] MEDS: Cinacalcet HCl 30 MG TAB PO SCH (10:10)
[2018-04-26] MEDS: Metoprolol Tartrate 25 MG TAB PO SCH ×2 (10:10→20:48)
[2018-04-26] MEDS: Stress 600 With Zinc 1 TAB PO SCH (10:10)
[2018-04-26] MEDS: Aspirin 81 mg Enteric Coated Tablet PO SCH (10:10)
[2018-04-26] MEDS: Rifaximin 550 MG TAB PO SCH ×2 (10:10→20:48)
--- NOTE | 2018-04-26 13:19 | PRG ---
DATE OF SERVICE: 04/26/2018 SUBJECTIVE: Mr. Molina still not awake enough to consider extubation. OBJECTIVE: VITAL SIGNS: He is afebrile, heart rate 76, blood pressure 102/52. Intake and output is positive 55 0. LUNGS: Clear. HEART: Regular rhythm. ABDOMEN: Protuberant and an exam consistent with mild ascites. EXTREMITIES: With no new findings. LABORATORY DATA: Electrolytes are normal. BUN is 50, creatinine 6.93. Blood gas 7.53, CO2 of 31, P O2 of 114. White count 7.8, hemoglobin 7.9, platelets 146. Chest radiograph shows bilateral interst itial infiltrates most likely secondary to edema. IMPRESSION: 1. Respiratory failure secondary to hepatic encephalopathy, slow to resolve. 2. End-stage renal disease. 3. Cirrhosis. 4. Hypoalbuminemia. 5. Deconditioning and cachexia. 6. History of hepatitis C. 7. Chronic obstructive pulmonary disease with bronchospasm last time he was intubated in last admiss ion. 8. Hypertension. 9. History of coronary artery bypass grafting. 10. History of subclavian stent. PLAN: Continue supportive care with weaning once his neurological status allows this with his blood pressure tolerates more volume should be removed with dialysis.
--- NOTE | 2018-04-26 18:01 | PRG ---
DATE OF SERVICE: 04/26/2018 SUBJECTIVE: This is a 67-year-old gentleman being seen for end-stage renal disease. The patient remains intubated and resting. PHYSICAL EXAMINATION: GENERAL: The patient is resting. VITAL SIGNS: Afebrile, pulse 87, breathing at 16, blood pressure 111/50. GENERAL APPEARANCE AND MENTAL STATUS: Fair. HEAD/NECK: Normocephalic. Atraumatic. EYES: EOMI. No deformity. EARS: Clear. No ulcers. NOSE: Intact. No lesions. MOUTH: Clear. No discharge. THROAT: Clear. No exudate. LUNGS: Clear. No crackles. CARDIAC: S1, S2. No rub. ABDOMEN: Benign. BS+. GENITALIA/RECTUM: Rosario absent. BACK/EXTREMITIES: Edema 0+. Ulcer-. NEUROLOGIC: Alert and motor intact. SKIN: Rash-. Bruise-. LYMPHATICS: Edema-. Ulcer-. LABORATORY DATA: Hemoglobin 10.9. ASSESSMENT AND PLAN: 1. Stage 6 chronic kidney disease. Plan, dialysis per schedule. 2. Hypertension. 3. Anemia, stable. PROGNOSIS: Poor. MTDD
--- NOTE | 2018-04-26 18:26 | PRG ---
DATE OF SERVICE: 04/26/2018 SUBJECTIVE: The patient is still on the vent. He is undergoing dialysis. He has had multiple bowel movements and his lactulose was held. OBJECTIVE: VITAL SIGNS: Blood pressure 116/82, pulse 78, respiratory rate 10, temperature 98.0. CHEST: Clear. CARDIOVASCULAR: Regular rate and rhythm. ABDOMEN: Soft, nontender, without organomegaly or masses. It is slightly protuberant secondary to a scites. LABORATORY DATA: Shows a white blood cell count 7.8, hemoglobin is 7.9, hematocrit 24.7, platelet co unt 82. Chemistries show a BUN 50, creatinine 6.93. ASSESSMENT: 1. End-stage renal disease, on hemodialysis. 2. Cirrhosis. 3. Ascites. 4. Encephalopathy - I am not sure we are dealing with hepatic encephalopathy, as has improved, but he is not fully awakened. 5. Diarrhea, secondary to lactulose. RECOMMENDATIONS: 1. Hold lactulose. 2. Continue Xifaxan.
[2018-04-26] MEDS: Famotidine/PF 20 mg/2ml Vial SLOW IVP SCH (20:49)
[2018-04-27 04:01] LABS: Anion Gap 16 mmol/L (10-20); BUN (Urea Nitrogen) 18 mg/dL (8.4-25.7); Calc. Creatinine Clearance 15 mL/min (70-130); Calcium 7.8 mg/dL (7.8-10.44); Carbon Dioxide 24 mmol/L (23-31); Chloride 101 mmol/L (98-107); Estimated GFR-MDRD 20; Glucose 94 mg/dL (80-115); Potassium 4.3 mmol/L (3.5-5.1); Sodium 137 mmol/L (136-145)
[2018-04-27 05:19] LABS: Anisocytosis MODERATE=16-30 cells (100X) (0-5/hpf); Band 1 % (5-11); Eosinophils 1 % (0-10); Hemoglobin 8.9 g/dL (14.0-18.0); Lymphocytes 15 % (21-51); MDiff Complete? YES; Mean Corpuscular HGB CONC 30.3 g/dL (32.0-36.0); Mean Corpuscular Hemoglobin 28.2 pg (27.0-31.0); Mean Corpuscular Volume 92.9 fL (78.0-98.0); Mean Platelet Volume 8.5 fL (7.4-10.4); Monocytes 14 % (0-10); Neutrophil 69 % (42-75); PLT Morphology Comment Appears Decreased; Platelet Count 106 thou/uL (130-400); RBC Distribution Width 18.2 % (11.5-14.5); Red Blood Cell (RBC) Count 3.15 mill/uL (4.70-6.10); White Blood Cell (WBC) Count 7.9 thou/uL (4.8-10.8)
[2018-04-27 07:17] LABS: Actual Bicarbonate (HCO3a) 29.7 mEq/L (22-28); Base Excess (BEa) 5.9 mEq/L (-2.0 to +3.0); CO2 Tension 40.1 mmHg (35.0-45.0); Carboxyhemoglobin (COHb) 2.2 gm% (0.0-3.0); Hemoglobin (Hb) 8.6 g/dL (14.0-18.0); O2 Tension (PaO2) 94.7 mmHg (> 80.0); Potassium - ABG Lab 3.99 mmol/L (3.70-5.30); pH, Arterial 7.49 (7.35-7.45)
[2018-04-27 07:22] LABS: ALV-art Gradient 104.725 (0-20)
--- NOTE | 2018-04-27 08:49 | PRG ---
DATE OF SERVICE: 04/27/2018. SUBJECTIVE: The patient is still intubated. He follows commands apparently according to nursing per sonnel. OBJECTIVE: VITAL SIGNS: Temperature is 97.5, pulse is 91, respiratory rate 12, blood pressure 138/65. HEENT: Unremarkable. NECK: Supple. CHEST: Clear. CARDIOVASCULAR: Regular rate and rhythm. ABDOMEN: Soft, tympanitic. Bowel sounds present. RECTAL: Deferred. EXTREMITIES: Normal. LABORATORY DATA: Shows a white blood cell count 7.9, hemoglobin 8.9, hematocrit 29.3. Chemistries s how creatinine 3.66. Gastric output is 400. ASSESSMENT: 1. Cirrhosis - stable. 2. Ascites. 3. Diarrhea secondary to lactulose - resolved. 4. End-stage renal disease. 5. Respiratory failure. RECOMMENDATIONS: 1. Clamp NG, hopefully begin tube feedings soon. 2. Consider hospice.
--- NOTE | 2018-04-27 09:20 | PRG ---
DATE OF SERVICE: 04/27/2018 SUBJECTIVE: This is a 67-year-old white gentleman being seen for end-stage renal disease. The patie nt denies any nausea, vomiting or chest pain. PHYSICAL EXAMINATION: GENERAL: Patient is awake, alert. VITAL SIGNS: Afebrile, pulse 91, breathing 16, blood pressure 130/65. Please note the patient is nonverbal. OBJECTIVE: See above. Awake, alert, in no acute distress. GENERAL APPEARANCE AND MENTAL STATUS: Fair. HEAD/NECK: Normocephalic. Atraumatic. EYES: EOMI. No deformity. EARS: Clear. No ulcers. NOSE: Intact. No lesions. MOUTH: Clear. No discharge. THROAT: Clear. No exudate. LUNGS: Clear. No crackles. CARDIAC: S1, S2. No rub. ABDOMEN: Benign. BS+. GENITALIA/RECTUM: Rosario absent. BACK/EXTREMITIES: Edema 0+ Ulcer- NEUROLOGICAL: Alert and motor intact. SKIN: Rash- Bruise- LYMPHATICS: Edema- Ulcer- LABORATORY DATA: Hemoglobin 8.9. ASSESSMENT AND RECOMMENDATIONS: 1. Stage 6 chronic kidney disease. No indication for dialysis. 2. Hypertension, stable. 3. Anemia, stable. 4. Multiorgan failure.
[2018-04-27] MEDS: Rifaximin 550 MG TAB PO SCH ×2 (09:21→21:38)
[2018-04-27] MEDS: Cinacalcet HCl 30 MG TAB PO SCH (09:22)
[2018-04-27] MEDS: Aspirin 81 mg Enteric Coated Tablet PO SCH (09:22)
[2018-04-27] MEDS: Metoprolol Tartrate 25 MG TAB PO SCH ×2 (09:22→21:38)
[2018-04-27] MEDS: Stress 600 With Zinc 1 TAB PO SCH (09:22)
--- NOTE | 2018-04-27 09:47 | RAD ---
PORTABLE CHEST 1 VIEW: Date: 04/27/18 Time: 0520 hours HISTORY: Respiratory failure. COMPARISON: Previous day. FINDINGS: Endotracheal and nasogastric tube positions and left-sided vascular stent unchanged. Heart size enlar ged. Stable multifocal mixed alveolar/interstitial opacities in the lungs are again noted. IMPRESSION: Stable exam. POS: [facility]
--- NOTE | 2018-04-27 10:14 | PDOC.PN ---
- Subjective Encounter Start Date: 04/27/18 Encounter Start Time: 10:12 Intubated. He does respond and indicates he is ok. - Objective Resuscitation Status: Resuscitation Status FULL:Full Resuscitation Vital Signs & Weight: Vital Signs (12 hours) Temp Pulse Resp BP Pulse Ox 04/27/18 10:00 11 L 04/27/18 08:00 12 100 04/27/18 07:00 97.5 F L 04/27/18 06:57 80 156/66 H 04/27/18 06:55 84 12 100 04/27/18 06:00 13 04/27/18 04:00 97.7 F 17 04/27/18 02:21 74 13 100 04/27/18 02:00 14 04/27/18 00:00 97.5 F L 12 Weight Admit Weight 126 lb 15.78 oz Weight 120 lb 13.013 oz Most Recent Monitor Data Heart Rate from ECG 79 NIBP 142/66 NIBP BP-Mean 91 Respiration from ECG 14 SpO2 100 I&O: 04/26/18 04/27/18 04/28/18 06:59 06:59 06:59 Intake Total 1150 669 Output Total 600 400 0 Balance 550 269 0 Result Diagrams: 04/27/18 03:43 04/27/18 03:43 Phys Exam - Physical Examination Constitutional: NAD Intubated. Respiratory: no wheezing, no rales, no rhonchi, clear to auscultation bilateral Cardiovascular: RRR, no significant murmur Gastrointestinal: soft, non-tender, no distention, positive bowel sounds Musculoskeletal: no edema Dx/Plan (1) Hepatic encephalopathy Code(s): K72.90 - HEPATIC FAILURE, UNSPECIFIED WITHOUT COMA Status: Acute Comment: Improving. GI following. Recurrent issue. Continue Xifaxan/ Lactulose. (2) Chronic hepatitis C Code(s): B18.2 - CHRONIC VIRAL HEPATITIS C Status: Chronic (3) Cirrhosis of liver Code(s): K74.60 - UNSPECIFIED CIRRHOSIS OF LIVER Status: Chronic (4) ESRD (end stage renal disease) on dialysis Code(s): N18.6 - END STAGE RENAL DISEASE; Z99.2 - DEPENDENCE ON RENAL DIALYSIS Status: Chronic Comment: HD per Renal service (5) Acute respiratory failure with hypoxia Code(s): J96.01 - ACUTE RESPIRATORY FAILURE WITH HYPOXIA Status: Acute Comment: Pulm/CC following. Wean as tolerated. - Plan * Palliative care team.
--- NOTE | 2018-04-27 10:44 | PRG ---
DATE OF SERVICE: 04/27/2018 Mr. Molina is awake today. PHYSICAL EXAMINATION: VITAL SIGNS: His respiratory rate is in the teens, blood pressure 142/66, oximetry is 100%. LUNGS: His lungs are clear. HEART: Regular rhythm. ABDOMEN: Soft. LABORATORY DATA: White count 7.9, hemoglobin 8.9, platelets 106,000. Sodium 137, potassium 4.3, chloride 101, bicarbonate 24, BUN 18, creatinine 3.66. He is not scheduled for dialysis today. PH 7.49, CO2 of 40, pO2 94. His cuff was deflated and he could talk around his endotracheal tube. Subsequently being extubated a s I am dictating this. IMPRESSION: 1. Hepatic encephalopathy secondary to cirrhosis. 2. End-stage renal disease. 3. Respiratory failure secondary to his encephalopathy, he is now being extubated. Continue to follow. It is imperative that he stay on his hepatic meds to prevent his encephalopathy once he gets to a point where he can be moved back out of here. Critical care time was 30 minutes.
--- NOTE | 2018-04-27 15:20 | EKG ---
Test Reason : Blood Pressure : / mmHG Vent. Rate : 081 BPM Atrial Rate : 076 BPM P-R Int : 000 ms QRS Dur : 118 ms QT Int : 448 ms P-R-T Axes : 000 -55 145 degrees QTc Int : 520 ms Atrial fibrillation Left anterior fascicular block Left ventricular hypertrophy with QRS widening Prolonged QT Abnormal ECG When compared with ECG of 23-APR-2018 11:54, (Unconfirmed) Atrial fibrillation has replaced Atrial flutter T wave inversion less evident in Lateral leads Confirmed by SENG CARRERO, DR. Barth ([id number]) on 04/27/2018 3:20:02 PM Referred By: JOHNSON Confirmed By:DR. Tab ELLSWORTH MD
--- NOTE | 2018-04-27 18:02 | CON ---
DATE OF CONSULTATION: 04/27/2018 REASON FOR CONSULTATION: Atrial fibrillation, rapid ventricular response. HISTORY OF PRESENT ILLNESS: Mr. Molina is a 67-year-old gentleman who comes to the hospital for altered mentation. He has a history of cirrhosis, end-stage renal disease and was r ecently admitted to the hospital for hepatic encephalopathy. He was intubated; at that time, he went into an atrial flutter actually and he was intubated for a few days, extubated eventually once his e ncephalopathy, improved. Eventually, he was treated medically, which slowed down his atrial flutter which eventually turned into fibrillation. He went home in stable condition. He had to come back be cause he was altered, found to be again in hepatic encephalopathy and intubated to protect his airway . He has since been extubated. During his stay, he has been noted to be in atrial fibrillation RVR, so Cardiology is being consulted for this. On my evaluation, Mr. Molina is still somewhat confu sed, asking for hamburger, really nothing much can be taken out, it can be gotten from his history. He is in atrial fibrillation and rate controlled in the 70s. PAST MEDICAL HISTORY: 1. Hepatitis C, chronic. 2. Hepatitis C cirrhosis. 3. Chronic obstructive pulmonary disease. 4. Hypertension. 5. End-stage renal disease, on hemodialysis. 6. History of atrial fibrillation in the past, now atrial flutter recently. PAST SURGICAL HISTORY: 1. AV fistula. 2. Hemodialysis catheter in the past. 3. Several diagnostic paracentesis in the past. OUTPATIENT MEDICATIONS: Include, 1. Prednisone 10 mg a day. 2. Simethicone. 3. Pantoprazole. 4. Metoprolol. 5. Lactulose 30 mg q.i.d. 6. DuoNeb. 7. Folic acid. 8. Diltiazem 180 mg a day. 9. Sensipar. 10. Aspirin 81 a day. 11. Augmentin. 12. Albuterol. 13. Acetaminophen p.r.n. ALLERGIES: No known drug allergies. SOCIAL HISTORY: No alcohol, tobacco, or drugs. FAMILY HISTORY: Noncontributory. REVIEW OF SYSTEMS: Unobtainable as the patient is confused and has only answers he wants a gabi oliveira now. PHYSICAL EXAMINATION: VITAL SIGNS: Temperature 97.8, pulse 88, respiration rate 14, satting 96% on room air, blood pressur e 151/72. GENERAL: Awake, alert, oriented to person only, in no distress. HEENT: Normocephalic. LUNGS: Clear. CARDIOVASCULAR: Irregularly irregular, heart rate in the 70s. ABDOMEN: Positive ascites. Nontender. EXTREMITIES: 1+ edema. SKIN: Warm and dry. LABORATORY WORK: Reviewed. Hemoglobin of 8.9, platelet count of 106. White count of 7.9. Chemistr ies were reviewed, unremarkable. Albumin of 2.3. Ammonia level on admission was 103, down to 66 two days ago. Most recent echocardiogram with an EF of 60%-65%. This was just a little less than a month ago, atri al flutter during the test and elevated right-sided pressures. ASSESSMENT AND PLAN: 1. Atrial fibrillation. Currently rate controlled, not a good candidate for any full anticoagulatio n given his hepatitis C cirrhosis. 2. Pulmonary hypertension: Elevated pulmonary pressures on the last echo are most likely related to his ascites and his venous portal hypertension. On dialysis, thoracentesis probably helped as well. 3. Hepatic encephalopathy. 4. Hepatitis C cirrhosis. 5. End-stage renal disease, on hemodialysis. PLAN: 1. Continue aspirin alone for stroke prophylaxis as well as p.o. diltiazem once blood pressure allow s for rate control. 2. Poor candidate for any invasive interventions or any ablations. Thank you for letting us participate in the care of your patient. We will follow. Agree with pallia ti care evaluation.
[2018-04-27] MEDS: Famotidine 20 MG TAB PO SCH (21:38)
[2018-04-28 05:46] LABS: Band 2 % (5-11); Eosinophils 1 % (0-10); Hemoglobin 8.3 g/dL (14.0-18.0); Lymphocytes 10 % (21-51); MDiff Complete? YES; Mean Corpuscular HGB CONC 30.8 g/dL (32.0-36.0); Mean Corpuscular Hemoglobin 28.9 pg (27.0-31.0); Mean Corpuscular Volume 93.7 fL (78.0-98.0); Mean Platelet Volume 8.7 fL (7.4-10.4); Monocytes 19 % (0-10); Neutrophil 68 % (42-75); Platelet Count 156 thou/uL (130-400); RBC Distribution Width 18.1 % (11.5-14.5); Red Blood Cell (RBC) Count 2.86 mill/uL (4.70-6.10); Schistocytes SLIGHT = 2-5 cells (100X) (0-1/hpf); White Blood Cell (WBC) Count 6.7 thou/uL (4.8-10.8)
[2018-04-28 06:26] LABS: Anion Gap 17 mmol/L (10-20); BUN (Urea Nitrogen) 29 mg/dL (8.4-25.7); Calc. Creatinine Clearance 10 mL/min (70-130); Calcium 7.5 mg/dL (7.8-10.44); Carbon Dioxide 25 mmol/L (23-31); Chloride 100 mmol/L (98-107); Estimated GFR-MDRD 12; Glucose 82 mg/dL (80-115); Potassium 4.4 mmol/L (3.5-5.1); Sodium 138 mmol/L (136-145)
[2018-04-28] MEDS: Rifaximin 550 MG TAB PO SCH ×2 (08:23→19:56)
[2018-04-28] MEDS: Aspirin 81 mg Enteric Coated Tablet PO SCH (08:24)
[2018-04-28] MEDS: Cinacalcet HCl 30 MG TAB PO SCH (08:24)
[2018-04-28] MEDS: Metoprolol Tartrate 25 MG TAB PO SCH ×2 (08:24→19:56)
[2018-04-28] MEDS: Stress 600 With Zinc 1 TAB PO SCH (08:24)
--- NOTE | 2018-04-28 08:25 | RAD ---
PORTABLE CHEST: History: Respiratory distress. Comparison: Prior day's exam. FINDINGS: Endotracheal and NG tubes have been removed. Parenchymal lung changes are stable. Left brachiocephali c stent is unchanged in position. IMPRESSION: Interval removal of the endotracheal and NG tubes, otherwise stable study. POS: [facility]
--- NOTE | 2018-04-28 11:27 | PRG ---
DATE OF SERVICE: 04/28/2018 SUBJECTIVE: This is a 67-year-old male being seen for end-stage renal disease. The patient denies a ny nausea, vomiting, or chest pain. PHYSICAL EXAMINATION: GENERAL: Patient is awake, alert. VITAL SIGNS: Afebrile, pulse 65, breathing 16, blood pressure was 165/79. OBJECTIVE: See above. Awake, alert, in no acute distress. GENERAL APPEARANCE AND MENTAL STATUS: Fair. HEAD/NECK: Normocephalic. Atraumatic. EYES: EOMI. No deformity. EARS: Clear. No ulcers. NOSE: Intact. No lesions. MOUTH: Clear. No discharge. THROAT: Clear. No exudate. LUNGS: Clear. No crackles. CARDIAC: S1, S2. No rub. ABDOMEN: Benign. BS+. GENITALIA/RECTUM: Rosario absent. BACK/EXTREMITIES: Edema 0+ Ulcer- NEUROLOGICAL: Alert and motor intact. SKIN: Rash- Bruise- LYMPHATICS: Edema- Ulcer- LABORATORY: Hemoglobin 8.8. ASSESSMENT AND RECOMMENDATIONS: 1. Stage 6 chronic kidney disease, continue hemodialysis. 2. Hypertension, stable. 3. Anemia, stable. 4. Medication based on glomerular filtration rate are appropriate.
--- NOTE | 2018-04-28 13:26 | PDOC.PN ---
- Subjective Encounter Start Date: 04/28/18 Encounter Start Time: 08:15 -: old records requested/rev Patient seen and examined. No new complaints. No overnight events pt is getting HD - Objective Resuscitation Status: Resuscitation Status FULL:Full Resuscitation MAR Reviewed: Yes Vital Signs & Weight: Vital Signs (12 hours) Temp Pulse Resp Pulse Ox 04/28/18 12:00 97.8 F 04/28/18 11:21 77 19 100 04/28/18 07:45 96 04/28/18 07:00 97.9 F 04/28/18 06:43 100 04/28/18 06:41 67 17 100 04/28/18 04:00 97.4 F L 04/28/18 02:54 65 16 100 Weight Admit Weight 126 lb 15.78 oz Weight 120 lb 13.013 oz Most Recent Monitor Data Heart Rate from ECG 79 NIBP 113/55 NIBP BP-Mean 69 Respiration from ECG 18 SpO2 100 I&O: 04/27/18 04/28/18 04/29/18 06:59 06:59 06:59 Intake Total 669 128.4 0 Output Total 400 0 Balance 269 128.4 0 Result Diagrams: 04/28/18 04:30 04/28/18 04:30 Radiology Reviewed by me: Yes (chest xray reviewed) EKG Reviewed by me: Yes Phys Exam - Physical Examination Constitutional: NAD cachectic HEENT: PERRLA, moist MMs, sclera anicteric Neck: no JVD, supple Respiratory: no wheezing, no rales, no rhonchi Cardiovascular: RRR, no significant murmur, no rub Gastrointestinal: soft, non-tender, no distention, positive bowel sounds Musculoskeletal: no edema, pulses present Neurological: non-focal, normal sensation Lymphatic: no nodes Psychiatric: normal affect Skin: no rash, normal turgor Dx/Plan (1) Acute respiratory failure with hypoxia Code(s): J96.01 - ACUTE RESPIRATORY FAILURE WITH HYPOXIA Status: Acute Comment: s/p extubation, wean off oxygen as tolerated (2) Hepatic encephalopathy Code(s): K72.90 - HEPATIC FAILURE, UNSPECIFIED WITHOUT COMA Status: Acute Comment: Continue lactulose and rifaximin (3) Anemia of renal disease Code(s): D63.1 - ANEMIA IN CHRONIC KIDNEY DISEASE Status: Chronic (4) Chronic hepatitis C Code(s): B18.2 - CHRONIC VIRAL HEPATITIS C Status: Chronic (5) Cirrhosis of liver Code(s): K74.60 - UNSPECIFIED CIRRHOSIS OF LIVER Status: Chronic (6) ESRD (end stage renal disease) on dialysis Code(s): N18.6 - END STAGE RENAL DISEASE; Z99.2 - DEPENDENCE ON RENAL DIALYSIS Status: Chronic Comment: HD per Renal service (7) Elevated troponin Code(s): R74.8 - ABNORMAL LEVELS OF OTHER SERUM ENZYMES Status: Chronic (8) GERD (gastroesophageal reflux disease) Code(s): K21.9 - GASTRO-ESOPHAGEAL REFLUX DISEASE WITHOUT ESOPHAGITIS Status: Chronic (9) PAF (paroxysmal atrial fibrillation) Code(s): I48.0 - PAROXYSMAL ATRIAL FIBRILLATION Status: Chronic (10) Secondary hyperparathyroidism of renal origin Code(s): N25.81 - SECONDARY HYPERPARATHYROIDISM OF RENAL ORIGIN Status: Chronic - Plan cont current plan of care, continue antibiotics * on precedex drip * transfer decision will defer to pulmonary * medication reviewed as below * symptomatic treatment as below * HD as per nephrology * repeat ammonia level tomorrow. Review of Systems - Review of Systems ENT: negative: Ear Pain, Ear Discharge, Nose Pain, Nose Discharge, Nose Congestion, Mouth Pain, Mouth Swelling, Throat Pain, Throat Swelling, Other Respiratory: negative: Cough, Dry, Shortness of Breath, Hemoptysis, SOB with Excertion, Pleuritic Pain, Sputum, Wheezing Cardiovascular: negative: chest pain, palpitations, orthopnea, paroxysmal nocturnal dyspnea, edema, light headedness, other Gastrointestinal: negative: Nausea, Vomiting, Abdominal Pain, Diarrhea, Constipation, Melena, Hematochezia, Other Genitourinary: negative: Dysuria, Frequency, Incontinence, Hematuria, Retention , Other Musculoskeletal: negative: Neck Pain, Shoulder Pain, Arm Pain, Back Pain, Hand Pain, Leg Pain, Foot Pain, Other Other: not reliable with pt due to his level of alertness - Medications/Allergies Allergies/Adverse Reactions: Allergies Allergy/AdvReac Type Severity Reaction Status Date / Time No Known Allergies Allergy Verified 04/23/18 13:06 Medications: Current Medications Acetaminophen (Tylenol) 650 mg MI Q4H PRN PRN Reason: Headache/Fever or Pain Albuterol Sulfate (Albuterol Sulfate) 1.25 mg NEB Q1H PRN PRN Reason: Dyspnea/Wheezing/SOB Albuterol/Ipratropium (Duoneb) 3 ml NEB [id number] [facility] Last Admin: 04/28/18 11:21 Dose: 3 ml Artificial Tears (Tears Naturale) 0 drop EA EYE PRN PRN PRN Reason: Dry Eyes Aspirin (Ecotrin) 81 mg PO DAILY [facility] Last Admin: 04/28/18 08:24 Dose: 81 mg Calcium Carbonate (Tums) 1,000 mg PO Q4H PRN PRN Reason: Heartburn or Indigestion Cinacalcet (Sensipar) 60 mg PO DAILY-AC [facility] Last Admin: 04/28/18 08:24 Dose: 60 mg Diltiazem HCl (Cardizem) 60 mg PER TUBE Q8HR [facility] Last Admin: 04/28/18 05:33 Dose: 60 mg Famotidine (Pepcid) 20 mg PO 2100 [facility] Last Admin: 04/27/18 21:38 Dose: 20 mg Sodium Chloride (Normal Saline 0.9%) 1,000 mls @ 0 mls/hr IV .Q0M [facility] Dexmedetomidine HCl 400 mcg/ (Sodium Chloride) 100 mls @ 0 mls/hr IVPB INF [facility] ; Protocol Last Admin: 04/28/18 05:48 Dose: 100 mls Metoprolol Tartrate (Lopressor) 25 mg PO BID [facility] Last Admin: 04/28/18 08:24 Dose: 25 mg Mineral Oil/White Petrolatum (Eucerin Cream) 0 gm TOP BIDPRN PRN PRN Reason: Dry Skin Morphine Sulfate (Morphine) 2 mg SLOW IVP Q1H PRN PRN Reason: BREAKTHROUGH PAIN/AGITATION Stop: 05/23/18 16:14 Last Admin: 04/27/18 00:11 Dose: 2 mg Multivitamins/Zinc (Stress 600 With Zinc) 1 tab PO DAILY [facility] Last Admin: 04/28/18 08:24 Dose: 1 tab Ondansetron HCl (Zofran Odt) 4 mg PO Q6H PRN PRN Reason: Nausea/Vomiting Ondansetron HCl (Zofran) 4 mg IVP Q6H PRN PRN Reason: Nausea/Vomiting Rifaximin (Xifaxan) 550 mg PO BID [facility] Last Admin: 04/28/18 08:23 Dose: 550 mg Simethicone (Mylicon Chewable) 80 mg PO Q6H PRN PRN Reason: Gas Pain Sodium Chloride ([place] Nasal [place] 0.65%) 0 ml EA NARE QIDPRN PRN PRN Reason: Nasal Congestion Sodium Chloride (Flush - Normal Saline) 10 ml IVF Q12HR [facility] Last Admin: 04/28/18 08:33 Dose: 10 ml Sodium Chloride (Flush - Normal Saline) 10 ml IVF PRN PRN PRN Reason: Saline Flush
--- NOTE | 2018-04-28 15:41 | PRG ---
DATE OF SERVICE: 04/28/2018 SUBJECTIVE: The patient is extubated and is without GI complaints. He is hungry and wants to eat. OBJECTIVE: VITAL SIGNS: Temperature is 97.8, pulse is 67, respiratory rate 15, blood pressure 124/68. CHEST: Clear. CARDIOVASCULAR: Regular rate and rhythm. ABDOMEN: Soft and protuberant with ballotable liver. EXTREMITIES: Normal. LABORATORY DATA: Shows a white blood cell count of 6.7, hemoglobin 8.3, hematocrit of 26.8, platelet count is 156. Chemistries show a BUN 29 and creatinine 5.63. ASSESSMENT: 1. Cirrhosis - stable. 2. Ascites. 3. Diarrhea - resolved. 4. End-stage renal disease. RECOMMENDATIONS: 1. Continue present management. 2. Dr. Rogers is covering. Call if needed.
--- NOTE | 2018-04-28 18:23 | PDOC.CTH ---
Cardiology Progress Note - Subjective He is doing better today. more awake. No new issues. - Objective Vital Signs Temp Pulse Resp Pulse Ox 04/28/18 16:00 98.0 F 04/28/18 14:43 67 15 100 04/28/18 12:00 97.8 F 04/28/18 11:21 77 19 100 04/28/18 07:45 96 04/28/18 07:00 97.9 F 04/28/18 06:43 100 04/28/18 06:41 67 17 100 Admit Weight 126 lb 15.78 oz Weight 120 lb 13.013 oz 04/27/18 04/28/18 04/29/18 06:59 06:59 06:59 Intake Total 669 128.4 217.3 Output Total 400 0 Balance 269 128.4 217.3 - Physical Examination General/Neuro: NAD Neck: no JVD present Lungs: CTA, unlabored respirations Heart: RRR Abdomen: NT/ND Extremities: other: (no edema) - Telemetry Telemetry Rhythm: Afib HR 70's - Labs Result Diagrams: 04/28/18 04:30 04/28/18 04:30 Troponin/CKMB CK-MB (CK-2) 5.5 ng/mL (0-6.6) 04/23/18 11:51 Troponin I 0.092 ng/mL (< 0.028) H 04/23/18 11:51 - Assessment/Plan 1. Afib RVR, rate controlled now. 2. Hepatic encephalopathy 3. Chronic hep C Cirrhosis 4. ESRD on HD 5. COPD 6. HTN PLAN: - Continue aspirin alone for stroke prophylaxis. - Not a candidate for anticoagulation. - Continue rate control with CCB.
--- NOTE | 2018-04-28 18:44 | PRG ---
DATE OF SERVICE: 04/28/2018 SUBJECTIVE: Haylee Molina remains encephalopathic. He will open his eyes and follow commands, b ut he is also very confused, very similar to the last time he was intubated. It took him several day s for his mental status to improve to a functional baseline, although his mental status was not good and what I would consider normal during the entire hospitalization. OBJECTIVE: VITAL SIGNS: He is afebrile, heart rate 76, blood pressure 126/57, respiratory rate is 20. LUNGS: Clear. HEART: Regular rhythm. ABDOMEN: Soft and nontender. EXTREMITIES: Without clubbing, cyanosis, or edema. LABORATORY DATA: White count 6.7, hemoglobin 8.3, platelets 156. Sodium 138, potassium 4.4, chlorid e 100, bicarbonate 25, BUN 29, creatinine 5.63, glucose 82. IMPRESSION: 1. Status post mechanical ventilation for hepatic encephalopathy. 2. End-stage renal disease. 3. Cirrhosis. PLAN: Continue supportive care in the critical care environment for now.
[2018-04-28] MEDS: Famotidine 20 MG TAB PO SCH (19:55)
[2018-04-29 05:53] LABS: INR-International Normal Ratio 1.2; Prothrombin Time 15.7 SEC (12.0-14.7)
[2018-04-29 06:07] LABS: Anion Gap 14 mmol/L (10-20); BUN (Urea Nitrogen) 12 mg/dL (8.4-25.7); Calc. Creatinine Clearance 15 mL/min (70-130); Calcium 7.4 mg/dL (7.8-10.44); Carbon Dioxide 27 mmol/L (23-31); Chloride 99 mmol/L (98-107); Estimated GFR-MDRD 19; Glucose 92 mg/dL (80-115); Potassium 4.2 mmol/L (3.5-5.1); Sodium 136 mmol/L (136-145)
[2018-04-29 06:49] LABS: Hemoglobin 8.8 g/dL (14.0-18.0); Mean Corpuscular HGB CONC 30.9 g/dL (32.0-36.0); Mean Corpuscular Hemoglobin 28.9 pg (27.0-31.0); Mean Corpuscular Volume 93.4 fL (78.0-98.0); Mean Platelet Volume 8.1 fL (7.4-10.4); Platelet Count 179 thou/uL (130-400); Red Blood Cell (RBC) Count 3.04 mill/uL (4.70-6.10); White Blood Cell (WBC) Count 6.7 thou/uL (4.8-10.8)
[2018-04-29 06:56] LABS: Band 4 % (5-11); Eosinophils 2 % (0-10); Lymphocytes 10 % (21-51); MDiff Complete? YES; Monocytes 22 % (0-10); Neutrophil 62 % (42-75)
[2018-04-29] MEDS: Cinacalcet HCl 30 MG TAB PO SCH (09:16)
[2018-04-29] MEDS: Stress 600 With Zinc 1 TAB PO SCH (09:16)
[2018-04-29] MEDS: Rifaximin 550 MG TAB PO SCH ×2 (09:16→21:05)
[2018-04-29] MEDS: Aspirin 81 mg Enteric Coated Tablet PO SCH (09:17)
[2018-04-29] MEDS: Metoprolol Tartrate 25 MG TAB PO SCH ×2 (09:17→21:05)
--- NOTE | 2018-04-29 09:40 | RAD ---
AP CHEST: History: Ventilator dependent patient. Date: 04-29-18 Comparison: 04-28-18 FINDINGS: AP chest demonstrates a left subclavian endovascular stent in place. Cardiomegaly is seen. Pulmonary vascular congestion is seen. No significant interval change is noted since the previous comparison exam. The patient also has a TIPS stent in place. IMPRESSION: Cardiomegaly and pulmonary vascular congestion. POS: [facility]
--- NOTE | 2018-04-29 10:14 | PDOC.PN ---
- Subjective Encounter Start Date: 04/29/18 Encounter Start Time: 08:10 Patient seen and examined. No new complaints. No overnight events - Objective Resuscitation Status: Resuscitation Status FULL:Full Resuscitation MAR Reviewed: Yes Vital Signs & Weight: Vital Signs (12 hours) Temp Pulse Resp Pulse Ox 04/29/18 08:00 98.1 F 95 04/29/18 07:03 79 18 04/29/18 07:00 98.1 F 04/29/18 03:00 98.5 F 04/29/18 02:24 77 21 H 100 04/28/18 23:00 97.8 F 04/28/18 22:38 71 19 100 Weight Admit Weight 126 lb 15.78 oz Weight 120 lb 13.013 oz Most Recent Monitor Data Heart Rate from ECG 79 NIBP 154/69 NIBP BP-Mean 91 Respiration from ECG 18 SpO2 100 I&O: 04/28/18 04/29/18 04/30/18 06:59 06:59 06:59 Intake Total 128.4 569.3 0 Output Total 0 Balance 128.4 569.3 0 Result Diagrams: 04/29/18 05:32 04/29/18 05:32 Radiology Reviewed by me: Yes (chest xray reviewed ) EKG Reviewed by me: Yes (afib) Phys Exam - Physical Examination Constitutional: NAD cachectic HEENT: PERRLA, moist MMs, sclera anicteric Neck: no JVD, supple Respiratory: no wheezing, no rales, no rhonchi coarse sound Cardiovascular: no significant murmur, irregular Gastrointestinal: soft, non-tender, no distention, positive bowel sounds Musculoskeletal: no edema, pulses present Neurological: non-focal, moves all 4 limbs Lymphatic: no nodes Psychiatric: normal affect Skin: no rash, normal turgor Dx/Plan (1) Acute respiratory failure with hypoxia Code(s): J96.01 - ACUTE RESPIRATORY FAILURE WITH HYPOXIA Status: Acute Comment: s/p extubation, wean off oxygen as tolerated (2) Hepatic encephalopathy Code(s): K72.90 - HEPATIC FAILURE, UNSPECIFIED WITHOUT COMA Status: Acute Comment: Continue lactulose and rifaximin (3) Anemia of renal disease Code(s): D63.1 - ANEMIA IN CHRONIC KIDNEY DISEASE Status: Chronic (4) Chronic hepatitis C Code(s): B18.2 - CHRONIC VIRAL HEPATITIS C Status: Chronic (5) Cirrhosis of liver Code(s): K74.60 - UNSPECIFIED CIRRHOSIS OF LIVER Status: Chronic (6) ESRD (end stage renal disease) on dialysis Code(s): N18.6 - END STAGE RENAL DISEASE; Z99.2 - DEPENDENCE ON RENAL DIALYSIS Status: Chronic Comment: HD per Renal service (7) Elevated troponin Code(s): R74.8 - ABNORMAL LEVELS OF OTHER SERUM ENZYMES Status: Chronic (8) GERD (gastroesophageal reflux disease) Code(s): K21.9 - GASTRO-ESOPHAGEAL REFLUX DISEASE WITHOUT ESOPHAGITIS Status: Chronic (9) PAF (paroxysmal atrial fibrillation) Code(s): I48.0 - PAROXYSMAL ATRIAL FIBRILLATION Status: Chronic (10) Secondary hyperparathyroidism of renal origin Code(s): N25.81 - SECONDARY HYPERPARATHYROIDISM OF RENAL ORIGIN Status: Chronic - Plan cont current plan of care * monitor in CCU as per pulmonary * continue HD as per schedule * medication reviewed as below * symptomatic treatment * continue lactulose and rifaximin * 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 Review of Systems - Review of Systems ENT: negative: Ear Pain, Ear Discharge, Nose Pain, Nose Discharge, Nose Congestion, Mouth Pain, Mouth Swelling, Throat Pain, Throat Swelling, Other Respiratory: negative: Cough, Dry, Shortness of Breath, Hemoptysis, SOB with Excertion, Pleuritic Pain, Sputum, Wheezing Cardiovascular: negative: chest pain, palpitations, orthopnea, paroxysmal nocturnal dyspnea, edema, light headedness, other Gastrointestinal: negative: Nausea, Vomiting, Abdominal Pain, Diarrhea, Constipation, Melena, Hematochezia, Other Genitourinary: negative: Dysuria, Frequency, Incontinence, Hematuria, Retention , Other Musculoskeletal: negative: Neck Pain, Shoulder Pain, Arm Pain, Back Pain, Hand Pain, Leg Pain, Foot Pain, Other Other: not reliable due to his level of cognitive status - Medications/Allergies Allergies/Adverse Reactions: Allergies Allergy/AdvReac Type Severity Reaction Status Date / Time No Known Allergies Allergy Verified 04/23/18 13:06 Medications: Current Medications Acetaminophen (Tylenol) 650 mg DE Q4H PRN PRN Reason: Headache/Fever or Pain Albuterol Sulfate (Albuterol Sulfate) 1.25 mg NEB Q1H PRN PRN Reason: Dyspnea/Wheezing/SOB Albuterol/Ipratropium (Duoneb) 3 ml NEB [id number] [facility] Last Admin: 04/29/18 07:03 Dose: 3 ml Artificial Tears (Tears Naturale) 0 drop EA EYE PRN PRN PRN Reason: Dry Eyes Aspirin (Ecotrin) 81 mg PO DAILY [facility] Last Admin: 04/29/18 09:17 Dose: 81 mg Calcium Carbonate (Tums) 1,000 mg PO Q4H PRN PRN Reason: Heartburn or Indigestion Cinacalcet (Sensipar) 60 mg PO DAILY-AC [facility] Last Admin: 04/29/18 09:16 Dose: 60 mg Diltiazem HCl (Cardizem) 60 mg PER TUBE Q8HR [facility] Last Admin: 04/29/18 05:12 Dose: 60 mg Famotidine (Pepcid) 20 mg PO 2100 [facility] Last Admin: 04/28/18 19:55 Dose: 20 mg Sodium Chloride (Normal Saline 0.9%) 1,000 mls @ 0 mls/hr IV .Q0M [facility] Dexmedetomidine HCl 400 mcg/ (Sodium Chloride) 100 mls @ 0 mls/hr IVPB INF [facility] ; Protocol Last Admin: 04/28/18 05:48 Dose: 100 mls Metoprolol Tartrate (Lopressor) 25 mg PO BID [facility] Last Admin: 04/29/18 09:17 Dose: 25 mg Mineral Oil/White Petrolatum (Eucerin Cream) 0 gm TOP BIDPRN PRN PRN Reason: Dry Skin Morphine Sulfate (Morphine) 2 mg SLOW IVP Q1H PRN PRN Reason: BREAKTHROUGH PAIN/AGITATION Stop: 05/23/18 16:14 Last Admin: 04/27/18 00:11 Dose: 2 mg Multivitamins/Zinc (Stress 600 With Zinc) 1 tab PO DAILY [facility] Last Admin: 04/29/18 09:16 Dose: 1 tab Ondansetron HCl (Zofran Odt) 4 mg PO Q6H PRN PRN Reason: Nausea/Vomiting Ondansetron HCl (Zofran) 4 mg IVP Q6H PRN PRN Reason: Nausea/Vomiting Rifaximin (Xifaxan) 550 mg PO BID [facility] Last Admin: 04/29/18 09:16 Dose: 550 mg Simethicone (Mylicon Chewable) 80 mg PO Q6H PRN PRN Reason: Gas Pain Sodium Chloride ([place] Nasal [place] 0.65%) 0 ml EA NARE QIDPRN PRN PRN Reason: Nasal Congestion Sodium Chloride (Flush - Normal Saline) 10 ml IVF Q12HR [facility] Last Admin: 04/29/18 09:17 Dose: Not Given Sodium Chloride (Flush - Normal Saline) 10 ml IVF PRN PRN PRN Reason: Saline Flush
--- NOTE | 2018-04-29 11:18 | PRG ---
DATE OF SERVICE: 04/29/2018 SUBJECTIVE: This is a 67-year-old gentleman being seen for end-stage renal disease. Patient denies any nausea, vomiting or chest pain. PHYSICAL EXAMINATION: GENERAL: Patient is resting. VITAL SIGNS: Afebrile, pulse 79, breathing 16, blood pressure 150/69. HEAD/NECK: Normocephalic. Atraumatic. EYES: EOMI. No deformity. EARS: Clear. No ulcers. NOSE: Intact. No lesions. MOUTH: Clear. No discharge. THROAT: Clear. No exudate. LUNGS: Clear. No crackles. CARDIAC: S1, S2. No rub. ABDOMEN: Benign. BS+. GENITALIA/RECTUM: Rosario absent. BACK/EXTREMITIES: Edema 0+ Ulcer- NEUROLOGICAL: Alert and motor intact. SKIN: Rash- Bruise- LYMPHATICS: Edema- Ulcer- LABORATORY DATA: Show hemoglobin 8.8. ASSESSMENT AND RECOMMENDATIONS: 1. Stage 6 chronic kidney disease, stable. 2. Hypertension, stable. 3. Anemia, stable. 4. Medications based on glomerular filtration rate are appropriate. We will plan dialysis Tuesday.
--- NOTE | 2018-04-29 13:13 | PDOC.CTH ---
Cardiology Progress Note - Subjective No new issues. Remains a little confused and had to be restrained. - Objective Vital Signs Temp Pulse Resp Pulse Ox 04/29/18 10:50 98.0 F 04/29/18 10:37 79 18 04/29/18 08:00 98.1 F 95 04/29/18 07:03 79 18 04/29/18 07:00 98.1 F 04/29/18 03:00 98.5 F 04/29/18 02:24 77 21 H 100 Admit Weight 126 lb 15.78 oz Weight 120 lb 13.013 oz 04/28/18 04/29/18 04/30/18 06:59 06:59 06:59 Intake Total 128.4 569.3 130 Output Total 0 Balance 128.4 569.3 130 - Physical Examination General/Neuro: NAD Neck: no JVD present Lungs: CTA, unlabored respirations Heart: other: (Irregular) Abdomen: other: (Mild ascitis) Extremities: + edema B (no edema) - Telemetry Telemetry Rhythm: Afib HR 70's. - Labs Result Diagrams: 04/29/18 05:32 04/29/18 05:32 Troponin/CKMB CK-MB (CK-2) 5.5 ng/mL (0-6.6) 04/23/18 11:51 Troponin I 0.092 ng/mL (< 0.028) H 04/23/18 11:51 - Assessment/Plan 1. Afib RVR, rate controlled. 2. Hepatic encephalopathy 3. Chronic hep C Cirrhosis 4. ESRD on HD 5. COPD 6. HTN PLAN: - Continue aspirin alone for stroke prophylaxis. - Not a candidate for anticoagulation. - Continue rate control with CCB. - May transfer to floor from cardiac perspective.
--- NOTE | 2018-04-29 16:08 | EKG ---
Test Reason : AMS Blood Pressure : / mmHG Vent. Rate : 058 BPM Atrial Rate : 227 BPM P-R Int : 000 ms QRS Dur : 110 ms QT Int : 520 ms P-R-T Axes : 233 -54 151 degrees QTc Int : 510 ms Atrial flutter with 4:1 A-V conduction Left anterior fascicular block Left ventricular hypertrophy with repolarization abnormality Prolonged QT Abnormal ECG Confirmed by QUYNH CARRERO, LINDA ([id number]), scientific editor YOMI LANTIGUA ([id number] on 04/29/2018 4:07:50 PM Referred By: Confirmed By:LINDA BEAUCHAMP MD
[2018-04-29] MEDS: Diltiazem HCl 125 MG, Admixture Fee 1 EACH in Sodium Chloride 0.9% 100 ML IVPB SCH (19:09)
[2018-04-29] MEDS: Famotidine 20 MG TAB PO SCH (21:05)
--- NOTE | 2018-04-29 22:23 | PRG ---
DATE OF SERVICE: 04/29/2018 SUBJECTIVE: Mr. Molina is still only oriented to person. OBJECTIVE: VITAL SIGNS: He is afebrile, heart rate 107, blood pressure 129/68, respiratory rates in the teens, oximetry is 97%. LUNGS: Clear. HEART: Regular rhythm. ABDOMEN: Soft. LABORATORY DATA AND IMAGING: White count 6.7, hemoglobin 8.8, platelets 179. Sodium 136, potassium 4.2, chloride 99, bicarbonate 27, BUN 12, creatinine 3.87. Chest radiograph shows interstitial edema . IMPRESSION AND PLAN: 1. End-stage renal disease. 2. Cirrhosis. 3. Recent intubation x2 for hepatic encephalopathy. I see no way that he will be able to care for himself at home in the future. Arrangements for placem ent in a senior care environment are the next step in my opinion unless family opts for hospice and dialysis was withdrawn. The prognosis of any type of functional life I think is extremely poor.
[2018-04-30 04:23] LABS: Anion Gap 18 mmol/L (10-20); BUN (Urea Nitrogen) 21 mg/dL (8.4-25.7); Calc. Creatinine Clearance 11 mL/min (70-130); Calcium 7.1 mg/dL (7.8-10.44); Carbon Dioxide 21 mmol/L (23-31); Chloride 101 mmol/L (98-107); Estimated GFR-MDRD 13; Glucose 81 mg/dL (80-115); Sodium 135 mmol/L (136-145)
[2018-04-30 04:30] LABS: Band 6 % (5-11); Hemoglobin 9.5 g/dL (14.0-18.0); Lymphocytes 9 % (21-51); MDiff Complete? YES; Mean Corpuscular HGB CONC 30.4 g/dL (32.0-36.0); Mean Corpuscular Hemoglobin 28.2 pg (27.0-31.0); Mean Corpuscular Volume 92.9 fL (78.0-98.0); Mean Platelet Volume 9.8 fL (7.4-10.4); Monocytes 19 % (0-10); Neutrophil 66 % (42-75); Nucleated RBC 1 % (0); PLT Morphology Comment Appears Decreased; Platelet Count 110 thou/uL (130-400); RBC Distribution Width 18.1 % (11.5-14.5); Red Blood Cell (RBC) Count 3.37 mill/uL (4.70-6.10); White Blood Cell (WBC) Count 12.7 thou/uL (4.8-10.8)
[2018-04-30] MEDS: Cinacalcet HCl 30 MG TAB PO SCH (08:30)
[2018-04-30] MEDS: Aspirin 81 mg Enteric Coated Tablet PO SCH (08:39)
[2018-04-30] MEDS: Rifaximin 550 MG TAB PO SCH ×2 (08:39→20:20)
[2018-04-30] MEDS: Metoprolol Tartrate 25 MG TAB PO SCH ×2 (08:39→20:20)
[2018-04-30] MEDS: Stress 600 With Zinc 1 TAB PO SCH ×2 (08:52→09:02)
--- NOTE | 2018-04-30 10:09 | PDOC.PN ---
- Subjective Encounter Start Date: 04/30/18 Encounter Start Time: 08:40 yesterday pt has afib with RVR, so cardizem drip was started, Patient seen and examined. No overnight events - Objective Resuscitation Status: Resuscitation Status FULL:Full Resuscitation MAR Reviewed: Yes Vital Signs & Weight: Vital Signs (12 hours) Temp Pulse Resp Pulse Ox 04/30/18 08:00 98.6 F 100 04/30/18 07:04 79 20 04/30/18 03:00 98.4 F 04/30/18 02:24 73 19 100 04/29/18 23:00 98.7 F 04/29/18 22:47 90 20 92 L Weight Admit Weight 126 lb 15.78 oz Weight 120 lb 13.013 oz Most Recent Monitor Data Heart Rate from ECG 76 NIBP 134/62 NIBP BP-Mean 92 Respiration from ECG 23 SpO2 100 I&O: 04/29/18 04/30/18 05/01/18 06:59 06:59 06:59 Intake Total 569.3 643 200 Output Total 0 Balance 569.3 643 200 Result Diagrams: 04/30/18 03:50 04/30/18 03:49 EKG Reviewed by me: Yes (afib) Phys Exam - Physical Examination Constitutional: NAD cachectic HEENT: PERRLA, sclera anicteric Neck: no JVD, supple Respiratory: no wheezing, no rales, no rhonchi Cardiovascular: no significant murmur, irregular Gastrointestinal: soft, non-tender, no distention, positive bowel sounds Musculoskeletal: no edema, pulses present Neurological: moves all 4 limbs Lymphatic: no nodes Psychiatric: normal affect Skin: no rash, normal turgor Dx/Plan (1) Acute respiratory failure with hypoxia Code(s): J96.01 - ACUTE RESPIRATORY FAILURE WITH HYPOXIA Status: Acute Comment: s/p extubation, wean off oxygen as tolerated (2) Hepatic encephalopathy Code(s): K72.90 - HEPATIC FAILURE, UNSPECIFIED WITHOUT COMA Status: Acute Comment: Continue lactulose and rifaximin (3) Anemia of renal disease Code(s): D63.1 - ANEMIA IN CHRONIC KIDNEY DISEASE Status: Chronic (4) Chronic hepatitis C Code(s): B18.2 - CHRONIC VIRAL HEPATITIS C Status: Chronic (5) Cirrhosis of liver Code(s): K74.60 - UNSPECIFIED CIRRHOSIS OF LIVER Status: Chronic (6) ESRD (end stage renal disease) on dialysis Code(s): N18.6 - END STAGE RENAL DISEASE; Z99.2 - DEPENDENCE ON RENAL DIALYSIS Status: Chronic Comment: HD per Renal service (7) Elevated troponin Code(s): R74.8 - ABNORMAL LEVELS OF OTHER SERUM ENZYMES Status: Chronic (8) GERD (gastroesophageal reflux disease) Code(s): K21.9 - GASTRO-ESOPHAGEAL REFLUX DISEASE WITHOUT ESOPHAGITIS Status: Chronic (9) PAF (paroxysmal atrial fibrillation) Code(s): I48.0 - PAROXYSMAL ATRIAL FIBRILLATION Status: Chronic Comment: with paroxysmal RVR (10) Secondary hyperparathyroidism of renal origin Code(s): N25.81 - SECONDARY HYPERPARATHYROIDISM OF RENAL ORIGIN Status: Chronic (11) Protein-calorie malnutrition, severe Code(s): E43 - UNSPECIFIED SEVERE PROTEIN-CALORIE MALNUTRITION Status: Chronic - Plan cont current plan of care * continue cardizem for rate control, he is not a candidate for anticoagulation * will consider transfer to [facility] if pulmonary ok * he will need placement * his prognosis is very poor * medication reviewed as below * symptomatic treatment * supportive care. * HD as per nephrology Review of Systems - Review of Systems ENT: negative: Ear Pain, Ear Discharge, Nose Pain, Nose Discharge, Nose Congestion, Mouth Pain, Mouth Swelling, Throat Pain, Throat Swelling, Other Respiratory: negative: Cough, Dry, Shortness of Breath, Hemoptysis, SOB with Excertion, Pleuritic Pain, Sputum, Wheezing Cardiovascular: negative: chest pain, palpitations, orthopnea, paroxysmal nocturnal dyspnea, edema, light headedness, other Gastrointestinal: negative: Nausea, Vomiting, Abdominal Pain, Diarrhea, Constipation, Melena, Hematochezia, Other Genitourinary: negative: Dysuria, Frequency, Incontinence, Hematuria, Retention , Other Other: not reliable with pt due to his level of cognitive status - Medications/Allergies Allergies/Adverse Reactions: Allergies Allergy/AdvReac Type Severity Reaction Status Date / Time No Known Allergies Allergy Verified 04/23/18 13:06 Medications: Current Medications Acetaminophen (Tylenol) 650 mg CO Q4H PRN PRN Reason: Headache/Fever or Pain Last Admin: 04/29/18 18:32 Dose: 650 mg Albuterol/Ipratropium (Duoneb) 3 ml NEB [id number] [facility] Last Admin: 04/30/18 07:04 Dose: 3 ml Artificial Tears (Tears Naturale) 0 drop EA EYE PRN PRN PRN Reason: Dry Eyes Aspirin (Ecotrin) 81 mg PO DAILY [facility] Last Admin: 04/30/18 08:39 Dose: 81 mg Calcium Carbonate (Tums) 1,000 mg PO Q4H PRN PRN Reason: Heartburn or Indigestion Cinacalcet (Sensipar) 60 mg PO DAILY-AC [facility] Last Admin: 04/30/18 08:30 Dose: 60 mg Diltiazem HCl (Cardizem) 60 mg PER TUBE Q8HR [facility] Last Admin: 04/30/18 05:14 Dose: 60 mg Famotidine (Pepcid) 20 mg PO 2100 [facility] Last Admin: 04/29/18 21:05 Dose: 20 mg Sodium Chloride (Normal Saline 0.9%) 1,000 mls @ 0 mls/hr IV .Q0M [facility] Diltiazem HCl 125 mg/Miscellaneous Medication 1 each/ Sodium Chloride 125 mls @ 5 mls/hr IVPB INF [facility]; Protocol Last Admin: 04/29/18 19:09 Dose: 125 mls Metoprolol Tartrate (Lopressor) 25 mg PO BID [facility] Last Admin: 04/30/18 08:39 Dose: 25 mg Mineral Oil/White Petrolatum (Eucerin Cream) 0 gm TOP BIDPRN PRN PRN Reason: Dry Skin Morphine Sulfate (Morphine) 2 mg SLOW IVP Q1H PRN PRN Reason: BREAKTHROUGH PAIN/AGITATION Stop: 05/23/18 16:14 Last Admin: 04/27/18 00:11 Dose: 2 mg Multivitamins/Zinc (Stress 600 With Zinc) 1 tab PO DAILY [facility] Last Admin: 04/30/18 09:02 Dose: 1 tab Ondansetron HCl (Zofran Odt) 4 mg PO Q6H PRN PRN Reason: Nausea/Vomiting Ondansetron HCl (Zofran) 4 mg IVP Q6H PRN PRN Reason: Nausea/Vomiting Rifaximin (Xifaxan) 550 mg PO BID [facility] Last Admin: 04/30/18 08:39 Dose: 550 mg Simethicone (Mylicon Chewable) 80 mg PO Q6H PRN PRN Reason: Gas Pain Sodium Chloride ([place] Nasal [place] 0.65%) 0 ml EA NARE QIDPRN PRN PRN Reason: Nasal Congestion Sodium Chloride (Flush - Normal Saline) 10 ml IVF Q12HR [facility] Last Admin: 04/30/18 08:48 Dose: Not Given Sodium Chloride (Flush - Normal Saline) 10 ml IVF PRN PRN PRN Reason: Saline Flush
[2018-04-30] MEDS ORDERED: Chloraseptic Spray 180 ml Bottle PO PRN (10:53)
[2018-04-30] MEDS ORDERED: Senokot 8.6 MG TAB PO PRN (10:53)
[2018-04-30] MEDS ORDERED: Milk Of Magnesia 30 ML UDCUP PO PRN (10:53)
[2018-04-30] MEDS ORDERED: Diabetic Tussin 200 MG/10 ML UDCUP PO PRN (10:53)
[2018-04-30] MEDS ORDERED: Acetaminophen 325 MG TAB PO PRN (10:53)
--- NOTE | 2018-04-30 11:26 | PRG ---
DATE OF SERVICE: 04/30/2018 SUBJECTIVE: A 67-year-old gentleman being seen for end-stage renal disease. The patient denies any nausea, vomiting or chest pain. PHYSICAL EXAMINATION: GENERAL: The patient is awake and alert, in no acute distress. VITAL SIGNS: Afebrile, pulse 74, breathing 16, blood pressure 134/62. GENERAL APPEARANCE AND MENTAL STATUS: Fair. HEAD/NECK: Normocephalic. Atraumatic. EYES: EOMI. No deformity. EARS: Clear. No ulcers. NOSE: Intact. No lesions. MOUTH: Clear. No discharge. THROAT: Clear. No exudate. LUNGS: Clear. No crackles. CARDIAC: S1, S2. No rub. ABDOMEN: Benign. BS+. GENITALIA/RECTUM: Rosario absent. BACK/EXTREMITIES: Edema 0+. Ulcer-. NEUROLOGICAL: Alert and motor intact. SKIN: Rash-. Bruise-. LYMPHATICS: Edema-. Ulcer-. LABORATORY DATA: Showed hemoglobin 9.5. ASSESSMENT AND PLAN: 1. Stage 6 chronic kidney disease, stable. 2. Hypertension, stable. 3. Anemia, stable. We will plan dialysis tomorrow.
[2018-04-30] MEDS: Diltiazem HCl 125 MG, Admixture Fee 1 EACH in Sodium Chloride 0.9% 100 ML IVPB SCH (17:31)
--- NOTE | 2018-04-30 17:40 | PDOC.CTH ---
Cardiology Progress Note - Subjective no new issues. - Objective Vital Signs Temp Pulse Resp BP Pulse Ox 04/30/18 15:08 99.7 F H 92 97/62 04/30/18 14:58 91 20 95 04/30/18 11:54 84 20 97 04/30/18 08:00 98.6 F 100 04/30/18 07:04 79 20 Admit Weight 126 lb 15.78 oz Weight 120 lb 13.013 oz 04/29/18 04/30/18 05/01/18 06:59 06:59 06:59 Intake Total 569.3 643 260 Output Total 0 Balance 569.3 643 260 - Physical Examination General/Neuro: NAD Neck: no JVD present Lungs: CTA, unlabored respirations Heart: RRR Abdomen: other: (ascitis) Extremities: other: (no edema) - Telemetry Telemetry Rhythm: Afib HR 60's - Labs Result Diagrams: 04/30/18 03:50 04/30/18 03:49 Troponin/CKMB CK-MB (CK-2) 5.5 ng/mL (0-6.6) 04/23/18 11:51 Troponin I 0.092 ng/mL (< 0.028) H 04/23/18 11:51 - Assessment/Plan 1. Afib RVR, rate controlled. 2. Hepatic encephalopathy 3. Chronic hep C Cirrhosis 4. ESRD on HD 5. COPD 6. HTN PLAN: - Continue aspirin alone for stroke prophylaxis. - Not a candidate for anticoagulation. - Continue rate control with CCB.
--- NOTE | 2018-04-30 17:56 | PRG ---
DATE OF SERVICE: 04/30/2018 SUBJECTIVE: Haylee Molina remains stable. He is in no distress. Moves all of his extremities. He is still encephalopathic, but he is cooperative. OBJECTIVE: LUNGS: Clear. HEART: Regular rhythm. ABDOMEN: Soft. VITAL SIGNS: Remained stable. IMPRESSION: 1. End-stage renal disease, on dialysis. 2. End-stage cirrhosis. 3. Chronic recurrent hepatic encephalopathy. 4. Anemia of chronic disease. I do not see any way he can ever go home. He really needs hospice care and consideration should be given towards withdrawal of dialysis support . He is stable to move out of the Critical Care Unit.
[2018-04-30] MEDS: Cefepime 1 GM in Sodium Chloride 0.9% 100 ML IVPB SCH (18:17)
[2018-04-30] MEDS: Famotidine 20 MG TAB PO SCH (20:20)
[2018-05-01 04:29] LABS: Band 32 % (5-11); Hemoglobin 9.2 g/dL (14.0-18.0); Lymphocytes 11 % (21-51); MDiff Complete? YES; Mean Corpuscular HGB CONC 30.2 g/dL (32.0-36.0); Mean Corpuscular Hemoglobin 28.3 pg (27.0-31.0); Mean Corpuscular Volume 93.9 fL (78.0-98.0); Mean Platelet Volume 9.1 fL (7.4-10.4); Metamyelocyte 3 % (0-0); Monocytes 15 % (0-10); Neutrophil 39 % (42-75); Platelet Count 193 thou/uL (130-400); RBC Distribution Width 18.1 % (11.5-14.5); Red Blood Cell (RBC) Count 3.25 mill/uL (4.70-6.10); White Blood Cell (WBC) Count 13.8 thou/uL (4.8-10.8)
[2018-05-01 04:31] LABS: Anion Gap 22 mmol/L (10-20); BUN (Urea Nitrogen) 43 mg/dL (8.4-25.7); Calc. Creatinine Clearance 8 mL/min (70-130); Calcium 7.1 mg/dL (7.8-10.44); Carbon Dioxide 19 mmol/L (23-31); Chloride 100 mmol/L (98-107); Estimated GFR-MDRD 9; Magnesium 1.6 mg/dL (1.6-2.6); Sodium 135 mmol/L (136-145)
[2018-05-01 04:34] LABS: Glucose 37 mg/dL (80-115)
[2018-05-01] MEDS ORDERED: Dextrose 50% Abboject 50 ML SYRINGE ONE ×3 (04:38→21:52)
[2018-05-01] MEDS ORDERED: Dextrose 5 % And 0.9 % NaCl 1,000 ML IV SCH (07:30)
[2018-05-01] MEDS: Aspirin 81 mg Enteric Coated Tablet PO SCH ×2 (07:47→12:49)
[2018-05-01] MEDS: Metoprolol Tartrate 25 MG TAB PO SCH ×3 (07:47→22:33)
[2018-05-01] MEDS: Cinacalcet HCl 30 MG TAB PO SCH ×2 (07:47→12:48)
[2018-05-01] MEDS: Rifaximin 550 MG TAB PO SCH ×3 (07:48→20:13)
--- NOTE | 2018-05-01 10:21 | PRG ---
DATE OF SERVICE: 05/01/2018 Mr. Molina is clinically unchanged. Apparently 2 out of 2 blood cultures were positive yesterday for gram negative rods. He is on cefepime now. Source is unclear. I would wonder if he does not have spontaneous bacterial peritonitis with bacteremia. His last chest radiograph did not show any alveolar infiltrates. He remains confused. He is in no distress. PHYSICAL EXAMINATION: LUNGS: His lungs are clear. CARDIOVASCULAR: Regular rhythm. ABDOMEN: Soft. IMPRESSION AND PLAN: Gram negative bacteremia of unclear source. All IVs should be replaced with ne w ones. We will await sensitivities.
--- NOTE | 2018-05-01 10:48 | PDOC.PN ---
- Subjective Encounter Start Date: 05/01/18 Encounter Start Time: 10:00 pt has hypoglycemia, he is very weak, he has positive blood culture - Objective Resuscitation Status: Resuscitation Status FULL:Full Resuscitation MAR Reviewed: Yes Vital Signs & Weight: Vital Signs (12 hours) Temp Pulse Resp BP Pulse Ox 05/01/18 10:41 89 18 05/01/18 07:45 97.4 F L 82 22 H 102/67 100 05/01/18 07:41 95 05/01/18 07:39 84 19 95 05/01/18 03:59 97.8 F 97 24 H 113/67 95 05/01/18 02:16 96 05/01/18 02:15 98 04/30/18 23:53 98.2 F 86 24 H 94/56 L 94 L 04/30/18 22:58 92 L Weight Admit Weight 126 lb 15.78 oz Weight 120 lb 13.013 oz Most Recent Monitor Data Heart Rate from ECG 80 NIBP 114/66 NIBP BP-Mean 97 Respiration from ECG 26 SpO2 100 I&O: 04/30/18 05/01/18 05/02/18 06:59 06:59 06:59 Intake Total 643 974 Output Total 0 Balance 643 974 Result Diagrams: 05/01/18 03:59 05/01/18 03:59 Additional Labs: Accuchecks 05/01/18 05/01/18 05:33 05:01 POC Glucose 135 H 75 EKG Reviewed by me: Yes (afib) Phys Exam - Physical Examination Constitutional: NAD cachectic HEENT: PERRLA, moist MMs, sclera anicteric Neck: no JVD, supple Respiratory: no wheezing, no rales, no rhonchi Cardiovascular: no significant murmur, irregular Gastrointestinal: soft, non-tender, no distention, positive bowel sounds Musculoskeletal: no edema, pulses present Neurological: moves all 4 limbs Lymphatic: no nodes Psychiatric: normal affect Skin: no rash, normal turgor Dx/Plan (1) Acute respiratory failure with hypoxia Code(s): J96.01 - ACUTE RESPIRATORY FAILURE WITH HYPOXIA Status: Acute Comment: s/p extubation, wean off oxygen as tolerated (2) Hepatic encephalopathy Code(s): K72.90 - HEPATIC FAILURE, UNSPECIFIED WITHOUT COMA Status: Acute Comment: Continue lactulose and rifaximin (3) Anemia of renal disease Code(s): D63.1 - ANEMIA IN CHRONIC KIDNEY DISEASE Status: Chronic (4) Chronic hepatitis C Code(s): B18.2 - CHRONIC VIRAL HEPATITIS C Status: Chronic (5) Cirrhosis of liver Code(s): K74.60 - UNSPECIFIED CIRRHOSIS OF LIVER Status: Chronic (6) ESRD (end stage renal disease) on dialysis Code(s): N18.6 - END STAGE RENAL DISEASE; Z99.2 - Status: Chronic Comment: HD per Renal service (7) Elevated troponin Code(s): R74.8 - ABNORMAL LEVELS OF OTHER SERUM ENZYMES Status: Chronic (8) GERD (gastroesophageal reflux disease) Code(s): K21.9 - GASTRO-ESOPHAGEAL REFLUX DISEASE WITHOUT ESOPHAGITIS Status: Chronic (9) PAF (paroxysmal atrial fibrillation) Code(s): I48.0 - PAROXYSMAL ATRIAL FIBRILLATION Status: Chronic Comment: with paroxysmal RVR (10) Secondary hyperparathyroidism of renal origin Code(s): N25.81 - SECONDARY HYPERPARATHYROIDISM OF RENAL ORIGIN Status: Chronic (11) Protein-calorie malnutrition, severe Code(s): E43 - UNSPECIFIED SEVERE PROTEIN-CALORIE MALNUTRITION Status: Chronic (12) Bacteremia due to Gram-negative bacteria Code(s): R78.81 - BACTEREMIA Status: Acute (13) Hyperkalemia Code(s): E87.5 - HYPERKALEMIA Status: Acute (14) Hypoglycemia Code(s): E16.2 - HYPOGLYCEMIA, UNSPECIFIED Status: Acute (15) Sepsis due to Gram negative bacteria Code(s): A41.50 - GRAM-NEGATIVE SEPSIS, UNSPECIFIED Status: Acute - Plan cont current plan of care, continue antibiotics, psychologist social * continue cefepime * HD as per nephrology * pt and family not agreeable to hospice * he is not ready for discharge yet and he is very high risk for readmission * prognosis is very poor * medication reviewed as below * symptomatic treatment * start DNS at KVO rate Review of Systems - Review of Systems Constitutional: weakness. negative: fever, chills, sweats, malaise, other ENT: negative: Ear Pain, Ear Discharge, Nose Pain, Nose Discharge, Nose Congestion, Mouth Pain, Mouth Swelling, Throat Pain, Throat Swelling, Other Respiratory: negative: Cough, Dry, Shortness of Breath, Hemoptysis, SOB with Excertion, Pleuritic Pain, Sputum, Wheezing Cardiovascular: negative: chest pain, palpitations, orthopnea, paroxysmal nocturnal dyspnea, edema, light headedness, other Gastrointestinal: negative: Nausea, Vomiting, Abdominal Pain, Diarrhea, Constipation, Melena, Hematochezia, Other Genitourinary: negative: Dysuria, Frequency, Incontinence, Hematuria, Retention , Other Musculoskeletal: negative: Neck Pain, Shoulder Pain, Arm Pain, Back Pain, Hand Pain, Leg Pain, Foot Pain, Other Other: not reliable due to his level of cognitive status - Medications/Allergies Allergies/Adverse Reactions: Allergies Allergy/AdvReac Type Severity Reaction Status Date / Time No Known Allergies Allergy Verified 04/23/18 13:06 Medications: Current Medications Acetaminophen (Tylenol) 650 mg VA Q4H PRN PRN Reason: Headache/Fever or Pain Last Admin: 04/29/18 18:32 Dose: 650 mg Acetaminophen (Tylenol) 650 mg PO Q4H PRN PRN Reason: Headache/Fever or Mild Pain Albuterol/Ipratropium (Duoneb) 3 ml NEB [id number] [facility] Last Admin: 05/01/18 10:41 Dose: 3 ml Artificial Tears (Tears Naturale) 0 drop EA EYE PRN PRN PRN Reason: Dry Eyes Aspirin (Ecotrin) 81 mg PO DAILY [facility] Last Admin: 05/01/18 07:47 Dose: Not Given Calcium Carbonate (Tums) 1,000 mg PO Q4H PRN PRN Reason: Heartburn or Indigestion Cinacalcet (Sensipar) 60 mg PO DAILY-AC [facility] Last Admin: 05/01/18 07:47 Dose: Not Given Diltiazem HCl (Cardizem) 60 mg PER TUBE Q8HR [facility] Last Admin: 05/01/18 06:14 Dose: Not Given Famotidine (Pepcid) 20 mg PO 2100 [facility] Last Admin: 04/30/18 20:20 Dose: Not Given Guaifenesin (Robitussin Sf) 200 mg PO Q4H PRN PRN Reason: Cough Diltiazem HCl 125 mg/Miscellaneous Medication 1 each/ Sodium Chloride 125 mls @ 5 mls/hr IVPB INF [facility]; Protocol Last Admin: 04/30/18 17:31 Dose: 125 mls Cefepime HCl 1 gm/ Sodium (Chloride) 100 mls @ 200 mls/hr IVPB Q24HR@1800 [facility] Last Admin: 04/30/18 18:17 Dose: 100 mls Dextrose/Sodium Chloride (D5 0.9% Ns) 1,000 mls @ 0 mls/hr IV .Q0M [facility] Lactulose (Lactulose) 20 gm PO DAILY [facility] Last Admin: 05/01/18 07:47 Dose: Not Given Magnesium Hydroxide (Milk Of Magnesium) 30 ml PO DAILYPRN PRN PRN Reason: Constipation Metoprolol Tartrate (Lopressor) 25 mg PO BID [facility] Last Admin: 05/01/18 07:47 Dose: Not Given Mineral Oil/White Petrolatum (Eucerin Cream) 0 gm TOP BIDPRN PRN PRN Reason: Dry Skin Morphine Sulfate (Morphine) 2 mg SLOW IVP Q4H PRN PRN Reason: Moderate to Severe Pain (4-10) Last Admin: 05/01/18 05:46 Dose: 2 mg Multivitamins/Zinc (Stress 600 With Zinc) 1 tab PO DAILY [facility] Last Admin: 04/30/18 09:02 Dose: 1 tab Ondansetron HCl (Zofran Odt) 4 mg PO Q6H PRN PRN Reason: Nausea/Vomiting Ondansetron HCl (Zofran) 4 mg IVP Q6H PRN PRN Reason: Nausea/Vomiting Phenol (Chloraseptic [place] 180 Ml Bot) 0 ml PO PRN PRN PRN Reason: Sore Throat Rifaximin (Xifaxan) 550 mg PO BID [facility] Last Admin: 05/01/18 07:48 Dose: Not Given Senna (Senokot) 2 tab PO HSPRN PRN PRN Reason: Constipation Simethicone (Mylicon Chewable) 80 mg PO Q6H PRN PRN Reason: Gas Pain Sodium Chloride ([place] Nasal [place] 0.65%) 0 ml EA NARE QIDPRN PRN PRN Reason: Nasal Congestion Sodium Chloride (Flush - Normal Saline) 10 ml IVF Q12HR [facility] Last Admin: 05/01/18 07:48 Dose: Not Given Sodium Chloride (Flush - Normal Saline) 10 ml IVF PRN PRN PRN Reason: Saline Flush Last Admin: 05/01/18 05:47 Dose: 10 ml
[2018-05-01 11:38] LABS: HBSAg Index 0.27 S/CO (0-0.99); Hep B Surf Ag Non-Reactive S/CO (NonReactive)
[2018-05-01] MEDS ORDERED: Morphine 2 MG/ML SYRINGE SLOW IVP PRN (12:05)
--- NOTE | 2018-05-01 15:24 | PDOC.CTH ---
Cardiology Progress Note - Subjective Went into RVR overnight and was switched to a IV diltazem drip. Currently he is on Dialysis and HR better in the 60's to 70's. - Objective Vital Signs Temp Pulse Resp BP Pulse Ox 05/01/18 12:00 96.6 F L 117 H 20 106/71 90 L 05/01/18 10:41 89 18 05/01/18 07:45 97.4 F L 82 22 H 102/67 100 05/01/18 07:41 95 05/01/18 07:39 84 19 95 05/01/18 03:59 97.8 F 97 24 H 113/67 95 Admit Weight 126 lb 15.78 oz Weight 120 lb 13.013 oz 04/30/18 05/01/18 05/02/18 06:59 06:59 06:59 Intake Total 643 974 Output Total 0 Balance 643 974 - Physical Examination General/Neuro: alert & oriented x3, NAD Neck: no JVD present Lungs: CTA, unlabored respirations Heart: other: (Irregular) Abdomen: NT/ND Extremities: other: (no edema.) - Telemetry Telemetry Rhythm: A fib HR 60-70's - Labs Result Diagrams: 05/01/18 03:59 05/01/18 03:59 Troponin/CKMB CK-MB (CK-2) 5.5 ng/mL (0-6.6) 04/23/18 11:51 Troponin I 0.092 ng/mL (< 0.028) H 04/23/18 11:51 - Assessment/Plan 1. Afib RVR, rate controlled. 2. Hepatic encephalopathy 3. Chronic hep C Cirrhosis 4. ESRD on HD 5. COPD 6. HTN PLAN: - Continue aspirin alone for stroke prophylaxis. - Not a candidate for anticoagulation. - Continue rate control only. Will switch diltiazem to PO.
--- NOTE | 2018-05-01 17:59 | PRG ---
DATE OF SERVICE: 05/01/2018 SUBJECTIVE: Patient was seen and examined at bedside and overnight events noted. Patient denies any shortness of breath or chest pain or palpitation. No history of nausea or vomiting or diarrhea or f ever or chills or cramps. OBJECTIVE: GENERAL: This is a well-built female in no apparent distress. VITAL SIGNS: Temperature , pulse 99, respiratory rate 20, blood pressure 106/71. HEENT: Atraumatic, normocephalic, Oral mucosa is moist NECK: Supple CARDIOVASCULAR: S1, S2 heard. Rate and rhythm regular. RESPIRATORY: Clear to auscultation. GASTROINTESTINAL: Abdomen is soft. MUSCULOSKELETAL: No tenderness, no edema. DERMATOLOGIC: No skin rash. NEUROLOGIC: Slightly confused. PSYCHIATRIC: Mood and affect normal. LABORATORY DATA: Potassium is 6, BUN is 43, creatinine is 7.71. ASSESSMENT AND PLAN: 1. End-stage renal disease, on hemodialysis Tuesday, Tuesday, and Tuesday. We will have dialysis to day and then Tuesday, Tuesday, and Tuesday. 2. Hyperkalemia. We will have dialysis today. 3. Edema, controlled. 4. Hypertension, stable. 5. Altered mentation, slightly better. 6. Anemia. We will add Epogen with dialysis and continue Epogen. 7. We will remove fluid with dialysis. Continue dialysis on Tuesday, Tuesday, and Tuesday.
[2018-05-01] MEDS: Cefepime 1 GM in Sodium Chloride 0.9% 100 ML IVPB SCH (18:07)
[2018-05-01] MEDS: Diltiazem HCl SR 60 mg Capsule PO SCH (20:11)
[2018-05-01] MEDS: Famotidine 20 MG TAB PO SCH (20:11)
--- NOTE | 2018-05-02 00:23 | RAD ---
FRONTAL VIEW CHEST: INDICATIONS: Short of breath. COMPARISON: 04/29/2018 FINDINGS: There is a left basilar density obscuring the left hemidiaphragm. Bilateral interstitial and alveola r opacities are present. There is enlargement of the cardiac silhouette and pulmonary vasculature. The chest is otherwise similar. IMPRESSION: 1. Left basilar density, which may relate to pleural fluid with atelectasis and/or pneumonia, progre ssed from prior examination. 2. Bilateral alveolar and interstitial opacities, which may relate to edema and/or atypical pneumoni a. 3. Continued followup is warranted. POS: [facility]
[2018-05-02] MEDS ORDERED: Dextrose 50% Abboject 50 ML SYRINGE ONE (00:35)
[2018-05-02] MEDS: Dextrose 10% in Water 1,000 ML IV SCH ×2 (02:22→22:24)
[2018-05-02 05:45] LABS: Anisocytosis SLIGHT = 6-15 cells (100X) (0-5/hpf); Band 15 % (5-11); Burr Cells SLIGHT = 2-5 cells (100X) (0-1/hpf); Hemoglobin 8.2 g/dL (14.0-18.0); Lymphocytes 5 % (21-51); MDiff Complete? YES; Mean Corpuscular HGB CONC 30.1 g/dL (32.0-36.0); Mean Corpuscular Hemoglobin 28.6 pg (27.0-31.0); Mean Corpuscular Volume 95.1 fL (78.0-98.0); Mean Platelet Volume 9.3 fL (7.4-10.4); Monocytes 11 % (0-10); Neutrophil 69 % (42-75); Nucleated RBC 1 % (0); Platelet Count 183 thou/uL (130-400); RBC Distribution Width 18.1 % (11.5-14.5); Red Blood Cell (RBC) Count 2.87 mill/uL (4.70-6.10); Target Cells SLIGHT = 2-5 cells (100X) (0-1/hpf); White Blood Cell (WBC) Count 10.7 thou/uL (4.8-10.8)
[2018-05-02 05:46] LABS: Anion Gap 14 mmol/L (10-20); BUN (Urea Nitrogen) 37 mg/dL (8.4-25.7); Calc. Creatinine Clearance 11 mL/min (70-130); Calcium 7.3 mg/dL (7.8-10.44); Carbon Dioxide 28 mmol/L (23-31); Chloride 98 mmol/L (98-107); Estimated GFR-MDRD 13; Glucose 65 mg/dL (80-115); Potassium 4.3 mmol/L (3.5-5.1); Sodium 136 mmol/L (136-145)
[2018-05-02] MEDS: Aspirin 81 mg Enteric Coated Tablet PO SCH (10:52)
[2018-05-02] MEDS: Cinacalcet HCl 30 MG TAB PO SCH (10:52)
[2018-05-02] MEDS: Stress 600 With Zinc 1 TAB PO SCH (10:53)
[2018-05-02] MEDS: Rifaximin 550 MG TAB PO SCH ×2 (10:53→20:29)
[2018-05-02] MEDS: Diltiazem HCl SR 60 mg Capsule PO SCH ×2 (10:53→20:28)
[2018-05-02] MEDS: Metoprolol Tartrate 25 MG TAB PO SCH ×2 (10:53→22:19)
--- NOTE | 2018-05-02 12:58 | PDOC.CTH ---
Cardiology Progress Note - Subjective No new issues. Still confused. - Objective Vital Signs Temp Pulse Resp BP Pulse Ox 05/02/18 11:21 97.7 F 85 20 115/75 99 05/02/18 10:59 100 24 H 05/02/18 08:00 99 05/02/18 07:52 98.3 F 86 19 111/63 99 05/02/18 06:58 89 20 95 05/02/18 04:00 98.0 F 96 19 109/59 L 97 05/02/18 02:13 94 L Admit Weight 126 lb 15.78 oz Weight 120 lb 13.013 oz 05/01/18 05/02/18 05/03/18 06:59 06:59 06:59 Intake Total 974 465 Output Total 0 Balance 974 465 - Physical Examination General/Neuro: NAD Neck: no JVD present Lungs: unlabored respirations Heart: other: (Irreg) Abdomen: NT/ND Extremities: other: (no edema) - Telemetry Telemetry Rhythm: Afib HR 70's. - Labs Result Diagrams: 05/02/18 04:27 05/02/18 04:27 Troponin/CKMB CK-MB (CK-2) 5.5 ng/mL (0-6.6) 04/23/18 11:51 Troponin I 0.092 ng/mL (< 0.028) H 04/23/18 11:51 - Assessment/Plan 1. Afib RVR, rate controlled. 2. Hepatic encephalopathy 3. Chronic hep C Cirrhosis 4. ESRD on HD 5. COPD 6. HTN PLAN: - Continue aspirin alone for stroke prophylaxis. - Not a candidate for anticoagulation. - Continue rate control only. On PO diltiazem.
--- NOTE | 2018-05-02 13:38 | PQF ---
CLINICAL DOCUMENTATION IMPROVEMENT CLARIFICATION FORM: ICD-10 Updated PLEASE DO AN ADDENDUM TO THE PROGRESS NOTE WITH ANY DOCUMENTATION UPDATES OR ADDITIONS AND CARRY THROUGH TO DC SUMMARY. THANK YOU. DATE: 05/02/18 ATTN : DR. TRAN Please exercise your independent, professional judgment in responding to the clarification form. Clinical indicators are provided on the bottom of this form for your review Diagnosis: "SEPSIS" Present on Admission (POA): [ x ] Yes [ ] No [ ] Unable to determine Coding guidelines require hospitals to identify whether a diagnosis was present on admission (POA) or not. To accurately assign the appropriate POA indicator, this information must be clearly documented within the medical record. CLINICAL INDICATORS - SIGNS / SYMPTOMS / LABS 05/01: "SEPSIS" ER NOTE: "EVALUATION OF UNRESPONSIVENESS" "GSC OF 4" 04/29 WBC: 9.7 04/30 WBC: 12.7 05/01 WBC: 13.8 VITALS 04/29: RR 28 PULSE 117 TEMP 101.2 05/01 BANDS: 32 RISKS: BACTEREMIA (PROGRESS NOTE05/01) - +PROVIDENCIA RETTGERI MULTIPLE COMORBIDITIES TREATMENT: BLOOD CULTURES (04/30) IV MAXIPIME 04/30-PRESENT) MECHANICAL VENT (04/23-04/27) CRITICAL CARE MONITORING SAP [employer] Winform Viewer(This form is maintained as a part of the permanent medical record) 2014 [employer]. All Rights Reserved [email or web address] [email or web address] Office: [phone] [email or web address]
--- NOTE | 2018-05-02 16:25 | PRG ---
DATE OF SERVICE: 05/02/2018 SUBJECTIVE: Haylee Molina is more confused. He is trying to climb out of the bed. OBJECTIVE: VITAL SIGNS: He is afebrile, heart rates in the 80s, respiratory rate is 20, oximetry is 99%. LUNGS: Remarkable for equal breath sounds. CARDIOVASCULAR: Regular rhythm. ABDOMEN: Slightly protuberant. EXTREMITIES: Cachectic. White count 10.7, hemoglobin 8.2, platelets 183,000. Sodium 136, potassium 4.3, chloride 98, bicarbo valentine 20, BUN 37, creatinine 5.31. Ordered another ammonia on him for today. He refused all his meds this morning. IMPRESSION: 1. End-stage renal disease. 2. End-stage cirrhosis. 3. Atrial fibrillation. 4. Status post 2 intubations this month for hepatic encephalopathy. 5. Chronic obstructive pulmonary disease, it was clinically apparent last admission. 6. Hypertension. His prognosis for any type of functional recovery is close to zero. Family still wants everything to be done. jail placement should be the next step once we could document that he is reasonabl y stable. At this point in time, he is not with fluctuating mental status.
--- NOTE | 2018-05-02 17:32 | PDOC.PN ---
- Subjective Encounter Start Date: 05/02/18 Encounter Start Time: 17:25 Subjective: f/u for severe FTT, ESRD, deconditioning, encephalopathy. Remains minimally -: responsive. - Objective Resuscitation Status: Resuscitation Status FULL:Full Resuscitation MAR Reviewed: Yes Vital Signs & Weight: Vital Signs (12 hours) Temp Pulse Resp BP Pulse Ox 05/02/18 14:13 93 20 94 L 05/02/18 11:21 97.7 F 85 20 115/75 99 05/02/18 10:59 100 24 H 05/02/18 08:00 99 05/02/18 07:52 98.3 F 86 19 111/63 99 05/02/18 06:58 89 20 95 Weight Admit Weight 126 lb 15.78 oz Weight 120 lb 13.013 oz Most Recent Monitor Data Heart Rate from ECG 80 NIBP 114/66 NIBP BP-Mean 97 Respiration from ECG 26 SpO2 100 I&O: 05/01/18 05/02/18 05/03/18 06:59 06:59 06:59 Intake Total 974 465 Output Total 0 Balance 974 465 Result Diagrams: 05/02/18 04:27 05/02/18 04:27 Additional Labs: Accuchecks 05/02/18 05/02/18 05/02/18 16:54 12:13 08:53 POC Glucose 95 101 93 05/02/18 05/02/18 05/02/18 05:37 04:06 01:06 POC Glucose 82 82 128 H 05/02/18 05/01/18 05/01/18 00:35 22:36 21:50 POC Glucose 58 L* 128 H 60 L 05/01/18 05/01/18 18:00 17:49 POC Glucose 129 H 46 L* Microbiology 04/30/18 09:52 Venous blood - Right Hand Blood Culture - Final Providencia rettgeri 04/30/18 09:26 Venous blood - Right Hand Blood Culture - Final Providencia rettgeri Laboratory Tests 04/02/18 04/02/18 04/02/18 05:13 12:11 18:49 WBC Hgb 9.0 L 8.9 L Band Neuts % (Manual) Potassium 6.0 H Creatinine 9.70 H Ammonia 04/03/18 04/03/18 04/04/18 04:10 04:10 03:16 WBC Hgb 8.2 L Band Neuts % (Manual) Potassium 4.4 5.2 H Creatinine 7.06 H 8.52 H Ammonia 04/04/18 04/04/18 04/23/18 03:16 10:51 12:49 WBC Hgb 8.6 L Band Neuts % (Manual) Potassium Creatinine Ammonia 39 103 H 04/25/18 04/29/18 05/01/18 03:20 05:32 03:59 WBC 13.8 H Hgb 9.2 L Band Neuts % (Manual) 32 H Potassium Creatinine Ammonia 66 41 05/02/18 05/02/18 04:27 15:38 WBC Hgb Band Neuts % (Manual) 15 H Potassium Creatinine Ammonia 18 Radiology Reviewed by me: Yes (PCXR - chronic changes bilat, ? L basilar atelectasis) EKG Reviewed by me: Yes (Tele - A-fib) Phys Exam - Physical Examination cachetic, lethargic, frail, minimally responsive HEENT: PERRLA, sclera anicteric, oral pharynx no lesions Neck: no nodes, no JVD, supple Respiratory: no wheezing, no rales, no rhonchi, clear to auscultation bilateral S1, S2 Cardiovascular: no significant murmur, no rub, irregular + hepatomegaly Gastrointestinal: no distention, positive bowel sounds severe generalized atrophy, contractures of lower extremities Musculoskeletal: no edema minimal response to questions, moves head on pillow Skin: normal turgor, cap refill <2 seconds Dx/Plan (1) Hepatic encephalopathy Code(s): K72.90 - HEPATIC FAILURE, UNSPECIFIED WITHOUT COMA Status: Acute Comment: Continue lactulose and rifaximin, Ammonia level normal currently (2) Sepsis due to Gram negative bacteria Code(s): A41.50 - GRAM-NEGATIVE SEPSIS, UNSPECIFIED Status: Acute Comment: Providencia spp per blood cx x 2, continue Cefepime (3) Chronic hepatitis C Code(s): B18.2 - CHRONIC VIRAL HEPATITIS C Status: Chronic (4) Cirrhosis of liver Code(s): K74.60 - UNSPECIFIED CIRRHOSIS OF LIVER Status: Chronic Comment: End-stage cirrhosis, continue lactulose and Xifaxan (5) ESRD (end stage renal disease) on dialysis Code(s): N18.6 - END STAGE RENAL DISEASE; Z99.2 - DEPENDENCE ON RENAL DIALYSIS Status: Chronic Comment: HD per Renal service (6) Protein-calorie malnutrition, severe Code(s): E43 - UNSPECIFIED SEVERE PROTEIN-CALORIE MALNUTRITION Status: Chronic Comment: end-stage process - Plan continue antibiotics, social service liaison Re-consult Palliative services for family meeting -: Clearly pt with end-stage process and hospice candidate -: Continue Cefepime for short-term -: Lactulose 20gm daily -: AM lab: BMP, CBC * .
[2018-05-02] MEDS: Cefepime 1 GM in Sodium Chloride 0.9% 100 ML IVPB SCH (17:45)
--- NOTE | 2018-05-02 18:32 | PRG ---
DATE OF SERVICE: 05/02/2018 SUBJECTIVE: Patient was seen and examined at bedside and overnight events noted. Patient denies any shortness of breath or chest pain or palpitation. No history of nausea or vomitin g or diarrhea or fever or chills or cramps. OBJECTIVE: GENERAL: This is a well-built male, in no apparent distress. VITAL SIGNS: Temperature 97.7, pulse 85, respiratory rate 18, blood pressure 115/75. HEENT: Atraumatic, normocephalic. Oral mucosa is moist. NECK: Supple. CARDIOVASCULAR: S1 and S2 heard. Rate and rhythm regular. RESPIRATORY: Clear to auscultation. GASTROINTESTINAL: Abdomen is soft. MUSCULOSKELETAL: No tenderness. No edema. DERMATOLOGIC: No skin rash. NEUROLOGIC: Slightly confused. PSYCHIATRIC: Mood and affect normal. LABORATORY DATA: Potassium 4.3, BUN 37, creatinine is 5.3. ASSESSMENT AND PLAN: 1. End-stage renal disease. Continue dialysis Tuesday, Tuesday, and Tuesday. No acute indication f or dialysis. 2. Hypertension, stable. 3. Edema. 4. Hyperkalemia, better. 5. Altered mentation. PLAN: We will continue dialysis Tuesday, Tuesday, and Tuesday as tolerated. No dialysis today.
[2018-05-02] MEDS: Famotidine 20 MG TAB PO SCH (20:29)
--- NOTE | 2018-05-03 00:33 | CON ---
DATE OF CONSULTATION: 05/02/2018 REASON FOR CONSULTATION: Bacteremia. HISTORY OF PRESENT ILLNESS: A 67-year-old patient who has a history of chronic hepatitis C with unknown treatment record as well as advanced liver disease with cirrhosis and prior episode of hepatic encephalopathy, COPD who had been admitted previously to this hospital with episodes of decompensated COPD. At the beginning of April this year, patient presented with dyspnea and was found to be in diastolic heart failure and atrial flutter. Patient was managed with Cardizem and diuresis. He developed mental status changes, had to be intubated temporarily. There was a concern with spontaneous bacterial peritonitis which was ruled out, he was treated with lactulose with improvement in mentation. Electrophysiology evaluated the patient and we felt that he was not a candidate for ablation. He was discharged on Simethicone, prednisone 10 mg daily, Protonix, lactulose, albuterol, Cardizem, aspirin, Augmentin, Proventil, Tylenol, Lopressor and Sensipar. He also had a history of end-stage renal disease on hemodialysis through an AV fistula in the left upper extremity. On 04/11 for the same admission, he had a left upper extremity AV dialysis fistulogram and underwent percutaneous angioplasty of a focal severe narrowing of the innominate vein just proximal to the superior vena cava. This area of stenosis was distal to the previously placed innominate vein stent. Patient had been transferred to [facility] and there, he developed altered mental status and was transferred back to the emergency room, on arrival, he was obtunded and ammonia level was found to be 110. He had to be intubated and placed on ventilator and admitted to the Intensive Care Unit. Initial findings included temperature of 98, pulse of 58, BP 140/60, respirations of 10, O2 sat 94-99% with 40%. He appeared cachectic. There was no evidence of oral candidiasis. Neck was supple, without jugular lymphadenopathy. Lungs with bilateral clear breath sounds. Heart without any appreciable murmurs. Abdomen, scaphoid, not distended or tender. Sodium 140, creatinine 6.36, calcium 8.0, bilirubin 0.8, AST 24, ALT 18. Ammonia 103, total protein 7.6, albumin 2.7. Initial pH 7.47, pCO2 of 36, pO2 of 91 and white cell count 10.6, hemoglobin 9.2, platelets 224,000 with 1% bands. Chest x -ray showed what could be construed as representing an infiltrate in the lower lobe. This was described by the radiologist as possible left basilar density which could be either fluid or atelectases or early pneumonia which had progressed from prior exam. Currently, Mr. Molina is in the ICU. He is extubated. He established eye contact, but still confused. He thought he was in [place] for example, we did follow commands, but his recollection was quite limited. He denied any headaches, no visual symptoms. No sore throat, odynophagia, dysphagia, no chest pain, no abdominal pain, no genitourinary symptoms. The replies to my questions are of limited accuracy in view of his yet confused state. 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 SOCIAL HISTORY: Former smoker. FAMILY HISTORY: Noncontributory. ALLERGIES: None. CURRENT MEDICATIONS: Include Tylenol, DuoNeb, Ecotrin, Tums, cefepime, Sensipar , Cardizem, Procrit, Pepcid, Robitussin, lactulose, Lopressor, morphine, Zofran , Xifaxan, Senokot, Mylicon. PHYSICAL EXAMINATION: VITAL SIGNS: Temperature max 101.2 on 04/29 and has been afebrile since there is a segment of days before the he was afebrile as well. His BP is 115/75 and pulse 93, respirations 20, O2 sat 99% with 3 liters nasal cannula. SKIN: Evaluation with no areas of skin breakdown. The patient has an accessible and functional left AV fistula. Patient has prominent collateral veins in the skin of the left side of his upper chest probably associated with the innominate vein stenosis area. He has temporal wasting. There is no evidence of lymphadenopathy. HEENT: Ocular movements appeared conjugate. Sclerae white. Nasal passages patent. Oral cavity with numerous missing teeth. Oral mucosa is somewhat dry. NECK: Appears supple and his lungs with no obvious crackles or wheezing. CARDIOVASCULAR: S1, S2 with a soft aortic murmur. ABDOMEN: Soft and not distended. No tenderness, question of bladder distention. EXTREMITIES: The patient has tenderness on palpation of the right knee, but no evidence of swelling or effusion noted. Marked atrophy of the musculature of the limbs. Plantar responses are flexor. No asterixis or clonus. Pulses are faintly palpable in dorsalis pedis and 1+ in popliteal. He is able to move extremities on command. He establishes eye contact, appears to be alert, but he has poor recollection of events. LABORATORY DATA: White cell count went up from 7.9-12.7 and now back down to 10.7 and the hemoglobin was 8.9 went up to 9.5 and now 8.2, platelet count 106 up to 179 down to 110 and is up to 183 at this time. Bands were normal on arrival and now went up to 32% and now back down to 15%. Chemistry findings, we have Sodium 136, creatinine 5.31, chloride 98, carbon dioxide 28, and bilirubin is 1.0, AST 20, ALT 18, alkaline phosphatase 115. Ammonia was 103 on arrival, is down to 18 at this time. Albumin 2.3, globulin 4.9. Tumor marker was less than 2. We do not have urinalysis. Ascites showed 395 WBCs with 20% neutrophils, total neutrophil count in the ascitic fluid is about 80. Microbiology with 2/2 sets of blood cultures collected from right hand with Proteus Providencia rettgeri. These sets were collected about 10 minutes apart. The organism has a broad susceptibility profile except for ampicillin. IMAGING STUDIES: Included chest x-ray that we discussed above. Patient had an echocardiogram a few days ago actually on 04/02 and this showed EF 60-65, normal RV, aortic valve sclerosis, moderate mitral regurg, severe tricuspid regurg, small pericardial effusion. There is an abdominal ultrasound done on with cirrhotic morphology of the liver, moderate ascites. There is a transjugular intrahepatic portosystemic shunt between the right hepatic vein and portal vein which is patent. Patient had previous diagnostic paracentesis which was not consistent with peritonitis. ASSESSMENT: 1. Hepatitis C with unknown prior treatment, history probably no treatment before with an end-stage liver disease. 2. Portal hypertension with prior trends hepatojugular shunt. 3. 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 4. Recurrent episodes of hepatic encephalopathy. 5. Providencia rettgeri bacteremia. DISCUSSION: Differential diagnosis includes TIPS shunt colonization by Providencia species versus urinary tract infection or pyocystitis versus another intraabdominal inflammatory process which appears to be less likely versus translocation of bacteria into the bloodstream due to his chronic liver disease and absence or decreased reticular endothelial function. Colonization of the innominate vein stent would be another possibility, but less likely. The patient can be managed with eventual transition to oral quinolone and I would treat for 2 weeks, even if there is infection of the TIPS shunt those 2 weeks seem to be enough to clear the bacteremia. I do not see any evidence of a vascular access infection at this point in time and although the infection of the innominate vein is not ruled out. If there is recrudescence of the same bacteria, then either he has endocarditis and will need a CAR or he has infection of the areas of stenting either in the innominate vein or the TIPS shunt area. Evaluate CT abd/pelvis. MTDD
[2018-05-03 04:22] LABS: Anion Gap 16 mmol/L (10-20); BUN (Urea Nitrogen) 56 mg/dL (8.4-25.7); Calc. Creatinine Clearance 9 mL/min (70-130); Calcium 7.4 mg/dL (7.8-10.44); Carbon Dioxide 25 mmol/L (23-31); Chloride 98 mmol/L (98-107); Estimated GFR-MDRD 10; Glucose 93 mg/dL (80-115); Potassium 4.5 mmol/L (3.5-5.1); Sodium 134 mmol/L (136-145)
[2018-05-03 05:36] LABS: Band 13 % (5-11); Hemoglobin 8.4 g/dL (14.0-18.0); Lymphocytes 8 % (21-51); MDiff Complete? YES; Mean Corpuscular Hemoglobin 28.6 pg (27.0-31.0); Mean Platelet Volume 9.1 fL (7.4-10.4); Monocytes 11 % (0-10); Neutrophil 68 % (42-75); Platelet Count 186 thou/uL (130-400); RBC Distribution Width 17.7 % (11.5-14.5); Red Blood Cell (RBC) Count 2.96 mill/uL (4.70-6.10); White Blood Cell (WBC) Count 10.6 thou/uL (4.8-10.8)
[2018-05-03] MEDS: Cinacalcet HCl 30 MG TAB PO SCH (12:25)
[2018-05-03] MEDS: Metoprolol Tartrate 25 MG TAB PO SCH ×2 (12:26→20:53)
[2018-05-03] MEDS: Stress 600 With Zinc 1 TAB PO SCH (12:26)
[2018-05-03] MEDS: Rifaximin 550 MG TAB PO SCH ×2 (12:26→20:53)
[2018-05-03] MEDS: Aspirin 81 mg Enteric Coated Tablet PO SCH (12:29)
[2018-05-03] MEDS: Diltiazem HCl SR 60 mg Capsule PO SCH ×2 (12:31→20:54)
[2018-05-03] MEDS: Epoetin (ESRD) 10,000 UNITS/ML VIAL IVP SCH (13:37)
--- NOTE | 2018-05-03 17:41 | PRG ---
DATE OF SERVICE: 05/03/2018 SUBJECTIVE: Patient was seen and examined at bedside and overnight events noted. Patient denies any shortness of breath or chest pain or palpitation. No history of nausea or vomiting or diarrhea or f ever or chills or cramps. OBJECTIVE: General: This is a well-built male in no apparent distress. Vital Signs: Temperature 98.1, pulse 104, respiratory rate 18, and blood pressure 120/70. HEENT: Atraumatic, normocephalic, Oral mucosa is moist. Neck: Supple. Cardiovascular: S1 and S2 heard. Rate and rhythm regular. Respiratory: Clear to auscultation. Gastrointestinal: Abdomen is soft. Musculoskeletal: No tenderness, No edema. Dermatologic: No skin rash. Neurologic: He is confused. Psychiatric: Mood and affect normal. LABORATORY DATA: Potassium is 4.5, BUN is 56, creatinine is 6.9. ASSESSMENT AND PLAN: 1. End-stage renal disease, seen during dialysis. Continue hemodialysis as tolerated on dialysis Mo , Tuesday, and Tuesday. 2. Hepatic encephalopathy, not getting better. 3. Hypertension. 4. Edema. 5. Hyperkalemia, better. 6. Prognosis guarded. We will continue dialysis as tolerated.
[2018-05-03] MEDS: Cefepime 1 GM in Sodium Chloride 0.9% 100 ML IVPB SCH (17:56)
[2018-05-03] MEDS: Famotidine 20 MG TAB PO SCH (20:54)
--- NOTE | 2018-05-03 20:54 | PRG ---
DATE OF SERVICE: 05/03/2018 SUBJECTIVE: Mr. Molina remains clinically essentially the same. OBJECTIVE: VITAL SIGNS: He is afebrile, heart rate 104, respiratory rate is 18, oximetry is 94, and blood press ure 112/70. LUNGS: Clear. HEART: Regular rhythm. ABDOMEN: Soft. LABORATORY DATA: White count 10.6, hemoglobin 8.4, platelets 186,000. Electrolytes are unremarkable . BUN 56, creatinine 6.52, it was not recorded in the computer yet. IMPRESSION: 1. End-stage renal disease. 2. End-stage cirrhosis. 3. Providencia bacteremia, source is unclear. 4. Status post hepatic encephalopathy x2 in the last month that led to intubation. .
--- NOTE | 2018-05-03 21:15 | PDOC.PN ---
- Subjective Encounter Start Date: 05/03/18 Encounter Start Time: 15:35 Subjective: f/u for persistent encephalopathy and sepsis, ESRD, severe deconditioning -: and FTT. - Objective Resuscitation Status: Resuscitation Status DNR:Do Not Resuscitate MAR Reviewed: Yes Vital Signs & Weight: Vital Signs (12 hours) Temp Pulse Resp BP Pulse Ox 05/03/18 19:58 98.3 F 114 H 16 111/63 90 L 05/03/18 18:50 94 L 05/03/18 18:48 94 L 05/03/18 17:30 97.5 F L 107 H 18 103/54 L 94 L 05/03/18 15:26 98.1 F 18 112/70 94 L 05/03/18 14:42 104 H 16 94 L 05/03/18 12:22 91 L 05/03/18 12:12 97.5 F L 102 H 16 119/60 94 L Weight Admit Weight 126 lb 15.78 oz Weight 119 lb 7.849 oz Most Recent Monitor Data Heart Rate from ECG 80 NIBP 114/66 NIBP BP-Mean 97 Respiration from ECG 26 SpO2 100 I&O: 05/02/18 05/03/18 05/04/18 06:59 06:59 06:59 Intake Total 465 1300 Output Total 550 Balance 465 1300 -550 Result Diagrams: 05/03/18 04:01 05/03/18 04:01 Additional Labs: Accuchecks 05/03/18 05/03/18 05/03/18 20:06 16:30 12:22 POC Glucose 84 77 68 L 05/03/18 05/02/18 04:09 23:58 POC Glucose 92 96 Microbiology 04/30/18 09:52 Venous blood - Right Hand Blood Culture - Final Providencia rettgeri 04/30/18 09:26 Venous blood - Right Hand Blood Culture - Final Providencia rettgeri Laboratory Tests 04/02/18 04/02/18 04/02/18 05:13 12:11 18:49 WBC Hgb 9.0 L 8.9 L Band Neuts % (Manual) Potassium 6.0 H Creatinine 9.70 H Ammonia 04/03/18 04/03/18 04/04/18 04:10 04:10 03:16 WBC Hgb 8.2 L Band Neuts % (Manual) Potassium 4.4 5.2 H Creatinine 7.06 H 8.52 H Ammonia 04/04/18 04/04/18 04/23/18 03:16 10:51 12:49 WBC Hgb 8.6 L Band Neuts % (Manual) Potassium Creatinine Ammonia 39 103 H 04/25/18 04/29/18 05/01/18 03:20 05:32 03:59 WBC 13.8 H Hgb 9.2 L Band Neuts % (Manual) 32 H Potassium Creatinine Ammonia 66 41 05/02/18 05/02/18 04:27 15:38 WBC Hgb Band Neuts % (Manual) 15 H Potassium Creatinine Ammonia 18 EKG Reviewed by me: Yes (Tele - A-fib) Phys Exam - Physical Examination minimally responsive, cachetic, ill-appearing, contracted HEENT: PERRLA, sclera anicteric, oral pharynx no lesions Neck: no nodes, no JVD, supple, full ROM Respiratory: no wheezing, no rhonchi, clear to auscultation bilateral S1, S2 Cardiovascular: no significant murmur, no rub, gallop, irregular Gastrointestinal: soft, non-tender, no distention, positive bowel sounds severe contractures of LE's, generalized severe muscle atrophy Musculoskeletal: no edema, pulses present moves UE's A x O x 2 Skin: normal turgor, cap refill <2 seconds Dx/Plan (1) Hepatic encephalopathy Code(s): K72.90 - HEPATIC FAILURE, UNSPECIFIED WITHOUT COMA Status: Acute Comment: Continue lactulose and rifaximin, Ammonia level normal currently (2) Sepsis due to Gram negative bacteria Code(s): A41.50 - GRAM-NEGATIVE SEPSIS, UNSPECIFIED Status: Acute Comment: Providencia spp per blood cx x 2, continue Cefepime (3) Chronic hepatitis C Code(s): B18.2 - CHRONIC VIRAL HEPATITIS C Status: Chronic (4) Cirrhosis of liver Code(s): K74.60 - UNSPECIFIED CIRRHOSIS OF LIVER Status: Chronic Comment: End-stage cirrhosis, continue lactulose and Xifaxan (5) ESRD (end stage renal disease) on dialysis Code(s): N18.6 - END STAGE RENAL DISEASE; Z99.2 - DEPENDENCE ON RENAL DIALYSIS Status: Chronic Comment: HD per Renal service (6) Protein-calorie malnutrition, severe Code(s): E43 - UNSPECIFIED SEVERE PROTEIN-CALORIE MALNUTRITION Status: Chronic Comment: end-stage process - Plan plan discussed w/ family, continue antibiotics, PT/OT, public health social worker, speech therapy, respiratory therapy, DVT proph w/SCDs Continue supportive mgmt -: Palliative meeting with family for consideration of hospice -: Code Status: DNR, confirmed with family, son -: Transfer to medical floor -: Plan for NH transfer in next 24-48h * .
[2018-05-04 04:54] LABS: Band 6 % (5-11); Hemoglobin 8.2 g/dL (14.0-18.0); Lymphocytes 16 % (21-51); MDiff Complete? YES; Mean Corpuscular HGB CONC 31.3 g/dL (32.0-36.0); Mean Corpuscular Hemoglobin 28.6 pg (27.0-31.0); Mean Corpuscular Volume 91.3 fL (78.0-98.0); Mean Platelet Volume 9.1 fL (7.4-10.4); Monocytes 15 % (0-10); Neutrophil 63 % (42-75); PLT Morphology Comment Appears Adequate; Platelet Count 170 thou/uL (130-400); RBC Distribution Width 17.9 % (11.5-14.5); Red Blood Cell (RBC) Count 2.85 mill/uL (4.70-6.10)
[2018-05-04 05:01] LABS: Anion Gap 14 mmol/L (10-20); BUN (Urea Nitrogen) 28 mg/dL (8.4-25.7); Calc. Creatinine Clearance 14 mL/min (70-130); Calcium 8.1 mg/dL (7.8-10.44); Carbon Dioxide 28 mmol/L (23-31); Chloride 98 mmol/L (98-107); Estimated GFR-MDRD 17; Glucose 105 mg/dL (80-115); Potassium 3.7 mmol/L (3.5-5.1); Sodium 136 mmol/L (136-145)
[2018-05-04] MEDS: Cinacalcet HCl 30 MG TAB PO SCH (09:42)
[2018-05-04] MEDS: Diltiazem HCl SR 60 mg Capsule PO SCH ×2 (09:43→19:40)
[2018-05-04] MEDS: Stress 600 With Zinc 1 TAB PO SCH (09:43)
[2018-05-04] MEDS: Metoprolol Tartrate 25 MG TAB PO SCH ×2 (09:43→19:40)
[2018-05-04] MEDS: Aspirin 81 mg Enteric Coated Tablet PO SCH (09:43)
[2018-05-04] MEDS: Rifaximin 550 MG TAB PO SCH ×2 (09:43→19:41)
--- NOTE | 2018-05-04 11:42 | PDOC.PN ---
- Subjective Encounter Start Date: 05/04/18 Encounter Start Time: 11:40 Subjective: f/u for encephalopathy, FTT, severe deconditioning and sepsis. Receiving -: Cefepime. States feeling better, more awake. - Objective Resuscitation Status: Resuscitation Status DNR:Do Not Resuscitate MAR Reviewed: Yes Vital Signs & Weight: Vital Signs (12 hours) Temp Pulse Resp BP Pulse Ox 05/04/18 10:53 97.8 F 98 20 119/59 L 90 L 05/04/18 09:33 107 H 16 90 L 05/04/18 07:25 97.9 F 107 H 22 H 128/73 94 L 05/04/18 05:46 100 14 90 L 05/04/18 04:00 97.8 F 101 H 16 113/68 92 L 05/04/18 03:37 90 L 05/04/18 00:00 97.8 F 94 16 124/64 92 L 05/03/18 23:50 90 L Weight Admit Weight 126 lb 15.78 oz Weight 114 lb 3 oz Most Recent Monitor Data Heart Rate from ECG 80 NIBP 114/66 NIBP BP-Mean 97 Respiration from ECG 26 SpO2 100 I&O: 05/03/18 05/04/18 05/05/18 06:59 06:59 06:59 Intake Total 1300 Output Total 550 Balance 1300 -550 Result Diagrams: 05/04/18 03:57 05/04/18 03:57 Additional Labs: Accuchecks 05/04/18 05/04/18 05/04/18 10:10 04:43 00:27 POC Glucose 127 H 99 100 05/03/18 05/03/18 05/03/18 20:06 16:30 12:22 POC Glucose 84 77 68 L Microbiology 04/30/18 09:52 Venous blood - Right Hand Blood Culture - Final Providencia rettgeri 04/30/18 09:26 Venous blood - Right Hand Blood Culture - Final Providencia rettgeri Laboratory Tests 04/02/18 04/02/18 04/02/18 05:13 12:11 18:49 WBC Hgb 9.0 L 8.9 L Band Neuts % (Manual) Potassium 6.0 H Creatinine 9.70 H Ammonia 04/03/18 04/03/18 04/04/18 04:10 04:10 03:16 WBC Hgb 8.2 L Band Neuts % (Manual) Potassium 4.4 5.2 H Creatinine 7.06 H 8.52 H Ammonia 04/04/18 04/04/18 04/23/18 03:16 10:51 12:49 WBC Hgb 8.6 L Band Neuts % (Manual) Potassium Creatinine Ammonia 39 103 H 04/25/18 04/29/18 05/01/18 03:20 05:32 03:59 WBC 13.8 H Hgb 9.2 L Band Neuts % (Manual) 32 H Potassium Creatinine Ammonia 66 41 05/02/18 05/02/18 04:27 15:38 WBC Hgb Band Neuts % (Manual) 15 H Potassium Creatinine Ammonia 18 Phys Exam - Physical Examination alert, responds briefly to questions, cachetic HEENT: PERRLA, sclera anicteric, oral pharynx no lesions Neck: no nodes, no JVD, supple, full ROM Respiratory: no wheezing, no rales, no rhonchi, clear to auscultation bilateral tachycardic, S1, S2 Cardiovascular: no rub, gallop, irregular Gastrointestinal: soft, non-tender, no distention, positive bowel sounds generalized atrophy Musculoskeletal: no edema, pulses present Neurological: moves all 4 limbs Skin: normal turgor, cap refill <2 seconds Dx/Plan (1) Hepatic encephalopathy Code(s): K72.90 - HEPATIC FAILURE, UNSPECIFIED WITHOUT COMA Status: Acute Comment: Continue lactulose and rifaximin, Ammonia level normal currently (2) Sepsis due to Gram negative bacteria Code(s): A41.50 - GRAM-NEGATIVE SEPSIS, UNSPECIFIED Status: Acute Comment: Providencia spp per blood cx x 2, continue Cefepime, likely transition to po Levaquin for d/c (3) Chronic hepatitis C Code(s): B18.2 - CHRONIC VIRAL HEPATITIS C Status: Chronic Comment: unclear if tx or managed (4) Cirrhosis of liver Code(s): K74.60 - UNSPECIFIED CIRRHOSIS OF LIVER Status: Chronic Comment: End-stage cirrhosis, continue lactulose and Xifaxan (5) ESRD (end stage renal disease) on dialysis Code(s): N18.6 - END STAGE RENAL DISEASE; Z99.2 - DEPENDENCE ON RENAL DIALYSIS Status: Chronic Comment: HD per Renal service (6) Protein-calorie malnutrition, severe Code(s): E43 - UNSPECIFIED SEVERE PROTEIN-CALORIE MALNUTRITION Status: Chronic Comment: end-stage process - Plan continue antibiotics, high school social studies teacher Continue Cefepime until disposition for transfer -: Palliative care consult appreciated -: Likely will transition to hospice after d/c to NH -: HD per Renal service -: CM assisting with NH option, likely [facility] * .
[2018-05-04] MEDS: Cefepime 1 GM in Sodium Chloride 0.9% 100 ML IVPB SCH (17:19)
--- NOTE | 2018-05-04 18:11 | PRG ---
DATE OF SERVICE: 05/04/2018 SUBJECTIVE: Patient was seen and examined at bedside and overnight events noted. Patient denies any shortness of breath or chest pain or palpitation. No history of nausea or vomitin g or diarrhea or fever or chills or cramps. OBJECTIVE: GENERAL: This is a well-built male, in no apparent distress. VITAL SIGNS: Temperature 97.8, pulse , respiratory rate 18, blood pressure 131/71. HEENT: Atraumatic, normocephalic. Oral mucosa is moist. NECK: Supple. CARDIOVASCULAR: S1 and S2 heard. Rate and rhythm regular. RESPIRATORY: Clear to auscultation. GASTROINTESTINAL: Abdomen is soft. MUSCULOSKELETAL: No tenderness. No edema. DERMATOLOGIC: No skin rash. NEUROLOGIC: Confused. PSYCHIATRIC: Mood and affect normal. LABORATORY DATA: Potassium 3.7, BUN 28, creatinine is 4.1. ASSESSMENT AND PLAN: 1. End-stage renal disease. Continue dialysis Tuesday, Tuesday, and Tuesday. 2. Hepatic encephalopathy 3. Hypertension. 4. Edema. 5. Anemia. Continue Epogen. Prognosis guarded. Continue on dialysis Tuesday, Tuesday, and Tuesday.
--- NOTE | 2018-05-04 19:22 | PRG ---
DATE OF SERVICE: 05/04/2018 PHYSICAL EXAMINATION: VITAL SIGNS: The patient is afebrile. Heart rate is 102, respiratory rate 22, oximetry is 94% on ro om air, blood pressure 131/71. LUNGS: Clear today. HEART: Regular rhythm. ABDOMEN: Soft. LABORATORY DATA: White count 9, hemoglobin 8.2, platelets 170. Sodium 136, potassium 3.7, chloride 98, bicarbonate 28, BUN 38, creatinine 4.18. IMPRESSION: Multiorgan dysfunction, clinically stable. Surprisingly today he knew he was in [facility] and answered questions quickly. His prognosis is still dismal. He is still being treat ed for his Providencia bacteremia. He appears to be stable from a pulmonary standpoint. We will sign off.
[2018-05-04] MEDS: Famotidine 20 MG TAB PO SCH (19:40)
[2018-05-05 05:22] LABS: Hemoglobin 8.6 g/dL (14.0-18.0); Hypochromia SLIGHT = 6-15 cells (100X) (0-5/hpf); Lymphocytes 10 % (21-51); MDiff Complete? YES; Mean Corpuscular HGB CONC 30.9 g/dL (32.0-36.0); Mean Corpuscular Hemoglobin 28.2 pg (27.0-31.0); Mean Corpuscular Volume 91.2 fL (78.0-98.0); Mean Platelet Volume 9.5 fL (7.4-10.4); Monocytes 15 % (0-10); Neutrophil 75 % (42-75); PLT Morphology Comment Appears Adequate; Platelet Count 186 thou/uL (130-400); RBC Distribution Width 17.9 % (11.5-14.5); Red Blood Cell (RBC) Count 3.05 mill/uL (4.70-6.10); White Blood Cell (WBC) Count 8.6 thou/uL (4.8-10.8)
[2018-05-05 05:24] LABS: Anion Gap 15 mmol/L (10-20); BUN (Urea Nitrogen) 42 mg/dL (8.4-25.7); Calc. Creatinine Clearance 9 mL/min (70-130); Carbon Dioxide 28 mmol/L (23-31); Chloride 95 mmol/L (98-107); Estimated GFR-MDRD 12; Glucose 69 mg/dL (80-115); Potassium 4.2 mmol/L (3.5-5.1); Sodium 134 mmol/L (136-145)
[2018-05-05] MEDS: Diltiazem HCl SR 60 mg Capsule PO SCH (08:37)
[2018-05-05] MEDS: Metoprolol Tartrate 25 MG TAB PO SCH (08:37)
[2018-05-05] MEDS: Cinacalcet HCl 30 MG TAB PO SCH (08:37)
[2018-05-05] MEDS: Aspirin 81 mg Enteric Coated Tablet PO SCH (08:37)
[2018-05-05] MEDS: Stress 600 With Zinc 1 TAB PO SCH (08:38)
[2018-05-05 10:33] VITALS: BMI 15.8
--- NOTE | 2018-05-05 13:00 | DIS ---
DATE OF ADMISSION: 04/23/2018 DATE OF DISCHARGE: 05/05/2018 DISCHARGE DIAGNOSES: 1. Hepatic encephalopathy, chronic. 2. Sepsis secondary to gram negative bacteremia with Providencia species. 3. Chronic hepatitis C. 4. Cirrhosis of the liver. 5. End-stage renal disease. 6. Severe protein calorie malnutrition. 7. Severe deconditioning. CONSULTATIONS: Dr. Odom with Pulmonology Service. Dr. Barrera with Nephrology Service. Dr. Wright with Infectious Disease Service. Dr. Webb with Cardiology Service. PERTINENT LABORATORY DATA AND X-RAY FINDINGS: Creatinine ranged between 3.66-6.93, estimated GFR ran ged between 9-20. Serum ammonia level ranged between 18-103. AFP tumor marker less than 2. CBC le wed a white blood cell count ranged between 8.6-13.8, hemoglobin ranged between 8.2-9.5. Hepatitis B surface antigen nonreactive, 05/01/2018. Blood cultures x2 dated 04/30/2018 showed 2/2 positive for Providencia rettgeri. Portable chest x-ray dated 04/23/2018 showed left basilar atelectasis. Abdom inal ultrasound dated 04/24/2018 showed cirrhotic morphology of the liver with moderate ascites. Mil d gallbladder wall thickening with gallbladder sludge. HOSPITAL COURSE: The patient was initially admitted after presenting with altered mentation of uncle ar etiology. The patient underwent extensive evaluation in the context of chronic hepatic encephalop athy due to end-stage liver disease. The patient was noted with elevated ammonia levels up to 110, p laced on lactulose therapy. The patient also underwent multiple metabolic and radiographic workup wi th evidence of bacteremia with Providencia species as stated previously. No specific source was iden tified during the hospital course after evaluation by the Infectious Disease Service. The patient wa s placed on broad spectrum antibiotic therapy to cover this organism. The patient transitioned to or al Levaquin after a course of IV cefepime. The patient continued to receive maintenance hemodialysis throughout the hospital course with slow clinical improvement. The patient remained with protracted encephalopathic changes throughout the hospital course with minimal improvement by the time of disch arge. Due to the patient's overall comorbid status and in multiorgan failure to include advanced adarsh er and kidney disease, the patient was evaluated by the Palliative Care Service. After multiple disc ussions with the patient and family members, the patient decided to pursue palliative care measures a nd half-way home placement. The patient did convert to a do not resuscitate code status and i s wishing to pursue hospice care after discharge. I have examined the patient at the time of dischar ge and discussed the followup instructions. The patient will transfer to [facility] on 05/05/2018. DISCHARGE MEDICATIONS: 1. Sensipar 60 mg p.o. daily. 2. Folic acid with vitamin D3 one tablet p.o. daily. 3. Lopressor 25 mg p.o. b.i.d. 4. Tylenol 650 mg p.o. q.4 hours p.r.n. 5. Proventil HFA 2 puffs inhaled q.i.d. p.r.n. 6. Enteric coated aspirin 81 mg p.o. daily. 7. Diltiazem SR 60 mg p.o. b.i.d. 8. DuoNeb 3 mL nebulized q.4 hours p.r.n. 9. Lactulose 20 grams p.o. daily. 10. Levaquin 500 mg p.o. q.48 hours until 05/10/2018. 11. Protonix 40 mg p.o. b.i.d. 12. Simethicone 80 mg p.o. q.i.d. p.r.n. FOLLOWUP: Patient will follow up with Dr. Didier Johnston on discharge. CONDITION ON DISCHARGE: Guarded. ACTIVITY: ad rodriguez. SPECIAL INSTRUCTIONS: The patient will receive [facility] with likely transition to hospice care. DIET: Regular. CODE STATUS: Do not resuscitate. DISPOSITION: Transfer to [facility], 05/05/2018. Total time preparing and coordinating discharge is 38 minutes.
[2018-05-05] MEDS: Epoetin (ESRD) 10,000 UNITS/ML VIAL IVP SCH (13:13)
[2018-05-05 13:29] VITALS: BP 128/76; TEMP 98.2
--- NOTE | 2018-05-05 17:34 | PRG ---
DATE OF SERVICE: 05/05/2018 SUBJECTIVE: Patient was seen and examined at bedside and overnight events noted. Patient denies any shortness of breath or chest pain or palpitation. No history of nausea or vomitin g or diarrhea or fever or chills or cramps. OBJECTIVE: GENERAL: This is a well-built male, in no apparent distress. VITAL SIGNS: Temperature 98.2, pulse 92, respiratory rate 16, blood pressure 128/76. HEENT: Atraumatic, normocephalic. Oral mucosa is moist. NECK: Supple. CARDIOVASCULAR: S1 and S2 heard. Rate and rhythm regular. RESPIRATORY: Clear to auscultation. GASTROINTESTINAL: Abdomen is soft. MUSCULOSKELETAL: No tenderness. No edema. DERMATOLOGIC: No skin rash. NEUROLOGIC: Alert and awake and oriented x3. No focal neurologic deficits. Moving all the extremit ies. PSYCHIATRIC: Mood and affect normal. LABORATORY DATA: Potassium 4.2, BUN 42, creatinine 5.7. ASSESSMENT AND PLAN: 1. End-stage renal disease. The patient and family wishes to have hospice. No dialysis. 2. Hepatic encephalopathy. 3. Hypertension. 4. Edema. 5. Anemia. I will sign off. Please call with any questions.
== END 2018-05-05 13:34 | DRG 871 ==
LOC: ERS 11:47 → CCU 13:28 → IMCU/EMU 04-30 11:39 → T4-A 05-03 17:23
PROVIDERS: ADMIT Internal Medicine Infectious Disease; ATTEND Internal Medicine Infectious Disease
PROC: 5A1945Z Respiratory Ventilation, 24-96 Consecutive Hours (ICD-10-PCS; principal; 2018-04-23)
PROC: 5A1D70Z Performance of Urinary Filtration, Intermittent, Less than 6 Hours Per Day (ICD-10-PCS; 2018-04-23)
DX: A41.50 Gram-negative sepsis, unspecified (principal); J96.01 Acute respiratory failure with hypoxia; N18.6 End stage renal disease; E43 Unspecified severe protein-calorie malnutrition; G93.41 Metabolic encephalopathy; I50.32 Chronic diastolic (congestive) heart failure; I13.2 Hypertensive heart and chronic kidney disease with heart failure and with stage 5 chronic kidney disease, or end stage renal disease; R18.8 Other ascites; K76.6 Portal hypertension; I48.92 Unspecified atrial flutter; N25.81 Secondary hyperparathyroidism of renal origin; Z68.1 Body mass index [BMI] 19.9 or less, adult; Z66 Do not resuscitate; K72.90 Hepatic failure, unspecified without coma; E21.3 Hyperparathyroidism, unspecified; B19.20 Unspecified viral hepatitis C without hepatic coma; J44.9 Chronic obstructive pulmonary disease, unspecified; K74.60 Unspecified cirrhosis of liver; Z99.2 Dependence on renal dialysis; Z95.1 Presence of aortocoronary bypass graft; Z79.899 Other long term (current) drug therapy; Z79.82 Long term (current) use of aspirin; Z79.52 Long term (current) use of systemic steroids; F17.210 Nicotine dependence, cigarettes, uncomplicated; D63.1 Anemia in chronic kidney disease; E87.5 Hyperkalemia; E88.09 Other disorders of plasma-protein metabolism, not elsewhere classified; I27.20 Pulmonary hypertension, unspecified; R74.8 Abnormal levels of other serum enzymes; K21.9 Gastro-esophageal reflux disease without esophagitis; I48.0 Paroxysmal atrial fibrillation
CPT/HCPCS: 31500; 36415; 36416; 49083; 71045; 76705; 80048; 80053; 82105; 82140; 82553; 82805; 83735; 84100; 84484; 85007; 85027; 85060; 85610; 87040; 87077; 87149; 87186; 87340; 89051; 90935; 93005; 93010; 94002; 94003; 94640; 94760; A4216; G0257; G8996-GN-CJ; G8997-GN-CI; J0692; J2270; J3010; J7050; J7620; Q4081; S0028